=== PATIENT | male | born 1945 | race Caucasian/White ===

== ENCOUNTER → 2019-02-08 08:34 | Outpatient (CLI) | payer MEDICARE, OTHER, SELFPAY ==
[2016-07-09 14:46] VITALS: BMI 29.7
[2019-02-08 09:17] LABS: Hemoglobin 13.4 g/dl (13.0-16.5); Mean Corp Hgb Conc 33.5 g/gl (32-36); Mean Corpuscular Hgb 28.3 pg (27.0-32.0); Mean Corpuscular Volume 84.4 fL (80-94); Mean Platelet Vol. 8.5 fl (6.2-12.0); Platelet Count 214 K/mm3 (150-450); RBC Distribution Width CV 15.8 % (11.6-14.6); RBC Distribution Width SD 47.9 fl (35.1-43.9); Red Blood Count 4.74 M/mm3 (4.6-6.2); White Blood Count 4.5 K/mm3 (4.4-11.0)
[2019-02-08 09:22] LABS: Scan Indicated on CBC? Y/N NO
[2019-02-08 09:50] LABS: Progesterone Level 0.27 ng/mL (See Comment); Vitamin B12 377 pg/mL (211-911); Vitamin D,25 Hydroxy 31.2 ng/mL (29.95-100.01)
[2019-02-08 10:02] LABS: Homocysteine 9.4 umol/L (3.2-10.7)
[2019-02-08 10:09] LABS: Hemoglobin A1c 7.5 % (4.2-6.3)
[2019-02-08 11:00] LABS: ALB/GLOB Ratio 1.1 RATIO (0.9-2.4); AST(SGOT) 11 U/L (15-37); Alanine Aminotransfer ALT/SGPT 27 U/L (16-61); Albumin, Serum 3.7 g/dL (3.2-5.0); Alkaline Phosphatase 71 U/L (45-117); Anion Gap 5 (5-15); BUN 18 mg/dL (7-18); BUN/Creat Ratio 18.5 RATIO (10-20); CRP 3.15 mg/L (0.0-3.0); Calcium,Total 8.8 mg/dL (8.5-10.1); Chloride 108 mmol/L (98-107); Cholesterol 221 mg/dL (200); Creatinine, Serum 0.97 mg/dL (0.70-1.30); EST Glomerular Filtration Rate 80 mL/min (>60); Est Glom Filt Rate - Afr Amer 97 mL/min (>60); Estradiol 29.9 pg/mL; Follicle Stimulating Hormone 7.3 mIU/mL; Free T3 2.7 pg/mL (2.18-3.98); Globulin 3.4 g/dL (2.2-4.2); Glucose 221 mg/dL (74-106); High Density Lipoprotein 38 mg/dL; Iron 66 ug/dL (65-175); Luteinizing Hormone 3.2 mIU/mL; Magnesium 2.1 mg/dL (1.6-2.6); PSA,Total - Annual Screen 3.23 ng/mL (0.00-4.00); Potassium 4.2 mmol/L (3.5-5.1); Prolactin 6.7 ng/mL; Protein, Total 7.1 g/dL (6.4-8.2); Sodium Level 140 mmol/L (136-145); T4 Free Direct 1.15 ng/dL (0.76-1.46); Thyroid Stim Hormone (TSH) 2.09 uIU/mL (0.358-3.74); Triglycerides 128 mg/dL; Very Low Density Lipoprotein 26 mg/dL (5-40)
[2019-02-08 22:56] LABS: CRP, High Sensitivity Cardiac 3.21 mg/L
[2019-02-12 12:06] LABS: DHEA Sulfate 88.7 ug/dL (30.9-295.6); Insulin Like Growth Factor 207 ng/mL (41-179); Testosterone, % Free 2.65 % (1.50-4.20); Testosterone, Free 7.13 ng/dL (5.00-21.00)
[2019-02-13 13:12] LABS: Sex Hormone-binding Globulin 40.1 nmol/L (19.3-76.4); Testosterone, Total 269 ng/dL (264-916)
== END ==
PROVIDERS: Family Provider Internal Medicine; PCP Internal Medicine; Referring Provider Registered Nurse; Visit Provider Registered Nurse
DX: M62.81 Muscle weakness (generalized) (principal); E11.9 Type 2 diabetes mellitus without complications; E88.81 Metabolic syndrome and other insulin resistance; R68.82 Decreased libido; E66.9 Obesity, unspecified
CPT/HCPCS: 36415; 80053; 80061; 82306; 82533; 82607; 82627; 82670; 82746; 83001; 83002; 83036; 83090; 83540; 83735; 84144; 84146; 84153; 84270; 84305; 84402; 84403; 84436; 84439; 84443; 84481; 85027; 86140; 86141; 82626; G0103

== ENCOUNTER → 2019-09-18 10:04 | Outpatient (CLI) | payer MEDICARE, OTHER, SELFPAY ==
[2016-07-09 14:46] VITALS: BMI 29.7
[2019-09-18 11:16] LABS: Hematocrit 41.3 % (40-54); Hemoglobin 12.8 g/dL (13.0-16.5); Mean Corpuscular Hgb 24.1 pg (27.0-32.0); Mean Corpuscular Volume 77.8 fL (80-94); Mean Platelet Vol. 8.9 fl (6.2-12.0); Platelet Count 254 K/mm3 (150-450); RBC Distribution Width CV 15.8 % (11.6-14.6); RBC Distribution Width SD 44.2 fl (35.1-43.9); Red Blood Count 5.31 M/mm3 (4.6-6.2); White Blood Count 5.1 K/mm3 (4.4-11.0)
[2019-09-18 11:52] LABS: Progesterone Level 0.39 ng/mL (See Comment); Vitamin B12 371 pg/mL (211-911)
[2019-09-18 14:18] LABS: AST(SGOT) 8 U/L (15-37); Alanine Aminotransfer ALT/SGPT 22 U/L (16-61); Albumin, Serum 3.5 g/dL (3.2-5.0); Alkaline Phosphatase 55 U/L (45-117); Anion Gap 2 (5-15); BUN 16 mg/dL (7-18); BUN/Creat Ratio 13.6 RATIO (10-20); CRP < 2.90 mg/L (0.0-3.0); Calcium,Total 8.5 mg/dL (8.5-10.1); Chloride 105 mmol/L (98-107); Cholesterol 196 mg/dL (200); Creatinine, Serum 1.18 mg/dL (0.70-1.30); EST Glomerular Filtration Rate 64 mL/min (>60); Est Glom Filt Rate - Afr Amer 78 mL/min (>60); Estradiol 43.5 pg/mL; Follicle Stimulating Hormone 0.5 mIU/mL; Free T3 2.8 pg/mL (2.18-3.98); Globulin 3.5 g/dL (2.2-4.2); Glucose 260 mg/dL (74-106); High Density Lipoprotein 34 mg/dL; Luteinizing Hormone < 0.2 mIU/mL; Potassium 4.3 mmol/L (3.5-5.1); Prolactin 13.6 ng/mL; Sodium Level 134 mmol/L (136-145); T4 Free Direct 1.09 ng/dL (0.76-1.46); T4 Total, Thyroxin 9.5 ug/dL (4.5-12.1); Thyroid Stim Hormone (TSH) 1.87 uIU/mL (0.358-3.74); Triglycerides 86 mg/dL; Very Low Density Lipoprotein 17 mg/dL (5-40)
[2019-09-21 08:08] LABS: DHEA Sulfate 70.3 ug/dL (30.9-295.6); Insulin Like Growth Factor 206 ng/mL (41-179); Testosterone, % Free 3.32 % (1.50-4.20); Testosterone, Free 22.97 ng/dL (5.00-21.00)
[2019-09-21 13:50] LABS: Sex Hormone-binding Globulin 23.5 nmol/L (19.3-76.4); Testosterone, Total 692 ng/dL (264-916)
== END ==
PROVIDERS: Family Provider Internal Medicine; PCP Internal Medicine; Referring Provider Nurse Practitioner Family; Visit Provider Nurse Practitioner Family
DX: R53.82 Chronic fatigue, unspecified (principal); M62.81 Muscle weakness (generalized); R68.82 Decreased libido; E66.9 Obesity, unspecified; Z12.5 Encounter for screening for malignant neoplasm of prostate
CPT/HCPCS: 36415; 80053; 80061; 82533; 82607; 82627; 82670; 82746; 83001; 83002; 83735; 84144; 84146; 84270; 84305; 84402; 84403; 84436; 84439; 84443; 84481; 85027; 86140; 82626

== ENCOUNTER → 2019-11-15 08:51 | Outpatient (CLI) | payer MEDICARE, SELFPAY ==
[2016-07-09 14:46] VITALS: BMI 29.7
[2019-11-15 09:31] LABS: Hematocrit 43.5 % (40-54); Hemoglobin 13.7 g/dL (13.0-16.5); Mean Corp Hgb Conc 31.5 g/dL (32-36); Mean Corpuscular Hgb 24.4 pg (27.0-32.0); Mean Corpuscular Volume 77.5 fL (80-94); Mean Platelet Vol. 8.8 fl (6.2-12.0); Platelet Count 270 K/mm3 (150-450); RBC Distribution Width CV 16.3 % (11.6-14.6); RBC Distribution Width SD 45.4 fl (35.1-43.9); Red Blood Count 5.61 M/mm3 (4.6-6.2); White Blood Count 6.7 K/mm3 (4.4-11.0)
[2019-11-15 10:17] LABS: Progesterone Level 0.42 ng/mL (See Comment); Vitamin B12 497 pg/mL (211-911)
[2019-11-15 10:35] LABS: ALB/GLOB Ratio 0.9 RATIO (0.9-2.4); AST(SGOT) 9 U/L (15-37); Alanine Aminotransfer ALT/SGPT 24 U/L (16-61); Albumin, Serum 3.5 g/dL (3.2-5.0); Alkaline Phosphatase 57 U/L (45-117); Anion Gap 5 (5-15); BUN 20 mg/dL (7-18); BUN/Creat Ratio 16.4 RATIO (10-20); Calcium,Total 8.8 mg/dL (8.5-10.1); Chloride 105 mmol/L (98-107); Cholesterol 206 mg/dL (200); Creatinine, Serum 1.22 mg/dL (0.70-1.30); EST Glomerular Filtration Rate 62 mL/min (>60); Est Glom Filt Rate - Afr Amer 75 mL/min (>60); Estradiol 59.6 pg/mL; Globulin 3.8 g/dL (2.2-4.2); Glucose 239 mg/dL (74-106); High Density Lipoprotein 35 mg/dL; Potassium 4.3 mmol/L (3.5-5.1); Protein, Total 7.3 g/dL (6.4-8.2); Sodium Level 137 mmol/L (136-145); Triglycerides 105 mg/dL; Very Low Density Lipoprotein 21 mg/dL (5-40)
[2019-11-18 12:07] LABS: Testosterone, % Free 3.91 % (1.50-4.20)
[2019-11-20 15:40] LABS: DHEA Sulfate 78.8 ug/dL (30.9-295.6); Testosterone, Total 555 ng/dL (264-916)
== END ==
PROVIDERS: PCP Internal Medicine; Referring Provider Nurse Practitioner Family; Visit Provider Nurse Practitioner Family
DX: R53.82 Chronic fatigue, unspecified (principal); M62.81 Muscle weakness (generalized); R68.82 Decreased libido
CPT/HCPCS: 36415; 80053; 80061; 82607; 82627; 82670; 82746; 84144; 84402; 84403; 85027; 82626

== ENCOUNTER → 2020-03-21 09:12 | Outpatient (CLI) | payer MEDICARE, SELFPAY ==
[2016-07-09 14:46] VITALS: BMI 29.7
[2020-03-21 10:20] LABS: Hematocrit 45.4 % (40-54); Hemoglobin 14.4 g/dL (13.0-16.5); Mean Corp Hgb Conc 31.7 g/dL (32-36); Mean Corpuscular Hgb 26.1 pg (27.0-32.0); Mean Corpuscular Volume 82.4 fL (80-94); Platelet Count 228 K/mm3 (150-450); RBC Distribution Width CV 16.3 % (11.6-14.6); RBC Distribution Width SD 48.3 fl (35.1-43.9); Red Blood Count 5.51 M/mm3 (4.6-6.2); White Blood Count 5.4 K/mm3 (4.4-11.0)
[2020-03-21 12:00] LABS: Vitamin B12 312 pg/mL (211-911)
[2020-03-21 12:01] LABS: AST(SGOT) 12 U/L (15-37); Alanine Aminotransfer ALT/SGPT 28 U/L (16-61); Albumin, Serum 3.6 g/dL (3.2-5.0); Alkaline Phosphatase 61 U/L (45-117); Anion Gap 7 (5-15); BUN 22 mg/dL (7-18); BUN/Creat Ratio 20.8 RATIO (10-20); Chloride 103 mmol/L (98-107); Cholesterol 230 mg/dL (200); Creatinine, Serum 1.06 mg/dL (0.70-1.30); EST Glomerular Filtration Rate 73 mL/min (>60); Est Glom Filt Rate - Afr Amer 88 mL/min (>60); Estradiol 35.3 pg/mL; Globulin 3.7 g/dL (2.2-4.2); Glucose 236 mg/dL (74-106); High Density Lipoprotein 33 mg/dL; Protein, Total 7.3 g/dL (6.4-8.2); Sodium Level 136 mmol/L (136-145); Triglycerides 145 mg/dL; Very Low Density Lipoprotein 29 mg/dL (5-40)
[2020-03-21 12:46] LABS: Progesterone Level < 0.21 ng/mL (See Comment)
[2020-03-26 09:36] LABS: Testosterone, % Free 2.93 % (1.50-4.20); Testosterone, Free 10.93 ng/dL (5.00-21.00)
[2020-03-26 15:59] LABS: DHEA Sulfate 63.5 ug/dL (30.9-295.6); Testosterone, Total 373 ng/dL (264-916)
== END ==
PROVIDERS: PCP Internal Medicine; Referring Provider Nurse Practitioner Family; Visit Provider Nurse Practitioner Family
DX: R53.82 Chronic fatigue, unspecified (principal); R68.82 Decreased libido; M62.81 Muscle weakness (generalized); I10 Essential (primary) hypertension; R73.9 Hyperglycemia, unspecified
CPT/HCPCS: 36415; 80053; 80061; 82607; 82627; 82670; 82746; 84144; 84402; 84403; 85027; 82626

== ENCOUNTER 2020-05-01 08:55 | Day surgery (SDC) | payer MEDICARE, SELFPAY ==
[2016-07-09 14:46] VITALS: BMI 29.7
[2020-04-30 12:52] VITALS: BMI 31.4
--- NOTE | 2020-04-30 13:21 | EKG12_ITS ---
Test Reason : PRE OP Blood Pressure : / mmHG Vent. Rate : 065 BPM Atrial Rate : 065 BPM P-R Int : 216 ms QRS Dur : 120 ms QT Int : 414 ms P-R-T Axes : 034 -07 047 degrees QTc Int : 430 ms Sinus rhythm with 1st degree A-V block Inferior infarct , age undetermined , cannot be excluded Abnormal ECG Confirmed by MANOHAR MCBRIDE, CECY ([id number]), slot editor JAI DEL CID ([id number]) on 05/03/2020 2:38:36 PM Referred By: Wallace Galicia Confirmed By:CECY VILLELA MD
[2020-04-30 13:57] LABS: Absolute Lymphocyte Count 2.16 X10^3/uL (0.83-4.51); Absolute Neutrophil Count 4.5 X10^3/uL (2.0-7.7); Basophil# 0.03 X10^3/uL; Basophil% 0.4 % (0-1); Eosinophils% 2.7 % (0-5); Hematocrit 43.6 % (40-54); Hemoglobin 14.4 g/dL (13.0-16.5); Lymphocyte # 2.16 X10^3/ul (4.0); Lymphocyte % 28.7 % (19-41); Mean Corpuscular Hgb 27.5 pg (27.0-32.0); Mean Corpuscular Volume 83.4 fL (80-94); Mean Platelet Vol. 8.9 fl (6.2-12.0); Monocyte# 0.63 X10^3/uL; Monocyte% 8.4 % (0-10); NRBC Flagged by Analyzer 0 % (0-5); Neutrophil # 4.48 X10^3/uL (2.7-7.7); Neutrophil % 59.5 % (47-70); Platelet Count 247 K/mm3 (150-450); RBC Distribution Width CV 15.8 % (11.6-14.6); RBC Distribution Width SD 47.2 fl (35.1-43.9); Red Blood Count 5.23 M/mm3 (4.6-6.2); White Blood Count 7.5 K/mm3 (4.4-11.0)
[2020-04-30 14:17] LABS: Hemoglobin A1c 9.1 % (3.8-5.6)
[2020-04-30 14:25] LABS: Anion Gap 5 (5-15); BUN 24 mg/dL (7-18); BUN/Creat Ratio 21.8 RATIO (10-20); Calcium,Total 9.6 mg/dL (8.5-10.1); Chloride 107 mmol/L (98-107); EST Glomerular Filtration Rate 70 mL/min (>60); Est Glom Filt Rate - Afr Amer 84 mL/min (>60); Glucose 177 mg/dL (74-106); Potassium 4.1 mmol/L (3.5-5.1); Sodium Level 139 mmol/L (136-145)
[2020-04-30 15:18] LABS: Probe Check PASS; Specimen Processing Control PASS
[2020-05-01] VITALS (7 sets, daily range): BP systolic 121–160; BP diastolic 63–90; PULSE 59–81; RESP 16–18; TEMP 33.1–36.9; O2SAT 88–100; BMI 31.6
--- NOTE | 2020-05-01 | HERN_PTH ---
PATIENT: SUDHEER HERNANDEZ LOC: [facility] [place] U#:[id number] AGE/SX: 74/M ROOM: RE05/01/[address]: Dr. Wallace Galicia MD : 1945 BED: DIS: 05/01/2020 SPEC #: [id number] RECD: 05/01/20 14:48 STATUS: VILMA REAdam #: [id number] JOYD: 05/01/20 00:[address]: Wallace Galicia DEPT: SURGICAL PATHOLOGY RECD BY: Cliff De Anda ENTERED: 05/02/20 12:03 SP TYPE: Hernia OTHR DR: Dr. Katelyn Baker MD Tissues: HERNIA Procedures: Surgery Specimen Level III HEADER OPERATION: Incarcerated umbilical hernia repair PRE-OP DIAGNOSIS: Incarcerated umbilical hernia TISSUE SUBMITTED: Hernia sac and contents MICROSCOPIC DIAGNOSIS Hernia sac and contents, herniorrhaphy: Fibrosis and chronic inflammation. Hemorrhagic fat necrosis, nodular. AM:maldonado 05/03/20 MICROSCOPIC DESCRIPTION Slides are reviewed. GROSS DESCRIPTION Received in fixative is one container labeled with the patient's name and designated hernia sac and contents. The specimen consists of a piece of fibromembranous, fibroadipose tissue, sac-like structure measuring 3.5 x 2.5 x 1.5 cm. Also present in the container are two pieces of adipose tissue measuring in aggregate 6.5 x 5 x 1.5 cm. Also present in the container is an ovoid piece of pink, congested nodule measuring 3 x 2.5 x 2 cm. Sections of the ovoid nodule reveal congested and hemorrhagic cut surfaces. Security Shift Supervisor sections are submitted in three cassettes. Cassettes 2 and 3 contain the sections from the ovoid, congested nodule. / SJ:maldonado 05/02/20 TC:5 [facility]: [id number]
[2020-05-01 09:26] LABS: Bedside Glucose 209 mg/dL (70-110)
[2020-05-01] MEDS: Lactated Ringers 1,000 ML 100 ML IV (09:46)
--- NOTE | 2020-05-01 12:38 | PCM.HP.BLA ---
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: No Is patient in pain?: Yes Allergies No Known Allergies Allergy (Verified 04/30/20 12:40) Medications glipiZIDE [Glucotrol] 15 mg PO BID 09/25/13 [History Confirmed 04/30/20] metFORMIN HCl [Glucophage] 1,000 mg PO BIDCM 09/25/13 [History Confirmed 04/30/20] Ascorbic Acid [Vitamin C] 1,000 mg PO DAILY 04/30/20 [History Confirmed 04/30/20] Multivitamin [Daily Multiple Vitamin] 1 ea PO DAILY 04/30/20 [History Confirmed 04/30/20] [place]-3S/Dha/Epa/Fish Oil [Fish Oil 1,200 mg Softgel] 2 ea PO DAILY 04/30/20 [History Confirmed 04/30/20] Turmeric/Turmeric Root Extract [Turmeric 500 mg Capsule] 2 tab PO DAILY 04/30/20 [History Confirmed 04/30/20] cephalexin 500 mg capsule 500 mg PO .QID #20 cap 04/30/20 [Rx Confirmed 04/30/20] lisinopril 10 mg-hydrochlorothiazide 12.5 mg tablet 1 tab PO DAILY 04/30/20 [History Confirmed 04/30/20] [facility], LAT[facility] Medical History Frostnip (Acute) Surgical History History of arthroscopy of left knee (Acute) history skin graft right leg (Acute) Family History Sister Cancer Diabetes Social History (Updated 04/30/20 @ 12:[address] Wallace Galicia MD) Smoking Status: Never smoker alcohol intake: never substance use type: does not use HPI HPI HPI: LUISA HERNANDEZ, is a 74 M who presents to the office today for surgical consultation regarding a one-week long history of an incarcerated umbilical hernia. The patient states that he has had an umbilical hernia for several years. Intermittently would become uncomfortable would last several days and then resolved. On this occasion it did not resolve. He was seen at urgent care and instructed that he had a umbilical hernia and surgical consultation was recommended. He denies fever or chills or sweats or bright red blood per rectum or or melena. Appetites been normal. Normal bowel movements. States that over the past period of time his blood sugars have been running higher that that is been over more of an extended period of time as he is already had a hemoglobin A1c that was 8.3. He did have a change in his medications. He notes that he has coronary stents. He denies chest pain. Denies heart attack. Denies CVA. He has not had any nausea or vomiting. There is been no imaging. He has not had any previous abdominal surgery. He has not had any previous groin hernia surgery HPI HPI HPI: LUISA HERNANDEZ, is a 74 M who presents to the office today for ROS General General: No weight change, appetite, fatigue, colon cancer, breast cancer or weakness HEENT HEENT: No difficulty swallowing, eye injury, eye surgery, swollen glands or hoarseness Endo Endocrine: Yes diabetes mellitus; no thyroid disease, thyroid cancer, Hair loss, heat intolerance or cold intolerance Skin Skin: No rash or changing moles Breast Breast: No left breast lump, right breast lump, nipple discharge, breast pain, abnormal mammogram, abnormal US or breast enlargement Musc Musculoskeletal: Yes back problems and arthritis; no rheumatoid arthritis, gout or joint pain Cardio Cardiovascular: Yes high blood pressure; no murmur, pacemaker, heart disease, atrial fibrillation, heart attack, heart stent, palpitations, shortness of breat with exertion or chest pain Psych Psychiatric: No depression, anxiety or hearing voices Resp Respiratory: No shortness of breath, Yes sleep apnea, No cough, No COPD, No asthma, No emphysema, No wheezing Gastro Gastrointestinal: No abdominal pain, No nausea or vomiting, No diarrhea, No constipation, No blood in stool, Yes acid reflux, No hemorrhoids, No ulcers, No gallbladder problem, No black,tarry stools Sourav Hematologic: No blood thinners, No blood disorders, No bleeding, No anemia, No blood clots Neuro Neurologic: No system reviewed and no additional complaints, except as docu, No as per HPI, No abnormal walking, No abnormal hearing, No abnormal movements, No abnormal speech, No behavioral changes, No burning sensations, No confusion, No seizure-like activity, No unsteadiness, No dizziness, No localized weakness, No frequent falls, No headache(s), No lack of coordination, No loss of vision, No memory loss, Yes numbness, No other visual disturbances, No radiating pain, No restless legs, No sensory deficit, No fainting, Yes tingling, No tremor(s), No weakness, No other Exam Const General: cooperative, comfortable, no acute distress Nutritional Appearance: obese Orientation: alert, awake, oriented x3 HENMT Head: normal to inspection Eyes General: appearance normal, both eyes and all related structures Chest Breast Palpation: No nipple discharge Resp Effort & Inspection: normal respiratory effort Auscultation: clear to auscultation bilaterally Cardio Rate: regular rate Rhythm: regular rhythm Heart Sounds: no murmurs GI Other: Obese, incarcerated erythematous umbilical hernia tender, remainder the abdomen is soft and nontender, bowel sounds present, Neuro Cognition: normal cognition Extrem General: no calf tenderness Psych Affect: normal affect Assessment & Plan Problems 1. Incarcerated umbilical hernia K42.0 Plan Incarcerated umbilical hernia, mild cellulitis at the site. I recommend that we initiate cephalexin 500 g orally 4 times daily and I have written for 5-day supply. I tried to add him onto the OR schedule today but I was instructed that time he would not permit. We therefore will get him COVID tested and have him added on tomorrow. I do not believe that he can wait any longer. Admittedly he is 1 week into this episode so it is hard to cry this is a immediate emergency. He is aware of the technique, benefit, risk, alternatives. He is aware that I will not be able to utilize mesh in the repair. He is aware that the wound may need to be left open and packed. He is aware that we may utilize a drain instead. He is aware that this may be overnight surgery or outpatient procedure. We additionally discussed Covid-19. The [facility] is currently reporting a low local incidence. Cc: Dr. Katelyn Galicia M.D., F.A.C.S. Medications New: cephalexin 500 mg PO .QID 20 caps 0RF Coding Level of Care Code Off vis,new,level 3 Diagnoses Incarcerated umbilical hernia K42.0 I have re-examined the patient. There are no clinical changes since date of exam.
--- NOTE | 2020-05-01 12:39 | PCM.DC.GS ---
Discharge Diet: Light diet - advance as tolerated - if you have questions about your diet instructions, please talk to you doctor. Discharge Activity: May Not Drive - for 1 week or while taking narcotic pain medicine. May shower in (days): 1 Lifting Restrictions: 10 pounds Call your doctor if your incision/area has: Continuous Slow Oozing, Sudden Increased Bleeding, Increased Pain/ Swelling, Increased Redness, Foul Smelling Discharge Call your doctor if you observe: Fever of 101 or Higher Suture Line Care: Avoid Pulling/Pushing, Avoid Pinching/Bending Additional Dressing/Incision Instructions:: Change or remove dressing in 4 days. Leave steri-strips in place for 1 week. Allergies/Adverse Reactions: Allergies No Known Allergies Allergy (Verified 05/01/20 09:28) Medications to take at Discharge glipiZIDE [Glucotrol] 15 mg PO BID 09/25/13 metFORMIN HCl [Glucophage] 1,000 mg PO BIDCM 09/25/13 Ascorbic Acid [Vitamin C] 1,000 mg PO DAILY 04/30/20 Multivitamin [Daily Multiple Vitamin] 1 ea PO DAILY 04/30/20 [place]-3S/Dha/Epa/Fish Oil [Fish Oil 1,200 mg Softgel] 2 ea PO DAILY 04/30/20 Turmeric/Turmeric Root Extract [Turmeric 500 mg Capsule] 2 tab PO DAILY 04/30/20 cephalexin 500 mg capsule 500 mg PO .QID #20 cap 04/30/20 lisinopril 10 mg-hydrochlorothiazide 12.5 mg tablet 1 tab PO DAILY 04/30/20 Primary Care Physician: Katelyn Baker MD [Primary Care Provider] - Test Results: Test results from this visit will be discussed in further detail at your follow-up appointment, if applicable. Please Follow Up With: Wallace Galicia MD - [phone] When: Call to make an appointment to be seen in about 10 days.
[2020-05-01] MEDS: Cefazolin 2 GM in 0.9% Normal Saline 100 ML IV (13:12)
--- NOTE | 2020-05-01 13:53 | PCM.OPRPT ---
Problem List (1) Incarcerated umbilical hernia Status: Acute Report of Operation Date of Procedure: 05/01/20 Pre-Operative Diagnosis: Incarcerated umbilical hernia Post-Operative Diagnosis: Strangulated umbilical hernia Surgery/Procedure Performed:: Strangulated umbilical herniorrhaphy Description of Surgical Findings:: Timeout and informed consent was obtained. 74-year-old gentleman was taken to the operating placed on the table underwent general endotracheal intubation anesthesia. Ancef 2 g given intravenously preoperatively. The abdomen was sterilely prepped and draped. Inferior to the umbilicus a transverse incision was created sharp dissection carried down through the subcutaneous tissue. The hernia sac was encountered was densely adherent to the umbilical skin carefully and tediously I dissected it free I opened the sac there was a small ball of necrotic tissue that literally came out there was some inflamed peritoneal fatty tissue. Where needed I secured that with 0 Vicryl suture ligatures and excised that tissue. There was no evidence of any bowel involvement. I repaired the peritoneum with a running suture of 0 Vicryl. I then repaired the fascia which had a significant defect of at least 4 cm of the meter with multiple simple sutures of 0 Nurolon. The fascia and skin was anesthetized with 0.5% Marcaine. A total of 30 cc was used. The skin edges were approximated opted for Monocryl subdermal stitches. Steri-Strips Telfa cottonball OpSite dressings applied. Sponge and instrument and needle counts were reported to the surgeon to be correct. Blood loss was minimal. Specimen is incarcerated umbilical hernial contents from the strangulated preperitoneal fatty tissue. Drains none. Blood loss minimal. The patient was taken to the recovery room in satisfactory edition without apparent complication Wallace Galicia M.D., F.A.C.S. Type of Anesthesia:: General Anesthesiologist: Og Shook
[2020-05-01] MEDS: Bupivacaine Mpf 0.5% 30 ML VIAL (14:05)
[2020-05-01 14:41] LABS: Bedside Glucose 135 mg/dL (70-110)
[2020-05-01] MEDS: HYDROcodone Bitartrate/Apap 5/325 Tablet PO ×2 (15:56→16:46)
== END 2020-05-01 17:32 | disposition home or self-care (01) ==
LOC: SDC 08:56 → AC 08:56
PROVIDERS: Anesthesiology; PCP Internal Medicine; Referring Provider Surgery; Visit Provider Surgery
PROC: (CPT 49587; principal; 2020-05-01 10:50)
DX: K42.0 Umbilical hernia with obstruction, without gangrene (principal); I10 Essential (primary) hypertension; E78.00 Pure hypercholesterolemia, unspecified; E11.9 Type 2 diabetes mellitus without complications; G47.30 Sleep apnea, unspecified; E66.9 Obesity, unspecified; Z68.31 Body mass index [BMI] 31.0-31.9, adult; Z79.84 Long term (current) use of oral hypoglycemic drugs; Z79.899 Other long term (current) drug therapy; Z20.828 Contact with and (suspected) exposure to other viral communicable diseases
CPT/HCPCS: 00830; 49587; 36415; 80048; 82962; 83036; 85025; 87635; 88302; 88304; 93005; J7120; J2405; U0003

== ENCOUNTER → 2020-08-28 09:09 | Outpatient (CLI) | payer MEDICARE, SELFPAY ==
[2016-07-09 14:46] VITALS: BMI 29.7
[2020-05-01 09:28] VITALS: BMI 31.6
[2020-08-28 10:30] LABS: Absolute Lymphocyte Count 1.46 X10^3/uL (0.83-4.51); Absolute Neutrophil Count 2.2 X10^3/uL (2.0-7.7); Basophil# 0.04 X10^3/uL; Basophil% 0.9 % (0-1); Eosinophil# 0.23 X10^3/uL; Eosinophils% 5.3 % (0-5); Hematocrit 42.6 % (40-54); Hemoglobin 14.1 g/dL (13.0-16.5); Lymphocyte # 1.46 X10^3/ul (4.0); Lymphocyte % 33.6 % (19-41); Mean Corp Hgb Conc 33.1 g/dL (32-36); Mean Corpuscular Hgb 29.4 pg (27.0-32.0); Mean Corpuscular Volume 88.8 fL (80-94); Mean Platelet Vol. 9.1 fl (6.2-12.0); Monocyte# 0.41 X10^3/uL; Monocyte% 9.4 % (0-10); NRBC Flagged by Analyzer 0 % (0-5); Neutrophil # 2.19 X10^3/uL (2.7-7.7); Neutrophil % 50.6 % (47-70); Platelet Count 222 K/mm3 (150-450); RBC Distribution Width CV 14.2 % (11.6-14.6); RBC Distribution Width SD 45.7 fl (35.1-43.9); White Blood Count 4.3 K/mm3 (4.4-11.0)
[2020-08-28 11:00] LABS: Color, Urine Straw (Yellow); Glucose, Dipstick Normal (Normal); Ketone-Dipstick Negative (Negative); Leukocyte Esterase-Dipstick Negative /ul (Negative); Nitrite-Dipstick Negative (Negative); Occult Blood-Urine Negative /ul (Negative); Protein-Dipstick Negative (Negative); Urine Bilirubin Dipstick Negative (Negative); Urine Clarity Clear (Clear); Urine Urobilinogen Normal (Normal)
[2020-08-28 11:12] LABS: AST(SGOT) 9 U/L (15-37); Alanine Aminotransfer ALT/SGPT 26 U/L (16-61); Albumin, Serum 3.6 g/dL (3.2-5.0); Alkaline Phosphatase 62 U/L (45-117); Anion Gap 5 (5-15); BUN 19 mg/dL (7-18); BUN/Creat Ratio 19.4 RATIO (10-20); Calcium,Total 9.1 mg/dL (8.5-10.1); Chloride 106 mmol/L (98-107); Cholesterol 226 mg/dL (200); Creatinine, Serum 0.98 mg/dL (0.70-1.30); EST Glomerular Filtration Rate 79 mL/min (>60); Est Glom Filt Rate - Afr Amer 96 mL/min (>60); Globulin 3.7 g/dL (2.2-4.2); Glucose 214 mg/dL (74-106); High Density Lipoprotein 40 mg/dL; Potassium 4.2 mmol/L (3.5-5.1); Protein, Total 7.3 g/dL (6.4-8.2); Sodium Level 138 mmol/L (136-145); Triglycerides 129 mg/dL; Very Low Density Lipoprotein 26 mg/dL (5-40)
[2020-08-30 12:23] LABS: BNP,B-Type NATRIURETIC PEPTIDE 14.2 pg/mL (0-100)
[2020-08-30 14:39] LABS: Vitamin D,25 Hydroxy 44.3 ng/mL
[2020-08-30 20:08] LABS: Red Blood Cell Count Test/G6PD 4.71 x10E6/uL (4.14-5.80)
[2020-08-30 21:39] LABS: G6PD Quant Test 246 (127-427)
== END ==
PROVIDERS: PCP Internal Medicine; Referring Provider Nurse Practitioner Family; Visit Provider Nurse Practitioner Family
DX: R53.82 Chronic fatigue, unspecified (principal); M62.81 Muscle weakness (generalized); I10 Essential (primary) hypertension; E11.9 Type 2 diabetes mellitus without complications; E78.5 Hyperlipidemia, unspecified; R06.02 Shortness of breath
CPT/HCPCS: 36415; 80053; 80061; 81002; 82306; 82955; 83880; 85025

== ENCOUNTER 2020-12-02 14:16 | Outpatient (RCR) | payer MEDICARE, SELFPAY ==
[2016-07-09 14:46] VITALS: BMI 29.7
[2020-05-01 09:28] VITALS: BMI 31.6
== END 2020-12-30 23:59 | disposition home or self-care (01) ==
LOC: IMMUN 14:16
PROVIDERS: PCP Internal Medicine; Visit Provider Family Medicine
DX: Z23 Encounter for immunization (principal)
CPT/HCPCS: 0011A; 0012A; 91301

== ENCOUNTER → 2020-12-10 | Outpatient (CLI) | payer MEDICARE, SELFPAY ==
[2016-07-09 14:46] VITALS: BMI 29.7
[2020-05-01 09:28] VITALS: BMI 31.6
[2020-12-10 13:59] LABS: Fibrinogen 245 mg/dl (203-444); Partial Thromboplast Time 30.6 Seconds (24.1-36.2)
[2020-12-10 14:00] LABS: International Normalized Ratio 1.1; Prothrombin Time (Protime)PT. 13.6 SECONDS (11.7-14.9)
== END | disposition home or self-care (01) ==
LOC: LABSPEC 13:13
PROVIDERS: PCP Internal Medicine; Referring Provider Internal Medicine Hematology & Oncology; Visit Provider Internal Medicine Hematology & Oncology
DX: D68.9 Coagulation defect, unspecified (principal); R23.3 Spontaneous ecchymoses
CPT/HCPCS: 85384; 85610; 85730

== ENCOUNTER 2021-11-04 08:02 | Day surgery (SDC) | payer MEDICARE, SELFPAY ==
[2016-07-09 14:46] VITALS: BMI 29.7
[2021-11-04] VITALS (7 sets, daily range): BP systolic 120–141; BP diastolic 61–80; PULSE 60–74; RESP 16–18; TEMP 36–36.7; O2SAT 99–100; BMI 30.7
--- NOTE | 2021-11-04 08:35 | PCM.HP.STD ---
HPI - General HPI Narrative LUISA HERNANDEZ, is a 76 M who presents who presents for surveillance colonoscopy today. August 2016 was a previous one. He has a history of previous polyps. He presents via open access today. He has had no bright red blood per rectum or melena. No fever. July 2020 had COVID-19. He has been vaccinated since then. [facility] Medical History (Updated 11/04/21 @ 08:[address] Wallace Galicia MD) Back pain Cardiology follow-up encounter CPAP (continuous positive airway pressure) dependence Diabetes Frostnip Gastric reflux High cholesterol History of echocardiogram History of stress test Hypertension Incarcerated umbilical hernia Non-smoker Sleep apnea Wears glasses Home Medications glipizide 10 mg PO BREAKFAST 09/25/13 [History Last Taken Unknown] metformin 1,000 mg PO BIDCM 09/25/13 [History Last Taken Unknown] ascorbic acid (vitamin C) 1,000 mg PO DAILY 04/30/20 [History Last Taken Unknown] multivitamin 1 ea PO DAILY 04/30/20 [History Last Taken Unknown] zdjcw-5t-nxo-epa-fish oil 2 ea PO DAILY 04/30/20 [History Last Taken Unknown] turmeric-turmeric root extract 2 tab PO DAILY 04/30/20 [History Last Taken Unknown] atorvastatin 80 mg PO QHS 10/31/21 [History Last Taken Unknown] glipizide 20 mg PO DINNER 10/31/21 [History Last Taken Unknown] lisinopril-hydrochlorothiazide 0.5 tab PO DAILY 10/31/21 [History Last Taken Unknown] Allergy/AdvReac Type Severity Reaction Status Date / Time No Known Allergies Allergy Verified 11/04/21 08:19 Family History Sister Cancer Diabetes Surgical History History of arthroscopy of left knee History of cardiac catheterization history skin graft right leg Hx of cataract extraction Hx of umbilical hernia repair Social History (Updated 05/13/20 @ 08:[address] Wallace Galicia MD) Smoking Status: Never smoker alcohol intake: never substance use type: does not use ROS Constitutional Constitutional: Reports systems reviewed and no addt'l complaints, except as documented Cardiovascular Cardiovascular: Denies chest pain Respiratory/Chest Respiratory/Chest: Denies shortness of breath at rest Gastrointestinal Gastrointestinal: Denies abdominal pain, change in bowel habits, hematochezia or melena Vital Signs Vital Signs Vital Signs: 11/04/21 08:20 Temperature 96.8 F L Temperature Source Temporal Pulse Rate 73 Respiratory Rate 18 Respiratory Pattern Normal Blood Pressure 141/80 H Blood Pressure Mean 100 Blood Pressure Source Monitor Blood Pressure Position Semi-Fowlers Blood Pressure Location Right Arm Pulse Ox 100 Oxygen Delivery Method Room Air Weight Weight: 220 lb 7.396 oz Body Mass Index (BMI) 30.7 Physical Exam Const alert, oriented x3 and no apparent distress General Appearance: cooperative and comfortable Eyes General Eye: normal appearance of both eyes Neck General: normal visual inspection Chest inspection of chest normal Resp Effort and Inspection: able to speak in complete sentences and symmetric chest movement Auscultation: clear to auscultation bilaterally Cardio regular rate and regular rhythm GI soft to palpation, non-tender and non-distended Extremity no calf tenderness Neuro oriented x3 Psych thought process normal Results Lab / Micro Data Micro: Microbiology 11/03/21 08:37 Interface Orders SARS-CoV-2 Antigen (Rapid) - Final Assessment & Plan Assessment/Plan (1) Personal history of colonic polyps: PLAN: 76-year-old gentleman with a personal history of colon polyps. Plan to proceed with a colonoscopy with possible biopsy or polypectomy as indicated. He is aware of the technique, benefit, risk, alternatives. Previous colonoscopy was August 2016. We will proceed as indicated. Wallace Galicia M.D., F.A.C.S.
[2021-11-04] MEDS: Lactated Ringers 1,000 ML 15 ML IV (08:43)
--- NOTE | 2021-11-04 09:37 | OP.CCLET_ITS ---
11/04/2021 Katelyn Baker [address] [place] [address] Re : Colonoscopy procedure for Tomas Mckeon Dear Dr. Baker This procedure was performed on Thursday, November 04, 2021. My impressions and recommendations are as follows: Impressions : - Preparation of the colon was fair. - Non-thrombosed external hemorrhoids, non-thrombosed internal hemorrhoids and internal hemorrhoids that prolapse with straining, but spontaneously regress to the resting position (Grade II) found on digital rectal exam. - Diverticulosis in the sigmoid colon and in the descending colon. - Tortuous colon. - No specimens collected. Recommendations : - Discharge patient to home. - Resume previous diet. - Continue present medications. - Repeat colonoscopy is not recommended due to current age (66 years or older) for screening purposes. My findings are described in the full procedure note, which is enclosed. If I can be of further assistance, please feel free to contact me at Doctor phone number(s): Work: . Sincerely, Wallace Galicia MD 11/04/2021 9:36:52 AM This report has been signed electronically.
--- NOTE | 2021-11-04 09:37 | OP.COLON_ITS ---
Patient Name: Tomas Mckeon Procedure Date: 11/04/2021 8:40 AM Date of : 1945 Age: 76 Procedure: Colonoscopy Indications: High risk colon cancer surveillance: Personal history of colonic polyps Providers: Wallace Galicia MD Referring MD: Wallace Galicia MD Medicines: See the Anesthesia note for documentation of the administered medications Patient Profile: Last Colonoscopy: August 2016. Complications: No immediate complications. Procedure: Pre-Anesthesia Assessment: - Prior to the procedure, a History and Physical was performed, and patient medications and allergies were reviewed. The patient's tolerance of previous anesthesia was also reviewed. The risks and benefits of the procedure and the sedation options and risks were discussed with the patient. All questions were answered, and informed consent was obtained. Prior Anticoagulants: The patient has taken no previous anticoagulant or antiplatelet agents. ASA Grade Assessment: II - A patient with mild systemic disease. After reviewing the risks and benefits, the patient was deemed in satisfactory condition to undergo the procedure. After I obtained informed consent, the scope was passed under direct vision. Throughout the procedure, the patient's blood pressure, pulse, and oxygen saturations were monitored continuously. The pediatric colonoscope was introduced through the anus and advanced to the cecum, identified by appendiceal orifice and ileocecal valve. The colonoscopy was technically difficult and complex due to a tortuous colon. Successful completion of the procedure was aided by applying abdominal pressure. The patient tolerated the procedure well. The quality of the bowel preparation was fair. Scope In: 8:49:32 AM Scope Withdrawal Time 0 hours 7 minutes 14 seconds Scope Out: 9:30:50 AM Total Procedure Duration Time 0 hours 41 minutes 18 seconds Findings: The digital rectal exam findings include non-thrombosed external hemorrhoids, non-thrombosed internal hemorrhoids and internal hemorrhoids that prolapse with straining, but spontaneously regress to the resting position (Grade II). Pertinent negatives include normal prostate (size, shape, and consistency). Multiple diverticula were found in the sigmoid colon and descending colon. The colon (entire examined portion) was significantly tortuous. Advancing the scope required changing the patient to a supine position and using manual pressure. Impression: - Preparation of the colon was fair. - Non-thrombosed external hemorrhoids, non-thrombosed internal hemorrhoids and internal hemorrhoids that prolapse with straining, but spontaneously regress to the resting position (Grade II) found on digital rectal exam. - Diverticulosis in the sigmoid colon and in the descending colon. - Tortuous colon. - No specimens collected. Recommendation: - Discharge patient to home. - Resume previous diet. - Continue present medications. - Repeat colonoscopy is not recommended due to current age (66 years or older) for screening purposes. Procedure Code(s): --- Professional --- 87989, Colonoscopy, flexible; diagnostic, including collection of specimen(s) by brushing or washing, when performed (separate procedure) Diagnosis Code(s): --- Professional --- Z86.010, Personal history of colonic polyps K64.1, Second degree hemorrhoids K64.4, Residual hemorrhoidal skin tags K57.30, Diverticulosis of large intestine without perforation or abscess without bleeding Q43.8, Other specified congenital malformations of intestine CPT copyright 2017 [employer] [place] [employer]. All rights reserved. The codes documented in this report are preliminary and upon rigging foreman review may be revised to meet current compliance requirements. Wallace Galicia MD 11/04/2021 9:36:52 AM This report has been signed electronically. Number of Addenda: 0 Note Initiated On: 11/04/2021 8:40 AM
[2021-11-04 10:46] LABS: Bedside Glucose 156 mg/dL (70-110)
== END 2021-11-04 23:59 | disposition home or self-care (01) ==
LOC: EN 08:03 → AC 08:04
PROVIDERS: PCP Internal Medicine; Referring Provider Internal Medicine; Visit Provider Surgery
PROC: 0DJD8ZZ Inspection of Lower Intestinal Tract, Via Natural or Artificial Opening Endoscopic (ICD-10-PCS; CPT 45378; principal; 2021-11-04 08:55)
DX: Z12.11 Encounter for screening for malignant neoplasm of colon (principal); E11.9 Type 2 diabetes mellitus without complications; K64.1 Second degree hemorrhoids; K64.4 Residual hemorrhoidal skin tags; K57.30 Diverticulosis of large intestine without perforation or abscess without bleeding; I10 Essential (primary) hypertension; I44.0 Atrioventricular block, first degree; I51.7 Cardiomegaly; E78.00 Pure hypercholesterolemia, unspecified; Z79.84 Long term (current) use of oral hypoglycemic drugs; Z79.899 Other long term (current) drug therapy; Z86.010 Personal history of colon polyps; Z86.16 Personal history of COVID-19; Z20.822 Contact with and (suspected) exposure to COVID-19
CPT/HCPCS: 45378; 82962; 87426; C9803; J7120; J2405

== ENCOUNTER → 2024-09-07 | Outpatient (CLI) | payer MEDICARE, SELFPAY ==
[2024-08-09 15:14] VITALS: BMI 29.7
[2024-09-11 12:08] LABS: PSA, Free 1.19 ng/mL; PSA, Free % 11.2 % (.)
== END | disposition home or self-care (01) ==
PROVIDERS: PCP Internal Medicine; Referring Provider Urology; Visit Provider Urology
DX: R97.20 Elevated prostate specific antigen [PSA] (principal)
CPT/HCPCS: 36415; 84153; 84154

== ENCOUNTER → 2024-10-17 | Outpatient (CLI) | payer MEDICARE, SELFPAY ==
[2024-08-09 15:14] VITALS: BMI 29.7
--- NOTE | 2024-10-17 11:30 | MRI_ITS ---
STUDY: MR PROSTATE GLAND/ PELVIS WITH T WITHOUT CONTRAST REASON FOR EXAM: Male, 78 years old. elevated PSA TECHNIQUE: Standardized fat and water weighted pulse sequences were obtained in all 3 orthogonal planes, pre-and post contrast administration. IV 19cc clariscan was administered for the contrast portion of the examination. COMPARISON: CT of abdomen and pelvis dated July 29, 2017. FINDINGS: Prostate gland volume/size: 6.44 x 3.97 x 4.93 cm which is mildly enlarged Anterior fibromuscular stroma: Normal. Peripheral zone: Normal bilaterally with bright signal and no nodules or masses or enhancing lesions. Central zone: Diffusely heterogeneous and nodular with low signal hyperplastic nodules intervening cysts and fibrotic scarring bilaterally. Enhancement is also diffuse and symmetric. No positive diffusion weighted nodules or lesions are seen either on the right or left that would indicate malignancy. Transitional zone: Diffusely heterogeneous and nodular with low signal hyperplastic nodules intervening cysts and fibrotic scarring bilaterally. Enhancement is also diffuse and symmetric. No positive diffusion weighted nodules or lesions are seen either on the right or left that would indicate malignancy. Prostate capsule: Intact: Seminal vesicles: Normal fluid signal bilaterally. Pelvic sidewall lymphadenopathy: None demonstrated. Bony structures: No lytic or blastic or aggressive process. No demonstrated enhancing lesions. No bone marrow edema or infiltrative marrow replacement process is seen. No visualized pathologic fractures. Bladder: No demonstrated masses or filling defects/stones. Normal urinary bladder. Normal visualized small intestine. There are multiple colonic diverticula of the sigmoid colon consistent with chronic diverticulosis. Vessels: No significant or large aneurysm is demonstrated. Normal abdominal wall. MRI/Pelvis W/WO Contrast IMPRESSION: 1. BPH without evidence of a malignant neoplasm 2. PI-RADS 1: very low (clinically significant cancer is highly unlikely to be present) 3. Targeted image guided biopsy of nodules or area of interest can be performed for definitive pathologic assessment of the tissue and diagnosis 4. Prostate PET/CT exam can also be performed to determine if there is viable malignant neoplasm in the prostate gland. Prostate MRI reference: 15-30% of prostate cancers can go undetected on Prostate MRI. Monitoring and assessment by Primary physician, Urology, and oncology service recommended and treated clnically. (Cancers ([place]). 2022Sep 15;15(96):9043. doi: [id number] Prostate Cancers Invisible on Multiparametric MRI: Pathologic Features in Correlation with Whole-Mount Prostatectomy Roosevelt Johns 1,2,*, Moises Lundy 3, Obey Kumar 1,2, Erika Go 1,2, Fabien Rahman 4, Charlie Sanders 5, Arnaud Armenta 6, Mickey Driscoll 1,2, Laurence Ayoub 1,2) Reference information: Normal prostate tissue Benign prostatic hypertrophy cancer/tumor - low signal peripheral , transitional, and central zones malignancy appears as bright on DWI and low signal on ADC map Prostate imaging-reporting and data system (PI-RADS) PI-RADS 1: very low (clinically significant cancer is highly unlikely to be present) PI-RADS 2: low (clinically significant cancer is unlikely to be present) PI-RADS 3: intermediate (the presence of clinically significant cancer is equivocal) PI-RADS 4: high (clinically significant cancer is likely to be present) PI-RADS 5: very high (clinically significant cancer is highly likely to be present) PI-RADS X: component of exam technically inadequate or not performed Prostate malignancy distribution: Peripheral zone: 70-80% Transitional zone: 10-20% Central zone: 5% or less Electronically Signed: Max De Leon MD at 10:13 EST ,
== END | disposition home or self-care (01) ==
LOC: MRI 11:05
PROVIDERS: PCP Internal Medicine; Referring Provider Urology; Visit Provider Urology
DX: R97.20 Elevated prostate specific antigen [PSA] (principal)
CPT/HCPCS: 72197; A9575

== ENCOUNTER → 2025-04-18 | Outpatient (CLI) | payer MEDICARE, SELFPAY ==
[2024-08-09 15:14] VITALS: BMI 29.7
[2025-04-18 13:22] LABS: PSA,Total- Diagnostic 12.30 ng/mL (0.00-4.00)
== END | disposition home or self-care (01) ==
LOC: LAB 11:43
PROVIDERS: PCP Internal Medicine; Referring Provider Nurse Practitioner; Visit Provider Nurse Practitioner
DX: R97.20 Elevated prostate specific antigen [PSA] (principal)
CPT/HCPCS: 36415; 84153

== ENCOUNTER 2025-08-01 06:43 | Outpatient (CLI) | payer MEDICARE, SELFPAY ==
[2024-08-09 15:14] VITALS: BMI 29.7
--- OUTSIDE RECORDS SUMMARY | 2025-08-01 06:46 | XMS RPT_ITS | CCD ---
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 dependence Sleep apnea Hypertension Surgical History Hx of cataract extraction History of cardiac catheterization Hx of umbilical hernia repair history skin graft right leg History of arthroscopy of left knee Family History Sister Cancer Diabetes Social History Smoking Status: Never smoker alcohol intake: never substance use type: does not use ROS Const Const: Negative for fatigue, weakness, daytime sleepiness or difficulty sleeping ENT ENT: Negative for dizziness or Nosebleed/epistaxis Cardio Chest Pain: No Palpitations: No Edema: None Resp Respiratory: Negative for SOB with activity, SOB at rest, SOB orthopnea SOB lying down or Cough GI GI: Nega (more content not included)... Normal [facility] 06-22-2025 [facility] Telephone (INTMWS) ----- SUDHEER HERNANDEZ ([id number]) 1945 M Date Time Provider Department 06/22/25 ENMANUEL CARROLL INTJACKELINE During your visit today, we recorded the following information about you: Terri Olivas LPN 06/22/2025 11:40 AM Addendum Rec'd results from [facility]. View External Cardiology - limited chest CT cardiac only [ID [id number]] Maddy Lowe APRN.[employer] 06/25/2025 4:24 PM Addendum Please let him know that the CTA shows coronary artery calcification. Iveth Smiley LPN 06/25/2025 4:54 PM Signed Patient notified of results. PATIENT stated that he does not have a slug press operator at this time. Patient is wanting to know what is the next step? Please review Maddy Lowe APRN.[facility] 06/26/2025 12:17 PM Signed I placed a consult for cardiology, he may want to make an appointment for follow-up and further review of the CT results with cardiology. Schedule if willing. Terri Olivas LPN 06/26/2025 1:01 PM Signed Message left to pt to return call to arrange appts. Terri Olivas LPN 07/02/2025 2:23 PM Signed Please call pt to arrange cardiology consult. Vicky Johansen 07/02/2025 3:21 PM Signed Left message for patient to return call to PCP Team. When patient calls, please schedule cardiology consult. Alicia Christianson 07/03/2025 1:29 PM Signed Patient is scheduled to follow up with slug press operator, Dr. Gamal Campos at [facility]. He states that the CT Calcium results should already be at his office Allergies As of Date: 06/22/2025 (No Known Allergies) Date Reviewed: 04/11/2025 Reviewed by: Anna Varghese MA - Fully Assessed Reason for Visit: Results [95] Primary Visit Diagnosis:Coronary artery calcification seen on CT scan [I25.10] Order(s):CONSULT TO CARDIOLOGY [9004] Order #: [id number]: 1 FUTURE Prescriptions as of 07/03/2025 - glipiZIDE 2.5 mg tablet Take 1 tablet by mouth daily with breakfast. (VA) - COQ10, LIPOSOMAL UBIQUINOL, ORAL Take 1 capsule by mouth once daily. - SITagliptin (ZITUVIO) 100 mg tablet Take 100 mg by mouth once daily. - rosuvastatin (CRESTOR) 10 mg tablet Take 4 tablets by mouth every evening. - ezetimibe (ZETIA) 10 mg tablet Take 1 tablet by mouth once daily. - lisinopril (ZESTRIL) 10 mg tablet Take 1 tablet by mouth once daily. - aspirin, enteric coated (ASPIRIN, ENTERIC COATED) 81 mg EC tablet Take 81 mg by mouth as needed. - alogliptin (NESINA) 25 mg tab Take 1 tablet by mouth every evening. - empagliflozin (JARDIANCE) 25 mg tablet Take 1 tablet by mouth daily with breakfast. - omega-3/dha/epa/fish oil (FISH OIL HIGH POTENCY ORAL) Take 1 capsule by mouth. 2400 mg taking 2 capsules - Ascorbic Acid (VITAMIN C) 100 mg tablet Take 100 mg by mouth once daily. - GARLIC - Lactobacillus acidophilus (PROBIOTIC) 10 billion cell cap Take by mouth. - metFORMIN (GLUCOPHAGE) 1,000 mg tablet Take 1 tablet by mouth twice daily with meals. (VA) - TURMERIC ORAL Take by mouth once daily. - cholecalciferol, vitamin D3, (VITAMIN D3 ORAL) Take 1 tablet by mouth once daily. - ZINC ACETATE ORAL Take 1 tablet by mouth once daily. - vitamin B complex (B COMPLEX 1 ORAL) Take by mouth. - blood sugar diagnostic(ONE TOUCH ULTRA TEST STRIPS) Check blood sugars three times daily or as directed - lancets(ONE TOUCH ULTRASOFT LANCETS) Check blood sugars three times daily or as directed - ONE TOUCH ULTRA SYSTEM KIT Use kit as directed to check blood sugars 3 times daily or as directed - THERAPEUTIC MULTIVITAMIN TAB Take one(1) tablet daily. Meds Comments as of 12/07/2020: December 07, 2020 Denies new medications in the last 30 days. Problem List As Of Date 06/22/2025 Noted Resolved PURE HYPERCHOLESTEROLEM [E78.00] 06/01/2005 Type 2 diabetes mellitus without complication, *06/01/2005 CHOLELITHIASIS NOS [K80.20] 06/01/2005 DIVERTICULOSIS OF COLON W/O BLEED [K57.30] 06/01/2005 OBESITY NOS [E66.9] 06/01/2005 ESOPHAGEAL REFLUX [K21.9] 06/01/2005 Other cardiomyopathies (HCC) [I42.8] 06/01/2005 BENIGN NEOPLASM LG BOWEL [D12.6] 03/08/2006 ABDOMINAL PAIN RLQ [R10.31] 03/08/2006 Chest pain, atypical--probably GI [R07.89] 08/13/2011 Acute gastritis without mention of hemorrhage [*11/26/2011 Daytime sleepiness [R40.0] 02/28/2016 Apnea [R06.81] 02/28/2016 07/08/2016 Non morbid obesity due to excess calories [E66.*02/28/2016 Essential hypertension with goal blood pressure*02/28/2016 Snoring [R06.83] 02/28/2016 VENU (obstructive sleep apnea) [G47.33] 12/17/2016 Uncontrolled type 2 diabetes mellitus with hype*04/16/2021 05/24/2023 Bilateral leg numbness [R20.0] 04/16/2021 Diabetic polyneuropathy associated with type 2 *11/15/2023 Obesity, Class I, BMI 30-34.9 [E66.811] 11/15/2023 Encounter Status:Closed by TERRI OLIVAS on 07/03/25 Normal [facility] Coronary Angiography CTon Coronary Angiography CT [facility] Imaging Services [address] [place] [id number] 06/21/25 1537 MR#: [id number] Acct: [id number] Name: SUDHEER HERNANDEZ Rep #: [id number] : 1945 79 From: Gamal Campos MD PCP: Dr. Enmanuel Carroll MD Status:REG REF Y Location: CT Calcium Scoring Date of Study:: 06/21/25 Indications Indications: Family history, hypertension, hyperlipidemia Coronary Calcium Scoring: High-resolution Computed Tomographic imaging of the chest was performed on [06/21/2025], with particular attention paid to the coronary arteries. Images from the examination were analyzed for the presence and extent of coronary artery calcification , using coronary calcium quantification software. The patient tolerated the procedure well and there were no complications. The results of the coronary calcification analysis are provided below. Findings Coronary Artery Left Main (LM): 0 Left Anterior Descending (LAD): 490 Left Circumflex (LCX): 179 Right Coronary Artery (RCA): 25 Total Agatston Score: 694 Percentile Rankin-75 Calcium Scoring Interpretation: Different methods to categorize the overall amount of coronary plaque. Overall amount CAC SIS Visual of coronary plaque P1 Mild -100 <2 1-2 vessels with mild amount of plaque P2 Moderate 101-300 3-4 1-2 vessels with moderate amount, 3 vessels with mild amount of plaque P3 Severe 301-999 5-7 3 vessels with moderate amount, 1 vessel with severe amount of plaque P4 Extensive >1000 >8 2-3 vessels with severe amount of plaque Calcium Score: Severe: 3 vessels w/moderate amount, 1 vessel w/severe amt of plaque Conclusion: Moderate two-vessel plaque disease and mild one-vessel plaque disease present. 06/21/25 1538 Date Gamal Campos MD Cosigner Signature (if applicable): Date CC: SOFTWARE SYSTEMS ARCHITECT-C Maddy Lowe; Dr. Gamal Campos MD; Dr. Enmanuel Carroll MD Signed Normal [facility] Limited Chest CT Cardiac Onl yon 06-21-[address] Cardiac Only [facility] Imaging Services [address] [place] [address] Cardiac Only MR#: [id number] Acct: [id number] Name: SUDHEER HERNANDEZ Rep #: [id number] : 1945 79 From: Johny munoz MD PCP: Dr. Enmanuel Carroll MD Status: REG REF Study: Limited Chest CT Cardiac Only Date of Exam: Exam# [id number] Ordering Dr: Maddy Lowe NP SOFTWARE SYSTEMS ARCHITECT-C PROCEDURE: LIMITED CHEST CT CARDIAC ONLY 06/21/2025 REASON FOR EXAM: CAD SCREENING TECHNIQUE: Procedure Code: [id number] Modality: CT Procedure: LIMITED CHEST CT CARDIAC ONLY CONTRAST: None One or more dose reduction techniques were used (e.g., Automated exposure control, adjustment of the mA and/or kV according to patient size, use of iterative reconstruction technique). RADIATION DOSE SUMMARY: CTDlvol: 12.19 mGy DLP: 195.04 mGycm COMPARISON: None FINDINGS: Coronary artery calcification. The heart is nonenlarged. Calcification of the aortic arch. Calcified mediastinal and bilateral hilar lymph nodes. Scattered calcified granulomas. CT/Limited Chest CT Cardiac Only IMPRESSION: Coronary artery calcification. Reading Location: [place] [address] CC: DEMI Lowe; Dr. Enmanuel Carroll MD Respiratory Care Specialist: Signed [facility] 05-31-2025 [facility] Telephone (4CQ) ----- SUDHEER HERNANDEZ ([id number]) 1945 M Date Time Provider Department 05/31/25 ENMANUEL CARROLL 4CQ During your visit today, we recorded the following information about you: Juju Vega 05/31/2025 3:33 PM Signed Patient had message on wait list requesting the follow orders from PCP. Pt is requesting order for ultrasound, veins and calcium to be tested please. Please advise patient. Jaye Eugene, ANNE-MARIE 05/31/2025 7:30 PM Signed Perhaps need to call pt and confirm what veins he wants ultrasound on and is he talking about the Calcium CT score measuring calcium buildup in the coronary arteries. Has pt checked with insurance company for coverage on testing? Martina Monahan MA 06/01/2025 9:03 AM Signed Patient is requesting only CT calcium score test patient advised wants to go to [facility] since free JOLYNN Bean Maddy, STOREKEEPER HELPER.[employer]K HOUSE WORKER 06/01/2025 11:45 AM Signed OK, order filed, please process. Martina Monahan MA 06/01/2025 1:46 PM Signed Referral placed and faxed with order Left message for patient he can call [facility] to schedule Martina Monahan MA Allergies As of Date: 05/31/2025 (No Known Allergies) Date Reviewed: 04/11/2025 Reviewed by: Anna Varghese MA - Fully Assessed Reason for Visit: Patient Question [1477] Primary Visit Diagnosis:Encounter for screening for cardiovascular disorders [Z13.6] Order(s):CT CALCIUM SCORING SELF PAY [2690669] Order #: [id number] FUTURE Prescriptions as of 06/01/2025 - glipiZIDE 2.5 mg tablet Take 1 tablet by mouth daily with breakfast. (VA) - COQ10, LIPOSOMAL UBIQUINOL, ORAL Take 1 capsule by mouth once daily. - SITagliptin (ZITUVIO) 100 mg tablet Take 100 mg by mouth once daily. - rosuvastatin (CRESTOR) 10 mg tablet Take 4 tablets by mouth every evening. - ezetimibe (ZETIA) 10 mg tablet Take 1 tablet by mouth once daily. - lisinopril (ZESTRIL) 10 mg tablet Take 1 tablet by mouth once daily. - aspirin, enteric coated (ASPIRIN, ENTERIC COATED) 81 mg EC tablet Take 81 mg by mouth as needed. - alogliptin (NESINA) 25 mg tab Take 1 tablet by mouth every evening. - empagliflozin (JARDIANCE) 25 mg tablet Take 1 tablet by mouth daily with breakfast. - omega-3/dha/epa/fish oil (FISH OIL HIGH POTENCY ORAL) Take 1 capsule by mouth. 2400 mg taking 2 capsules - Ascorbic Acid (VITAMIN C) 100 mg tablet Take 100 mg by mouth once daily. - GARLIC - Lactobacillus acidophilus (PROBIOTIC) 10 billion cell cap Take by mouth. - metFORMIN (GLUCOPHAGE) 1,000 mg tablet Take 1 tablet by mouth twice daily with meals. (VA) - TURMERIC ORAL Take by mouth once daily. - cholecalciferol, vitamin D3, (VITAMIN D3 ORAL) Take 1 tablet by mouth once daily. - ZINC ACETATE ORAL Take 1 tablet by mouth once daily. - vitamin B complex (B COMPLEX 1 ORAL) Take by mouth. - blood sugar diagnostic(ONE TOUCH ULTRA TEST STRIPS) Check blood sugars three times daily or as directed - lancets(ONE TOUCH ULTRASOFT LANCETS) Check blood sugars three times daily or as directed - ONE TOUCH ULTRA SYSTEM KIT Use kit as directed to check blood sugars 3 times daily or as directed - THERAPEUTIC MULTIVITAMIN TAB Take one(1) tablet daily. Meds Comments as of 12/07/2020: December 07, 2020 Denies new medications in the last 30 days. Problem List As Of Date 05/31/2025 Noted Resolved PURE HYPERCHOLESTEROLEM [E78.00] 06/01/2005 Type 2 diabetes mellitus without complication, *06/01/2005 CHOLELITHIASIS NOS [K80.20] 06/01/2005 DIVERTICULOSIS OF COLON W/O BLEED [K57.30] 06/01/2005 OBESITY NOS [E66.9] 06/01/2005 ESOPHAGEAL REFLUX [K21.9] 06/01/2005 Other cardiomyopathies (HCC) [I42.8] 06/01/2005 BENIGN NEOPLASM LG BOWEL [D12.6] 03/08/2006 ABDOMINAL PAIN RLQ [R10.31] 03/08/2006 Chest pain, atypical--probably GI [R07.89] 08/13/2011 Acute gastritis without mention of hemorrhage [*11/26/2011 Daytime sleepiness [R40.0] 02/28/2016 Apnea [R06.81] 02/28/2016 07/08/2016 Non morbid obesity due to excess calories [E66.*02/28/2016 Essential hypertension with goal blood pressure*02/28/2016 Snoring [R06.83] 02/28/2016 VENU (obstructive sleep apnea) [G47.33] 12/17/2016 Uncontrolled type 2 diabetes mellitus with hype*04/16/2021 05/24/2023 Bilateral leg numbness [R20.0] 04/16/2021 Diabetic polyneuropathy associated with type 2 *11/15/2023 Obesity, Class I, BMI 30-34.9 [E66.811] 11/15/2023 Encounter Status:Closed by MARTINA MONAHAN on 06/01/25 Normal [facility] PSA,Total- Diagnosticon 04-03 PSA, DIAGNOSTIC 12.30 ng/mL High 0.00-4.00 [facility] Comment on above: Result Comment: This test was performed using the [employer] tPSA method. Measured values of a patient??sample can vary depending on the testing procedure used. PSA values determined on patient samples by different testing procedures cannot be used interchangeably. If there is a change in PSA assays while monitoring therapy, sequential testing should be performed to confirm baseline values. Performed By: #### L [id number] #### [facility] [address] [place], [address] CNOVon 04-11-2025 CNOV Office Visit (INTMWS ) ----- SUDHEER HERNANDEZ ([id number]) 1945 M Date Time Provider Department 04/11/25 4:40 PM ENMANUEL CARROLL INTWS During your visit today, we recorded the following information about you: Pulse Blood pressure Weight 77/minute 108/62 97.3 kg Enmanuel Carroll MD 05/04/2025 12:43 AM Signed This note was created using [employer]. Subjective Sudheer Hernandez is a 79 year old male. SUBJECTIVE: Sudheer Hernandez is a 79-year-old male with a history of DM, presenting for a Medicare Annual Wellness Visit. Sduheer reports his health as "very good." He exercises approximately 20 minutes per session, 3 days per week, and spends an additional 3 days per week working in his garden. 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 He reports no changes in family history. Sudheer reports balance issues secondary to neuropathy in his feet, which necessitates caution when standing with his eyes closed. He denies any issues with bowel movements and reports improvement in bladder function, stating he usually wakes up only once at 0500 to urinate. Sudheer is under the care of multiple specialists, including a urologist, knitted garment finisher, artificial foliage arranger, and primary care physician at the OR. He has a history of BPH and is monitored by his urologist, Dr. Mathews, every 6 months. He had an eye exam in late October and has a follow-up scheduled for next October. He also sees a artificial foliage arranger every 3-4 months for foot exams. He was previously under the care of a diabetic pharmacist, Dr. Khalil, but was released from care due to improved glycemic control. He continues to see his primary care physician, Dr. Roger, at the OR every 6 months. Sudheer is currently on a medication regimen for DM that includes metformin 1,000 mg BID, Jardiance 25 mg daily, and sitagliptin 25 mg daily. He was previously on glipizide 10 mg daily, which was reduced to 2.5 mg daily due to episodes of hypoglycemia. He inquires about the possibility of reducing his metformin dosage. He also reports a reduction in sugar intake. His most recent HbA1c was 6.9%, down from 7% in January and 7.9% in May of the previous year. He expresses a desire to lower his HbA1c further. PAST MEDICAL HISTORY Diagnosis Date Abdominal pain, right lower quadrant Benign neoplasm of colon Calculus of gallbladder without mention of cholecystitis or obstruction 06/01/2005 Diaphragmatic hernia without mention of obstruction or gangrene Diverticulosis of colon (without mention of hemorrhage) 06/01/2005 Diverticulosis of colon (without mention of hemorrhage) Esophageal reflux 06/01/2005 Obesity, unspecified 06/01/2005 Other primary cardiomyopathies 06/01/2005 Other specified visual disturbances Pure hypercholesterolemia 06/01/2005 Snoring Type II or unspecified type diabetes mellitus without mention of complication, not stated as uncontrolled 06/01/2005 Unspecified essential hypertension 06/01/2005 Current Outpatient Medications Medication Sig COQ10, LIPOSOMAL UBIQUINOL, ORAL Take 1 capsule by mouth once daily. ezetimibe (ZETIA) 10 mg tablet Take 1 tablet by mouth once daily. lisinopril (ZESTRIL) 10 mg tablet Take 1 tablet by mouth once daily. aspirin, enteric coated (ASPIRIN, ENTERIC COATED) 81 mg EC tablet Take 81 mg by mouth as needed. empagliflozin (JARDIANCE) 25 mg tablet Take 1 tablet by mouth daily with breakfast. omega-3/dha/epa/fish oil (FISH OIL HIGH POTENCY ORAL) Take 1 capsule by mouth. 2400 mg taking 2 capsules Ascorbic Acid (VITAMIN C) 100 mg tablet Take 100 mg by mouth once daily. metFORMIN (GLUCOPHAGE) 1,000 mg tablet Take 1 tablet by mouth twice daily with meals. (VA) TURMERIC ORAL Take by mouth once daily. cholecalciferol, vitamin D3, (VITAMIN D3 ORAL) Take 1 tablet by mouth once daily. ZINC ACETATE ORAL Take 1 tablet by mouth once daily. vitamin B complex (B COMPLEX 1 ORAL) Take by mouth. blood sugar diagnostic(ONE TOUCH ULTRA TEST STRIPS) Check blood sugars three times daily or as directed lancets(ONE TOUCH ULTRASOFT LANCETS) Check blood sugars three times daily or as directed ONE TOUCH ULTRA SYSTEM KIT Use kit as directed to check blood sugars 3 times daily or as directed THERAPEUTIC MULTIVITAMIN TAB Take one(1) tablet daily. glipiZIDE 2.5 mg tablet Take 1 tablet by mouth daily with breakfast. (VA) SITagliptin (ZITUVIO) 100 mg tablet Take 100 mg by mouth once daily. (Patient not taking: Reported on 04/11/2025) rosuvastatin (CRESTOR) 10 mg tablet Take 4 tablets by mouth every evening. (Patient not taking: Reported on 04/11/2025) alogliptin (NESINA) 25 mg tab Take 1 tablet by mouth every evening. (Patient not taking: Reported on 05/09/2024) GARLIC (Patient not taking: Reported on 05/30/2024) Lactobacillus acidophilus (PROBIOTIC) 10 billion cell cap Take by mouth. (Patient not taking: Report (more content not included)... Normal [facility] ALBUMIN/CREATININE RATIO, UR INEon 04-04-2025 Albumin DL <= 20 mg/L (U) [Mass/Vol] mg/dL Normal [facility] Comment on above: Order Comment: Speci men Type: URINE SPECIMENOrdering Facility: [facility] Address: [address] [place] [id number] Performed By: #### U ACR ####[facility] [id number] [place] [address] [place] Albumin/Creatinine (U) [Mass ratio] <20 Normal <30 [facility] Comment on above: Order Comment: Speci men Type: URINE SPECIMENOrdering Facility: [facility] Address: [address] [place] [address] Result Comment: Adul t Male and Female Nephrotic Criteria: <30 mg/g is considered normal to mildly increased 30-300 mg/g is considered moderately increased >300 mg/g is considered severely increased KDIGO. (2013). KDIGO 2012 Clinical Practice Guideline for the Evaluation and Management of Chronic Kidney Disease. Official Journal of the International Society of Nephrology, 3(1), 1-150. Performed By: #### U ACR ####[facility] LABIA [id number] [place] [address] [place] Creatinine (U) [Mass/Vol] 59.1 mg/dL Normal 20.0-300.0 [facility] Comment on above: Order Comment: Speci men Type: URINE SPECIMENOrdering Facility: [facility] Address: [address] [place] [address] Performed By: #### U ACR ####[facility] LABIA [id number] [place] [address] [place] HbA1c (Bld)on 04-04-2025 Average glucose Estimated from glycated hemoglobin (Bld) [Mass/Vol] 151 mg/dL Normal [facility] Comment on above: Order Comment: Speci men Type: BLOOD SPECIMENOrdering Facility: [facility] Address: [address] [place] [address] Result Comment: eAG: (Estimated average glucose) is a calculated value from HgbA1c and is commercial sales representative of the average blood glucose level in the last 2-3 month period. Performed By: #### 5 5454-3 ####[facility] [id number] [place] [address] [place] HbA1c (Bld) [Mass fraction] 6.9 % High 4.3-5.6 [facility] Comment on above: Order Comment: Speci men Type: BLOOD SPECIMENOrdering Facility: [facility] Address: [address] [place] [address] Result Comment: Amer ican Diabetes Association guidelines indicate that patients with HgbA1c in the range 5.7-6.4% are at increased risk for development of diabetes, and intervention by lifestyle modification may be beneficial. HgbA1c greater or equal to 6.5% is considered diagnostic of diabetes. Performed By: #### 5 5454-3 ####[facility] LABCL[facility] [id number] [place]ITZ [place]SE[place] [id number] [place] [address] [place] Pelvis W/WO Contraston 10-17 Pelvis W/WO Contrast [facility] Imaging Services [address] [place], [place] [id number] Pelvis W/WO Contrast MR#: [id number] Acct: [id number] Name: SUDHEER HERNANDEZ Rep #: [id number] : 1945 M 78 From: Max quinn MD PCP: Dr. Enmanuel Carroll MD Status: [facility] CLI Study: Pelvis W/WO Contrast Date of Exam: 10/17/24 Exam# [id number] Ordering Dr: Heriberto Barragan MD [id number] STUDY: MR PROSTATE GLAND/ PELVIS WITH T WITHOUT CONTRAST REASON FOR EXAM: Male, 78 years old. elevated PSA TECHNIQUE: Standardized fat and water weighted pulse sequences were obtained in all 3 orthogonal planes, pre-and post contrast administration. IV 19cc clariscan was administered for the contrast portion of the examination. COMPARISON: CT of abdomen and pelvis dated July 29, 2017. FINDINGS: Prostate gland volume/size: 6.44 x 3.97 x 4.93 cm which is mildly enlarged Anterior fibromuscular stroma: Normal. Peripheral zone: Normal bilaterally with bright signal and no nodules or masses or enhancing lesions. Central zone: Diffusely heterogeneous and nodular with low signal hyperplastic nodules intervening cysts and fibrotic scarring bilaterally. Enhancement is also diffuse and symmetric. No positive diffusion weighted nodules or lesions are seen either on the right or left that would indicate malignancy. Transitional zone: Diffusely heterogeneous and nodular with low signal hyperplastic nodules intervening cysts and fibrotic scarring bilaterally. Enhancement is also diffuse and symmetric. No positive diffusion weighted nodules or lesions are seen either on the right or left that would indicate malignancy. Prostate capsule: Intact: Seminal vesicles: Normal fluid signal bilaterally. Pelvic sidewall lymphadenopathy: None demonstrated. Bony structures: No lytic or blastic or aggressive process. No demonstrated enhancing lesions. No bone marrow edema or infiltrative marrow replacement process is seen. No visualized pathologic fractures. Bladder: No demonstrated masses or filling defects/stones. Normal urinary bladder. Normal visualized small intestine. There are multiple colonic diverticula of the sigmoid colon consistent with chronic diverticulosis. Vessels: No significant or large aneurysm is demonstrated. Normal abdominal wall. MRI/Pelvis W/WO Contrast IMPRESSION: 1. BPH without evidence of a malignant neoplasm 2. PI-RADS 1: very low (clinically significant cancer is highly unlikely to be present) 3. Targeted image guided biopsy of nodules or area of interest can be performed for definitive pathologic assessment of the tissue and diagnosis 4. Prostate PET/CT exam can also be performed to determine if there is viable malignant neoplasm in the prostate gland. Prostate MRI reference: 15-30% of prostate cancers can go undetected on Prostate MRI. Monitoring and assessment by Primary physician, Urology, and oncology service recommended and treated clnically. (Cancers (Basel). 2022Sep 15;15(56):9302. doi: [id number] Prostate Cancers Invisible on Multiparametric MRI: Pathologic Features in Correlation with Whole-Mount Prostatectomy Roosevelt Johns 1,2,*, Moises Lundy 3, Obey Kumar 1,2, Erika Go 1,2, Fabien Rahman 4, Charlie Sanders 5, Arnaud Armenta 6, Mickey Driscoll 1,2, Laurence Ayoub 1,2) Reference information: Normal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 MD Work Phone: [facility] Start: 04-11-2025 End: 04-11-2025 Patient encounter procedure Enmanuel Carroll MD Work Phone: [facility] Comment on above: Population Health Na vigation Outreach ([facility] [place] ) Medicare annual well ness visit, subsequent (Primary Dx); Diabetic polyneuropathy associated with type 2 diabetes mellitus (HCC); Other cardiomyopathies (HCC); Encounter for screening examination for other mental health and behavioral disorders; Screening for depression; Essential hypertension with goal blood pressure less than 130/80; Benign prostatic hyperplasia without urinary obstruction; Other diabetic neurological complication associated with type 2 diabetes mellitus (HCC) Start: 04-04-2025 End: 04-04-2025 ambulatory ENMANUEL CARROLL Facility:[facility] Start: 03-12-2025 End: 03-12-2025 ambulatory Hector Bryan MA [facility] Start: 03-12-2025 End: 03-12-2025 Patient encounter procedure Hector Bryan MA [facility] [place] Comment on above: Population Health Na vigation Outreach ([facility] Start: 12-18-2024 End: 12-18-2024 ambulatory Imelda Teague MA [facility] Start: 12-18-2024 End: 12-18-2024 Patient encounter procedure Imelda Teague MA [facility] [place] Comment on above: Population Health Na vigation Outreach (Human High Risk Attempt 2) Start: 11-27-2024 End: 11-27-2024 ambulatory Imelda Teague MA [facility] Start: 11-27-2024 End: 11-27-2024 Patient encounter procedure Imelda Teague MA [facility] Start: 10-17-2024 End: 10-17-2024 ambulatory Enmanuel Carroll Facility:[facility] Start: 09-07-2024 End: 09-07-2024 ambulatory Heriberto Barragan Facility:[facility] Start: 08-17-2024 End: 08-17-2024 ambulatory Ibrahima HERNANDEZ Facility:[facility] Start: 08-09-2024 End: 08-09-2024 ambulatory Enmanuel Carroll Facility:[facility] Start: 05-30-2024 End: 05-30-2024 Office outpatient visit 10 minutes Enmanuel Carroll MD Work Phone: [facility] [place] Comment on above: Elevated PSA, betwee n 10 and less than 20 ng/ml (Primary Dx) Start: 05-30-2024 End: 05-30-2024 Telephone encounter Enmanuel Carroll MD Work Phone: [facility] [place] Comment on above: Results, Lab Start: 05-29-2024 End: 05-29-2024 Telephone encounter Enmanuel Carroll MD Work Phone: [facility] [place] Start: 05-09-2024 End: 05-09-2024 Patient encounter procedure Enmanuel Carroll MD Work Phone: [facility] [place] Comment on above: Medicare annual well ness visit, subsequent (Primary Dx); Diabetic polyneuropathy associated with type 2 diabetes mellitus (HCC); Essential hypertension with goal blood pressure less than 130/80; Mixed hyperlipidemia; Anemia, unspecified type; Screening for depression; Encounter for screening examination for other mental health and behavioral disorders; Encounter for immunization Start: 02-25-2024 End: 02-25-2024 Patient encounter procedure Adela Arellano APRN.CONVENTIONS RESERVATIONIST Work Phone: [facility] Comment on above: URI, acute (Primary Dx) Start: 01-18-2024 End: 01-18-2024 Patient encounter procedure Talon Ruiz MD Work Phone: General Surgery Comment on above: Itching (Primary Dx) ; Rash Start: 11-15-2023 End: 11-15-2023 Patient encounter procedure Susannah Nickerson APRN.CONVENTIONS RESERVATIONIST Work Phone: [facility] [place] Comment on above: Mixed hyperlipidemia (Primary Dx); Diabetic polyneuropathy associated with type 2 diabetes mellitus (HCC); Essential hypertension with goal blood pressure less than 130/80; VENU (obstructive sleep apnea); Obesity, Class I, BMI 30-34.9 Start: 06-15-2023 End: 06-15-2023 Nursing evaluation of patient and report Nurse Giovanna [facility] Work Phone: General Surgery Comment on above: Visit for suture rem oval (Primary Dx) Start: 06-08-2023 End: 06-08-2023 Patient encounter procedure Talon Ruiz MD Work Phone: General Surgery Comment on above: Sebaceous cyst (Prim jaquan Dx); Seborrheic keratosis Start: 04-20-2023 End: 04-20-2023 Office outpatient visit 25 minutes Enmanuel Carroll MD Work Phone: [facility] [place] Comment on above: Pure hypercholestero lemia (Primary Dx); Type 2 diabetes mellitus without complication, without long-term current use of insulin (HCC); Essential hypertension with goal blood pressure less than 130/80; Sebaceous cysts; Seborrheic keratosis Start: 03-24-2023 ambulatory [facility] [place] Comment on above: Population Health Na vigation Outreach ([employer] [facility] ) Start: 01-01-2023 ambulatory ENMANUEL CARROLL Facilit y:[facility] Start: 01-01-2023 End: 01-01-2023 Subsequent hospital visit by physician [facility] Comment on above: Acute pain of right thigh [M79.651] Start: 01-01-2023 End: 01-01-2023 Patient encounter procedure Jennifer Armijo RICHARD Work Phone: [facility] Comment on above: Acute pain of right thigh (Primary Dx) Start: 11-02-2022 Telephone encounter Enmanuel mcrae MD Work Phone: [facility] [place] Comment on above: Nurse Triage Call; P enile Problem Start: 07-15-2022 ambulatory [facility] Derick Anand MA [employer] [facility] [place] Comment on above: Population Health Na vigation Outreach ([employer] [facility] /) Start: 04-03-2022 Telephone encounter Enmanuel mcrae MD Work Phone: [facility] [place] Comment on above: Patient Update; Medi cation Request Procedures Date Procedure Procedure Detail Performing Clinician Start: 06-21-2025 CT angiography of co ronary arteries Dr. Enmanuel Carroll MD Work Phone: Start: 04-18-2025 Assay of prostate sp ecific antigen total Dr. Enmanuel Carroll MD Work Phone: Comment on above: This test was perfor med using the [employer] tPSA method. Measured values of a patient sample can vary depending on the testing procedure used. PSA values determined on patient samples by different testing procedures cannot be used interchangeably. If there is a change in PSA assays while monitoring therapy, sequential testing should be performed to confirm baseline values. Start: 04-18-2025 Prostate specific an tigen measurement Dr. Enmanuel Carroll MD Work Phone: Comment on above: This test was perfor med using the [employer] tPSA method. Measured values of a patient sample can vary depending on the testing procedure used. PSA values determined on patient samples by different testing procedures cannot be used interchangeably. If there is a change in PSA assays while monitoring therapy, sequential testing should be performed to confirm baseline values. Start: 04-11-2025 Adult depression scr eening assessment Enmanuel Carroll MD Work Phone: Start: 05-09-2024 Adult depression scr eening assessment Enmanuel Carroll MD Work Phone: Start: 06-08-2023 End: 06-08-2023 SURGICAL PATHOLOGY Talon Ruiz MD Work Phone: Start: 01-01-2023 Dup-scan xtr veins unilateral/limited study Jennifer Armijo APRN.CONVENTIONS RESERVATIONIST Work Phone: Start: 10-06-2021 Adult depression scr eening assessment Enmanuel Carroll MD Work Phone: Start: 08-31-2016 Colonoscopy Enmanuel miarnda MD Work Phone: Plan of Treatment Date Care Activity Detail Author Start: 10-11-2027 Urine microalbumin profile [facility] Start: 08-31-2026 Colonoscopy COLONOSCOPY [facility] Start: 08-31-2026 COLORECTAL CANCER SCREENING COLORECTAL CANCER SCREENING [facility] Start: 04-19-2026 End: 04-19-2026 Patient encounter procedure 04/19/2026 3:40 PM EDT Office Visit [facility] [place] [address] [facility] [place] [address] Enmanuel Carroll MD [address] [facility] [place] [address] Wellness [facility] [place] Comment on above: Wellness Start: 04-11-2026 Annual PCP Team Chronic Disease Visit Annual PCP Team Chronic Disease Visit [facility] Start: 04-11-2026 Anxiety Screening Anxiety Screening [facility] Start: 04-11-2026 Depression Screening Depression Screening [facility] Start: 04-11-2026 Diabetic foot examination Diabetic Foot Exam [facility] Start: 04-11-2026 RSV Vaccine (1 - 1-dose 75+ series) RSV Vaccine (1 - 1-dose 75+ series) [facility] Comment on above: Postponed from 2021 (Declined at t his time) Start: 04-04-2026 Hepatitis B screening Urine Albumin:Creatinine Ratio [facility] Start: 11-02-2025 Glaucoma screening Dilated Retinal Exam [facility] Start: 11-02-2025 End: 11-02-2025 Patient encounter procedure 11/02/2025 9:40 AM EST Office Visit [facility] [place] [address] [place] [address] Enmanuel Carroll MD [address] [facility] [place] [address] 6 month follow up [facility] [place] Comment on above: 6 month follow up Start: 10-05-2025 Hemoglobin A1c measurement HbA1C [facility] Start: 07-20-2025 Registered Referred Registered [facility] Work Phone: Start: 07-12-2025 End: 07-12-2025 Evaluation of diagnostic study results [facility] Start: 07-12-2025 Radionuclide imaging of perfusion of myocardium under exercise stress [facility] Start: 06-04-2025 Influenza vaccination [facility] Start: 05-30-2025 Annual PCP Team Chronic Disease Visit Annual PCP Team Chronic Disease Visit [facility] Start: 05-15-2025 End: 05-15-2025 Patient encounter procedure [facility] [place] Comment on above: Medicare Wellness Medicare Wellness/HC C Gap Closure Start: 05-09-2025 Annual PCP Team Chronic Disease Visit Annual PCP Team Chronic Disease Visit [facility] Start: 05-09-2025 Anxiety Screening Anxiety Screening [facility] Start: 05-09-2025 BP Controlled (<130/80) BP Controlled (<130/80) [facility] Start: 05-09-2025 Depression Screening Depression Screening [facility] Start: 05-09-2025 Hepatitis C screening Hepatitis C Screening [facility] Comment on above: Postponed from 1964 (Declined at t his time) Start: 04-11-2025 End: 04-11-2025 Patient encounter procedure 04/11/2025 4:40 PM EDT Office Visit [facility] [place] [address] [facility] [place] [address] Enmanuel Carroll MD [address] [place] [address] Follow up - HCC Gap Closure [facility] Comment on above: Follow up - HCC Gap Closure Start: 01-17-2025 BP Controlled (<130/80) BP Controlled (<130/80) [facility] Start: 11-21-2024 End: 11-21-2024 Patient encounter procedure 11/21/2024 8:20 AM EST Office Visit [facility] [place] [address] [facility] [place] [address] Enmanuel Carroll MD [address] [facility] [place] [address] 6 month follow up [facility] [place] Comment on above: 6 month follow up Start: 11-15-2024 Annual PCP Team Chronic Disease Visit Annual PCP Team Chronic Disease Visit [facility] Start: 11-15-2024 BP Controlled (<130/80) BP Controlled (<130/80) [facility] Start: 11-15-2024 Hepatitis B surface antibody level LDL Cholesterol [facility] Start: 10-04-2024 Advance Directive Discussion Advance Directive Discussion [facility] Start: 06-04-2024 [facility] Start: 05-30-2024 End: 05-30-2024 Patient encounter procedure 05/30/2024 2:20 PM EDT Office Visit [facility] [place] [address] [place] [address] Enmanuel Carroll MD [address] [place] [address] elevated PSA [facility] [place] Comment on above: elevated PSA Start: 05-15-2024 Hemoglobin A1c measurement HbA1C [facility] Start: 05-09-2024 End: 05-09-2024 Patient encounter procedure 05/09/2024 10:00 AM EDT Office Visit [facility] [place] [address] [place] [address] Susannah Nickerson APRN.CONVENTIONS RESERVATIONIST [address] [place], [place] [address] 6 mo follow up [facility] [place] Comment on above: 6 mo follow up Start: 04-27-2024 BP CONTROLLED (<130/80) BP CONTROLLED (<130/80) [facility] Start: 04-20-2024 ANNUAL PCP TEAM CHRONIC DISEASE VISIT ANNUAL PCP TEAM CHRONIC DISEASE VISIT [facility] Start: 04-20-2024 HEPATITIS C SCREENING HEPATITIS C SCREENING [facility] Comment on above: Postponed from 1964 (Declined at t his time) Start: 04-20-2024 Hepatitis C screening Hepatitis C Screening [facility] Comment on above: Postponed from 1964 (Declined at t his time) Start: 04-12-2024 Hepatitis B surface antibody level LDL CHOLESTEROL [facility] Start: 02-25-2024 End: 03-10-2024 COVID & INFLUENZA A/B & RSV NAAT, ROUTINE [facility] Work Phone: Comment on above: Expected: 02/25/2024, Expires: Start: 01-06-2024 Hepatitis B screening URINE ALBUMIN:CREATININE RATIO [facility] Start: 01-02-2024 BP CONTROLLED (<130/80) BP CONTROLLED (<130/80) [facility] Start: 10-21-2023 3 comp foot exam completed DIABETIC FOOT EXAM [facility] Comment on above: Postponed from 05/09/2021 (Declined at t his time) Start: 10-21-2023 End: 12-21-2023 CBC panel - Blood by Automated count CBC Lab Routine Essential hypertension with goal blood pressure less than 130/80 Expected: 10/21/2023 (Approximate), Expires: 12/21/2023 [facility] Work Phone: Comment on above: Expected: 10/21/2023 (Approximate), Expi res: 12/21/2023 Start: 10-21-2023 End: 12-21-2023 Comprehensive metabolic 2000 panel - Serum or Plasma COMP METABOLIC PANEL Lab Routine Type 2 diabetes mellitus without complication, without long-term current use of insulin (HCC) Essential hypertension with goal blood pressure less than 130/80 Expected: 10/21/2023 (Approximate), Expires: 12/21/2023 [facility] Work Phone: Comment on above: Expected: 10/21/2023 (Approximate), Expi res: 12/21/2023 Start: 10-21-2023 End: 12-21-2023 Hemoglobin A1c in Blood HGB A1C Lab Routine Type 2 diabetes mellitus without complication, without long-term current use of insulin (HCC) Expected: 10/21/2023 (Approximate), Expires: 12/21/2023 [facility] Work Phone: Comment on above: Expected: 10/21/2023 (Approximate), Expi res: 12/21/2023 Start: 10-21-2023 End: 12-21-2023 Lipid 1996 panel - Serum or Plasma LIPID PANEL BASIC Lab Routine Pure hypercholesterolemia Expected: 10/21/2023 (Approximate), Expires: 12/21/2023 [facility] Work Phone: Comment on above: Expected: 10/21/2023 (Approximate), Expi res: 12/21/2023 Start: 10-13-2023 Hemoglobin A1c/Hemoglobin.total in Blood HBA1C [facility] Start: 10-04-2023 Behavioral Health Screening Behavioral Health Screening [facility] Start: 10-03-2023 DEPRESSION ASSESSMENT DEPRESSION ASSESSMENT [facility] Comment on above: Postponed from 10/04/2022 (Declined at t his time) Start: 09-09-2023 ANNUAL PCP TEAM CHRONIC DISEASE VISIT ANNUAL PCP TEAM CHRONIC DISEASE VISIT [facility] Start: 09-09-2023 BP CONTROLLED (<130/80) BP CONTROLLED (<130/80) [facility] Start: 09-09-2023 COVID-19 VACCINE (3 - Booster for Moderna series) COVID-19 VACCINE (3 - Booster for Moderna series) [facility] Comment on above: Postponed from 02/24/2021 (Declined at t his time) Start: 09-09-2023 COVID-19 VACCINE (3 - Moderna series) COVID-19 VACCINE (3 - Moderna series) [facility] Comment on above: Postponed from 02/24/2021 (Declined at t his time) Start: 09-09-2023 PNEUMOCOCCAL: 65+ (2 - PPSV23 if available, else PCV20) PNEUMOCOCCAL: 65+ (2 - PPSV23 if available, else PCV20) [facility] Comment on above: Postponed from 06/06/2018 (Declined at t his time) Start: 09-04-2023 Hepatitis B screening URINE ALBUMIN:CREATININE RATIO [facility] Start: 09-04-2023 Hepatitis B surface antibody level LDL CHOLESTEROL [facility] Start: 07-21-2023 End: 09-20-2023 Lipid 1996 panel - Serum or Plasma LIPID PANEL BASIC Lab Routine Pure hypercholesterolemia Expected: 07/21/2023 (Approximate), Expires: 09/20/2023 [facility] Work Phone: Comment on above: Expected: 07/21/2023 (Approximate), Expi res: 09/20/2023 Start: 06-04-2023 Covid-19 Vaccine () Covid-19 Vaccine () [facility] Start: 06-04-2023 Influenza vaccination [facility] Start: 03-05-2023 Hemoglobin A1c/Hemoglobin.total in Blood HBA1C [facility] Start: 10-06-2022 Adult depression screening assessment DEPRESSION SCREENING [facility] Start: 10-06-2022 ANNUAL PCP TEAM CHRONIC DISEASE VISIT ANNUAL PCP TEAM CHRONIC DISEASE VISIT [facility] Start: 10-06-2022 BP CONTROLLED (<130/80) BP CONTROLLED (<130/80) [facility] Start: 10-04-2022 ADVANCE DIRECTIVE DISCUSSION ADVANCE DIRECTIVE DISCUSSION [facility] Start: 01-01-2023 DEPRESSION ASSESSMENT DEPRESSION ASSESSMENT [facility] Start: 09-22-2022 Glaucoma screening Dilated Retinal Exam [facility] Start: 09-22-2022 Hepatitis C antibody, confirmatory test DILATED RETINAL EXAM [facility] Start: 06-04-2022 Influenza vaccination INFLUENZA (#1) [facility] Start: 04-16-2022 HEPATITIS C SCREENING HEPATITIS C SCREENING [facility] Comment on above: Postponed from 1964 (Declined at t his time) Start: 01-04-2022 Hemoglobin A1c/Hemoglobin.total in Blood HBA1C [facility] Start: 12-02-2021 Hepatitis B screening URINE ALBUMIN:CREATININE RATIO [facility] Start: 2021 RSV Vaccine (1 - 1-dose 75+ series) RSV Vaccine (1 - 1-dose 75+ series) [facility] Start: 10-04-2021 ADVANCE DIRECTIVE DISCUSSION ADVANCE DIRECTIVE DISCUSSION [facility] Start: 10-04-2021 DEPRESSION ASSESSMENT DEPRESSION ASSESSMENT [facility] Start: 08-28-2021 Hepatitis B surface antibody level LDL CHOLESTEROL [facility] Start: 06-01-2021 COVID-19 VACCINE (3 - Booster for Moderna series) COVID-19 VACCINE (3 - Booster for Moderna series) [facility] Start: 05-09-2021 3 comp foot exam completed DIABETIC FOOT EXAM [facility] Start: 05-09-2021 Diabetic foot examination Diabetic Foot Exam [facility] Start: 02-24-2021 COVID-19 VACCINE (3 - Booster for Moderna series) COVID-19 VACCINE (3 - Booster for Moderna series) [facility] Start: 06-24-2019 BP Controlled (<130/80) BP Controlled (<130/80) [facility] Start: 04-11-2019 PNEUMOCOCCAL: 65+ (2 - PPSV23 if available, else PCV20) PNEUMOCOCCAL: 65+ (2 - PPSV23 if available, else PCV20) [facility] Start: 04-11-2019 PNEUMOCOCCAL: 65+ (2 - PPSV23 or PCV20) PNEUMOCOCCAL: 65+ (2 - PPSV23 or PCV20) [facility] Start: 2006 RSV Vaccine (1 - 1-dose 60+ series) RSV Vaccine (1 - 1-dose 60+ series) [facility] Start: 1991 COLOGUARD (FIT-DNA) COLOGUARD (FIT-DNA) [facility] Start: [address] COLONOGRAPHY [facility] Start: 1991 FECAL OCCULT BLOOD FECAL OCCULT BLOOD [facility] Start: 1991 SIGMOIDOSCOPY SIGMOIDOSCOPY [facility] Start: 1964 HEPATITIS C SCREENING HEPATITIS C SCREENING [facility] Start: 1964 Hepatitis C screening Hepatitis C Screening [facility] End: 07-01-2026 CT Heart and Coronary arteries for calcium scoring WO contrast CT CALCIUM SCORING SELF PAY Radiology Routine Encounter for screening for cardiovascular disorders 1 Occurrences starting 06/01/2025 until 07/01/2026 [facility] Work Phone: Comment on above: 1 Occurrences starting 06/01/2025 until 07/01/2026 [facility] Immunizations Immunization Date Immunization Notes Care Provider [facility] 08-01-2024 influenza virus vacc ine, unspecified formulation Enmanuel Carroll MD Work Phone: [facility] 07-13-2023 influenza (HD-IIV4) vaccine, age 65+ yr, high dose, quadrivalent, PF (FLUZONE HIGH-DOSE) Susannah Nickerson STOREKEEPER HELPER.CONVENTIONS RESERVATIONIST Work Phone: [facility] Work Phone: 07-13-2023 influenza virus vacc ine, unspecified formulation Enmanuel Carroll MD Work Phone: [facility] 08-19-2022 influenza, injectabl e, quadrivalent, preservative free Dr. Enmanuel Carroll MD Work Phone: [facility] 08-19-2022 influenza, seasonal, injectable Enmanuel Carroll MD Work Phone: [facility] 08-19-2022 influenza virus vacc ine, unspecified formulation Nurse Wstr Work Phone: [facility] 08-04-2022 influenza (aIIV4) vaccine, age 65+ yr, quadrivalent, PF (FLUAD QUAD) Susannah Nickerson APRN.CONVENTIONS RESERVATIONIST Work Phone: [facility] Work Phone: 02-13-2022 pneumococcal polysaccharide vaccine, 23 valent Enmanuel Carroll MD Work Phone: [facility] 08-21-2021 influenza (aIIV4) vaccine, age 65+ yr, quadrivalent, PF (FLUAD QUADRIVALENT) Enmanuel Carroll MD Work Phone: [facility] 12-30-2020 COVID-19 vaccine, fu ll dose (MODERNA) Enmanuel Carroll MD Work Phone: [facility] Work Phone: 12-02-2020 COVID-19 vaccine, fu ll dose (MODERNA) Enmanuel Carroll MD Work Phone: [facility] Work Phone: 08-13-2020 influenza, high-dose , quadrivalent vaccine (FLUZONE HIGH DOSE QUADRIVALENT) Enmanuel Carroll MD Work Phone: [facility] Work Phone: 11-13-2019 influenza, injectabl e, quadrivalent, preservative free Enmanuel Carroll MD Work Phone: [facility] Work Phone: 11-13-2019 zoster vaccine recombinant Enmanuel Carroll MD Work Phone: [facility] Work Phone: 08-16-2019 influenza, injectabl e, quadrivalent, preservative free Dr. Enmanuel Carroll MD Work Phone: [facility] 08-16-2019 influenza, seasonal, injectable, preservative free Enmanuel Carroll MD Work Phone: [facility] Work Phone: 05-19-2019 zoster vaccine recombinant Enmanuel Carroll MD Work Phone: [facility] 08-03-2018 influenza, injectabl e, quadrivalent, preservative free Dr. Enmanuel Carroll MD Work Phone: [facility] 08-03-2018 influenza, seasonal, injectable, preservative free Enmanuel Carroll MD Work Phone: [facility] Work Phone: 07-04-2018 influenza nasal, unspecified formulation Enmanuel Carroll MD Work Phone: [facility] Work Phone: 04-11-2018 pneumococcal conjuga te vaccine, 13 valent Enmanuel Carroll MD Work Phone: [facility] Work Phone: 11-12-2017 influenza, injectabl e, quadrivalent, preservative free Enmanuel Carroll MD Work Phone: [facility] 10-11-2017 tetanus toxoid, redu ron diphtheria toxoid, and acellular pertussis vaccine, adsorbed Enmanuel Carroll MD Work Phone: [facility] Work Phone: 09-20-2014 influenza, injectabl e, quadrivalent, preservative free Dr. Enmanuel Carroll MD Work Phone: [facility] 09-20-2014 influenza, seasonal, injectable, preservative free Enmanuel Carroll MD Work Phone: [facility] Work Phone: 08-18-2014 influenza, seasonal, injectable Enmanuel Carroll MD Work Phone: [facility] 07-29-2011 influenza nasal, unspecified formulation Enmanuel Carroll MD Work Phone: [facility] Work Phone: 07-04-2011 influenza virus vacc ine, unspecified formulation Enmanuel Carroll MD Work Phone: [facility] Work Phone: 07-10-2009 influenza nasal, unspecified formulation Enmanuel Carroll MD Work Phone: [facility] 04-10-2009 pneumococcal vaccine , unspecified formulation Enmanuel Carroll MD Work Phone: [facility] Work Phone: 08-16-2006 influenza virus vacc ine, unspecified formulation Enmanuel Carroll MD Work Phone: [facility] Payers Date Payer Category Payer Self-pay 2019 Medicare HUMANA MEDICARE HUMANA MEDICARE PPO [id number] 2019-Present [phone] [place] [address] PPO [id number] 2019 Medicare HUMANA MEDICARE HUMANA MEDICARE PPO [id number] 2019-Present [phone] [place] [address] PPO [id number] 2019 Medicare (Managed Care) HUMANA M EDICARE [id number] 2019 Medicare [id number] 2013 Unknown HOSPITAL/MEDICAL GENERIC MEDICAL GENERIC [id number] 2013-Present [phone] [place] [id number] Indemnity [id number] 2013 Unknown [id number] 2013 Unknown [id number] Unknown [id number] Unknown [id number] Unknown [id number] Unknown [id number] Unknown [id number] Unknown [id number] Unknown [id number] Unknown [id number] Unknown [id number] Unknown [id number] Social History Date Type Detail Facility Start: 03-01-2018 End: 08-09-2024 Tobacco smoking status NHIS Never smoked tobacco [facility] Start: 10-06-2021 End: 04-11-2025 Alcohol intake Current drinker of alcohol (finding) [facility] Start: 05-07-2020 History SDOH Alcohol Frequency 1 [facility] Start: 05-07-2020 History SDOH Alcohol Std Drinks 98 [facility] Start: 08-31-2016 History SDOH Alcohol Comment rarely [facility] Start: 05-07-2020 History SDOH Social Connections Phone 5 [facility] Start: 05-07-2020 History SDOH Social Connections Yarsani 3 [facility] Start: 05-07-2020 History SDOH Social Connections Membership 2 [facility] Start: 05-07-2020 Education 12 [facility] Start: 1945 Sex Assigned At Male [facility] Start: 03-01-2018 End: 01-01-2023 Tobacco use and exposure Smokeless tobacco non-user [facility] Start: 05-07-2020 End: 04-20-2023 History of Social function [facility] Start: 05-07-2020 End: 04-20-2023 Social connection and isolation panel [facility] Do you belong to any clubs or organizations such as [employer], [employer], [employer] or [employer] groups, or school groups? No [facility] Are you now , , , , never or living with a partner? [facility] How often to you hav e a drink containing alcohol? Never [facility] Start: 09-04-2012 How many standard drinks containing alcohol do you have on a typical day? Patient refused [facility] Do you feel stress - tense, restless, nervous, or anxious, or unable to sleep at night because your mind is troubled all the time - these days [OSQ] Only a little [facility] (I/We) worried wheth er (my/our) food would run out before (I/we) got money to buy more. Never true [facility] Start: 05-07-2020 Gender identity Identifies as male gender (finding) [facility] Start: 05-07-2020 Sexual orientation Heterosexual (finding) [facility] Do you belong to any clubs or organizations such as [employer], [employer], [employer] or [employer], or school groups? Yes [facility] How often to you hav e a drink containing alcohol? 2-4 times a month [facility] How many standard dr inks containing alcohol do you have on a typical day? 1 or 2 [facility] How often to you hav e a drink containing alcohol? Monthly or less [facility] Start: 04-30-2020 Tobacco Use Tobacco Use [facility] Medical Equipment Procedure Code Equipment Code Equipment Origin al Text Equipment Identifier Dates Check blood suga rs three times daily or as directed [id number], [id number] Start: 11-04-2007 Comment on above: Check blood sugars t hree times daily or as directed Functional Status Date Assessment Result Facility 11-29-2014 Are you deaf, or do you have serious difficulty hearing No 11/29/2014 10:02 AM Elda Decker LPN No [facility] 11-29-2014 Are you blind, or do you have serious difficulty seeing, even when wearing glasses No 11/29/2014 10:02 AM Elda Decker LPN No [facility] 11-29-2014 Do you have serious difficulty walking or climbing stairs No 11/29/2014 10:02 AM Elda Decker LPN No [facility] 11-29-2014 Do you have difficul ty dressing or bathing No 11/29/2014 10:02 AM Elda Decker LPN No [facility] 11-29-2014 Because of a physica l, mental, or emotional condition, do you have difficulty doing errands alone such as visiting a physician's office or shopping No 11/29/2014 10:02 AM Elda Decker LPN No [facility] Mental Status Date Assessment Result Facility 11-29-2014 Because of a physica l, mental, or emotional condition, do you have serious difficulty concentrating, remembering, or making decisions No 11/29/2014 10:02 AM Elda Decker LPN No [facility] Clinical Notes 02-28-2016 to 07-12-2025 Note Date & Type Note Facility 07-12-2025 Progress note [facility] 07-12-2025 Progress note Note Date/Time July 12, 2025 3:22pm [facility] [address] [place] [address] OFFICE VISIT Date of Service: 07/12/25 MR#: [id number] Acct: [id number] Name: SUDHEER HERNANDEZ Rep #: [id number] : 1945 Provider: Dr. Celena Campos MD Age/Sex: 79/M [place] [facility] [place] Signed HPI HPI History of Present Illness Details: The patient is a 79-year-old male presenting for evaluation of coronary artery calcification. 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 He denies any chest pain or shortness breath or paroxysmal nocturnal dyspnea or pedal edema and no neck arm or jaw discomfort suggest angina. The patient recently underwent a coronary artery calcium scan, which revealed a total score of 694, with 490 in the LAD, 179 in the LCX, and 25 in the RCA. He reports no chest pain, dyspnea, or dizziness. He recalls a prior stress test approximately 10 years ago, during which he experienced a significant drop in blood pressure post-exercise, leading to a "code blue" situation. He also mentions a heart catheterization performed in 2008, which showed no significant findings. His physical exam demonstrates clear lung leonard regular rate and rhythm no pedal edema and his electrocardiogram demonstrates sinus rhythm with a rate of 75 bpm first-degree AV block and possible previous inferior infarct. He has a family history of CAD; his brother, who is 10 years younger, has experienced multiple myocardial infarctions and has had 22 stents placed. He is currently taking ezetimibe for hypercholesterolemia. He previously took rosuvastatin but discontinued it due to a rash. He is also on medication for diabetes mellitus. Intake Vital Signs 08/17/24 15:24 07/12/25 14:57 Height 5 ft 11 in 5 ft 11 in Weight: 223 lb BMI 31.1 BP 131/73 H Blood Pressure Location Lt brachial Position Sitting Respiration 16 Pulse 79 Pulse Source Monitor Intake Visit Reasons: ABN CCTA (SELF) Quick Print Operator Required: No Accompanied by: Significant Other Is patient in pain?: No Allergies No Known Allergies Allergy (Verified 07/12/25 15:01) Medications ?Medication ?Instructions ?Recorded ?Confirmed ?Type metformin 500 mg tablet 1,000 mg PO BIDCM 09/25/13 1 History multivitamin 1 ea PO DAILY 04/30/2007/12 History anufk9-mxy-zwr-other [id number] 2 ea PO DAILY 07/12/25 History oil 360 mg-1,200 mg capsule turmeric 450 mg-turmeric root 2 tab PO DAILY 04/30/20 07/12/25 History extract 50 mg capsule aspirin 81 mg tablet,delayed 81 mg PO QDAY 07/05/25 History release (Adult Aspirin Regimen) cholecalciferol (vitamin D3) 25 25 mcg PO QDAY 5 07/12/25 History mcg (1,000 unit) capsule coenzyme Q10 100 mg capsule 100 mg PO QDAY 07/05/25 History empagliflozin 25 mg tablet 25 mg PO QAM 07/05/2507/12 History (Jardiance) ezetimibe 10 mg tablet 10 mg PO QDAY 07/05/2507/12 History glipizide 2.5 mg tablet 2.5 mg PO QDAY 07/05/2506/28 History lisinopril 10 mg tablet 10 mg PO QDAY 07/05/2507/12 History vitamin B complex 1 tab PO QDAY 07/05/2507/12 History zinc gluconate 50 mg tablet 50 mg PO QDAY 07/05/2506/28 History ascorbic acid (vitamin C) 1,000 mg 500 mg PO DAILY 06/2807/12/25 History tablet rosuvastatin 10 mg tablet (Crestor) 10 mg PO QDAY 06/2807/12/25 History sitagliptin 100 mg tablet 100 mg PO QDAY 07/12/2506/28 History Have you fallen in the past year?: No PFSH Medical History Other cardiomyopathies Neuropathy BPH (benign prostatic hyperplasia) Abnormal findings on diagnostic imaging of heart and coronary circulation Cellulitis of left lower extremity Diabetes High cholesterol Gastric reflux CPAP (continuous positive airway pressure) dependence Sleep apnea Hypertension Surgical History Hx of cataract extraction History of cardiac catheterization Hx of umbilical hernia repair history skin graft right leg History of arthroscopy of left knee Family History Sister Cancer Diabetes Social History Smoking Status: Never smoker alcohol intake: never substance use type: does not use ROS Const Const: Negative for fatigue, weakness, daytime sleepiness or difficulty sleeping ENT ENT: Negative for dizziness or Nosebleed/epistaxis Cardio Chest Pain: No Palpitations: No Edema: None Resp Respiratory: Negative for SOB with activity, SOB at rest, SOB orthopnea\\SOB lying down or Cough GI GI: Negative nausea, vomiting or heartburn Neuro Neuro: Negative for dizziness, lightheadedness, near syncope or weakness Endo Endo: Negative for fatigue Cardiology Exam Const Appearance: cooperative, healthy appearing, no acute distress, well developed and well groomed Nutritional Appearance: average body habitus and well nourished Orientation: alert, awake and oriented x3 Head Head: normal to inspection, normocephalic and atraumatic Ears: hearing grossly normal bilaterally and external ears normal Nose: external nose normal, nares normal, nasal mucous membranes and turbinates normal, septum normal and no nasal discharge Face and Sinus: face symmetric Mouth: oral mucosae normal, tongue normal, oropharynx normal and moist mucous membranes Teeth and gingiva: dentition normal Throat: posterior oropharynx normal, tonsils normal and uvula midline Eyes General: appearance normal, both eyes and all related structures Eyelids: eyelids normal Conjunctivae: conjunctivae normal Pupils: PERRL, normal by confrontation and accommodation normal EOM: EOM intact bilaterally Neck Neck: normal visual inspection, trachea midline and no JVD JVD: +5 Carotids: normal carotid upstroke and bounding pulses Chest Chest inspection: normal inspection of the chest, symmetric chest movement and normal respiratory effort Auscultation: Bilateral: Clear to Auscultation Cardio Palpation: normal PMI Rate: regular rate Rhythm: regular rhythm Heart sounds: S1 normal, S2 normal and normal, physiologic split S2; Negative rub, gallop or murmur GI GI: normal to inspection, soft, no hepatosplenomegaly and bowel sounds present Neuro General: patient alert, patient awake, patient oriented x3, gait normal, moves all extremities and no focal sensory deficit Skin Skin: no rashes or lesions noted Extremities Pulses: Normal: Right Femoral Pulse, Left Femoral Pulse, Right Dorsalis Pedis Pulse, Left Dorsalis Pedis Pulse, Right Posterior Tibial Pulse, Left Posterior Tibial Pulse, Right Radial Pulse and Left Radial Pulse Lower Extremity Edema: None: Bilateral Musculoskel Musculoskeletal: No joint tenderness Psych Psychological: normal affect Supplemental Info Supplemental Information Echocardiogram 11/19/14 Interpretation Summary Normal LV size. Mild concentric left ventricular hypertrophy. Left ventricular systolic function is lower limits of normal. The estimated ejection fraction is 50 %. Transmitral and pulmonary venous doppler flow suggestive of impaired relaxation of left ventricle Stress Test 11/19/14 Conclusion Pharmacologic myocardial perfusion stress test with no evidence of ischemia Preserved ejection fraction Coronary Angiography CT 06/21/25 Findings Coronary Artery Left Main (LM): 0 Left Anterior Descending (LAD): 490 Left Circumflex (LCX): 179 Right Coronary Artery (RCA): 25 Total Agatston Score: 694 Conclusion: Moderate two-vessel plaque disease and mild one-vessel plaque disease present. Labs: LDL Cholesterol, (0-130) 160 mg/dL H HDL Cholesterol, (40-) 40 mg/dL Cholesterol, (200) 226 mg/dL H Triglycerides, (-199) 129 mg/dL Diagnostics: Electrocardiogram Echocardiogram Stress Test Nuclear Medicine Abdomen/Pelvis CT Coronary Angiography CT Past Visits: Cardiology Visit Today Assessment and Plan Assessment and Plan (1) Abnormal findings on diagnostic imaging of heart and coronary circulation: Status: Acute Plan: # Atherosclerotic heart disease of [place] coronary artery without angina pectoris (I25.10) Coronary artery calcium score elevated at 694, with 490 in the LAD, 179 in the LCx, and 25 in the RCA; no current chest pain, dyspnea, or dizziness. Prior stress test and cardiac catheterization were unremarkable, but these were performed over a decade ago. Family history notable for significant CAD in a younger brother. - Order treadmill stress test and echocardiogram. - Order carotid ultrasound. - Explained rationale for testing and addressed prior vasovagal episode during stress testing; reassured regarding improved monitoring and management. - Will review results and determine further management based on findings. (2) Hypertension: Status: Chronic Comment: CONTROLLED ON MEDS Plan: Blood pressure appears to be quite well-controlled on the current medical therapy. (3) High cholesterol: Status: Acute Plan: Continue current medical therapy. He has not been very compliant with the rosuvastatin. He is due for blood work at the [facility] and depending on those findings further recommendations will be made. (4) Diabetes: Status: Acute Plan: # Type 2 diabetes mellitus without complications (E11.9) Diabetes managed with medication; no complications reported. - Continue current diabetes management. Orders: Orders 12 Lead EKG performed by [facility] Today E78.00 - Pure hypercholesterolemia, unspecified, I10 - Essential (primary) hypertension, I42.8 - Other cardiomyopathies, R93.1 - Abnormal findings on diagnostic imaging of heart and coronary circulation Echo Complete Today I25.10 - Atherosclerotic heart disease of [place] coronary artery without angina pectoris Nuclear Stress Test - Treadmil Today R93.1 - Abnormal findings on diagnostic imaging of heart and coronary circulation Plan Details Follow Up: 1 Year (sd) Coding Level of Care Code Off vis,new,level 4 Diagnoses Abnormal findings on diagnostic imaging of heart and coronary circulation R93.1 Hypertension I10 High cholesterol E78.00 Diabetes E11.9 Coding Level of Care Code Off vis,new,level 4 Diagnoses Abnormal findings on diagnostic imaging of heart and coronary circulation R93.1 Hypertension I10 High cholesterol E78.00 Diabetes E11.9 Clinical Quality Measures Falls Risk Screening/Assistive Devices Have you fallen in the past year?: No 07/12/25 1529 <Electronically signed by Gamal Ambriz> Date _ Gamal Campos MD Cosigner Signature: Date (if applicable) CC: Dr. Enmanuel Carroll MD ~ [facility] [employer] Work Phone: [phone] Telephone encounter Note* Telephone Encounter - Martina Monahan MA - 06/01/2025 1:43 PM EDT Referral placed and faxed with order Left message for patient he can call [facility] to schedule Martina Monahan MA [facility]08-29-2025 Miscellaneous Notes* Telephone Encounter - Martina Monahan MA - 06/01/2025 1:43 PM EDT Referral placed and faxed with order Left message for patient he can call [facility] to schedule Martina Monahan MA * Telephone Encounter - Maddy Lowe APRN.CNS - 06/01/2025 11:45 AM EDT OK, order filed, please process. * Telephone Encounter - Martina Monahan MA - 06/01/2025 9:00 AM EDT Patient is requesting only CT calcium score test patient advised wants to go to [facility] since free Martina Monahan MA * Telephone Encounter - Jaye Eugene RN - 05/31/2025 7:28 PM EDT Perhaps need to call pt and confirm what veins he wants ultrasound on and is he talking about the Calcium CT score measuring calcium buildup in the coronary arteries. Has pt checked with insurance company for coverage on testing? * Telephone Encounter - Juju Vega - 05/31/2025 3:33 PM EDT Patient had message on wait list requesting the follow orders from PCP. Pt is requesting order for ultrasound, veins and calcium to be tested please. Please advise patient. [facility] Telephone encounter Note * Telephone Encounter - Maddy Lowe APRN.CNS - 06/01/2025 11:45 AM EDT OK, order filed, please process. [facility]08-29-2025 Telephone encounter Note* Telephone Encounter - Martina Monahan MA - 06/01/2025 9:00 AM EDT Patient is requesting only CT calcium score test patient advised wants to go to [facility] since free Martina Monahan MA [facility]08-28-2025 Telephone encounter Note* Telephone Encounter - Jaye Eugene RN - 05/31/2025 7:28 PM EDT Perhaps need to call pt and confirm what veins he wants ultrasound on and is he talking about the Calcium CT score measuring calcium buildup in the coronary arteries. Has pt checked with insurance company for coverage on testing? [facility]08-28-2025 Telephone encounter Note* Telephone Encounter - Juju Vega - 05/31/2025 3:33 PM EDT Patient had message on wait list requesting the follow orders from PCP. Pt is requesting order for ultrasound, veins and calcium to be tested please. Please advise patient. [facility]07-09-2025 Instructions* Patient Instructions* Enmanuel Carroll MD - 04/11/2025 5:49 PM EDT - Continue metformin 1,000 mg twice daily as prescribed. - Continue empagliflozin (Jardiance) 25 mg once daily in the morning with breakfast. - Continue sitagliptin (Januvia or Zituvio) 100 mg once daily at bedtime; refer to the medication handout for how it works and potential side effects. - Reduce glipizide to 2.5 mg once daily with breakfast; if you experience any low blood sugars, we will discontinue glipizide first. - Perform a foot exam every 3 to 4 months and report any changes (sores, numbness, redness). - We have documented your [facility] as done on November [facility]; your next [facility] is [facility] for[facility] next year--no need to repeat it here. - Continue getting your lab work (A1c, kidney function, cholesterol, urine microalbumin) at the OR;we will update your records here to avoid duplicate tests. - Keep your hemoglobin A1c in the mid-6% range; report any significant lows or highs. - Schedule a primary care follow-up appointment in 6 months. - Plan your next annual wellness visit under your [employer]vantage plan in October (-year benefit). Screening schedule The following prevention plan is recommended: RSV Vaccine(1 - 1-dose 75+ series) Never done Advance Directive Discussion due on 10/04/2024 LDL Cholesterol due on 11/15/2024 Depression Screening due on 05/09/2025 Anxiety Screening due on 05/09/2025 WHAT YOU CAN DO TO PREVENT FALLS Many falls can be prevented. By making some changes, you can lower your chances of falling. Four things YOU can do to prevent falls for you* and your caregiver 1. Begin a regular exercise program Exercise is one of the most important ways to lower your chances of falling. It makes you stronger and helps you feel better. Exercises that improve balance and coordination (like Sean Chi) are the most helpful. Lack of exercise leads to weakness and increases your chances of falling. Ask your doctor or health care provider about the best type of exercise program for you. 2. Have your health care provider review your medicines Have your doctor or pharmacist review all the medicines you take, even [id number] medicines. As you get older, the way medicines work in your body can change. Some medicines, or combinations of medicines, can make you sleepy or dizzy andcan cause you to fall. 3. Have your vision checked Have your eyes checked by an eye doctor at least once a year. You may be wearing the wrong glasses or have a condition like glaucoma or cataracts that limits your vision. Poor vision can increase your chances of falling. 4. Make your home safer About half of all falls happen at home. To make your home safer: Remove things you can trip over (like papers, books, clothes, and shoes) from stairs and places where you walk. Remove small throw rugs or use double-sided tape to keep the rugs from slipping. Keep items you use often in cabinets you can reach easily without using a step stool. Have grab bars put in next to your toilet and in the tub or shower. Use non-slip mats in the bathtub and on shower floors. Improve the lighting in your home. As you get older, you need brighter lights to see well. Hang light-weight curtains or shades to reduce glare. Have handrails and lights put in on all staircases. Wear shoes both inside and outside the house. Avoid going barefoot or wearing slippers. For more information, contact: Centers for Disease Control and Prevention www.cdc.gov/injury * This information may not apply if you have certain medical conditions. documented in this [facility] NoteHNO ID: [id number] Author: ENMANUEL CARROLL MD Service: ? Author Type: Physician Type: Progress Notes Filed: 05/04/2025 00:43 Note Text: This note was created using [employer]. Subjective Sudheer Hernandez is a 79 year old male. SUBJECTIVE: Sudheer Hernandez is a 79-year-old male with a history of DM, presenting for a Medicare Annual Wellness Visit. Sudheer reports his health as "very good." He exercises approximately 20 minutes per session, 3 days per week, and spends an additional 3 days per week working in his garden. 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 He reports no changes in family history. Sudheer reports balance issues secondary to neuropathy in his feet, which necessitates caution when standing with his eyes closed. He denies any issues with bowel movements and reports improvement in bladder function, stating he usually wakes up only once at 0500 to urinate. Sudheer is under the care of multiple specialists, including a urologist, knitted garment finisher, artificial foliage arranger, and primary care physician at the OR. He has a history of BPH and is monitored by his urologist, Dr. Mathews, every 6 months. He had an eye exam in late October and has a follow-up scheduled for next October. He also sees a artificial foliage arranger every 3-4 months for foot exams. He was previously under the care of a diabetic pharmacist, Dr. Khalil, but was released from care due to improved glycemic control. He continues to see his primary care physician, Dr. Roger, at the OR every 6 months. Sudheer is currently on a medication regimen for DM that includes metformin 1,000 mg BID, Jardiance 25 mg daily, and sitagliptin 25 mg daily. He was previously on glipizide 10 mg daily, which was reduced to 2.5 mg daily due to episodes of hypoglycemia. He inquires about the possibility of reducing his metformin dosage. He also reports a reduction in sugar intake. His most recent HbA1c was 6.9%, down from 7% in January and 7.9% in May of the previous year. He expresses a desire to lower his HbA1c further. PAST MEDICAL HISTORY Diagnosis Date Abdominal pain, right lower quadrant Benign neoplasm of colon Calculus of gallbladder without mention of cholecystitis or obstruction 06/01/2005 Diaphragmatic hernia without mention of obstruction or gangrene Diverticulosis of colon (without mention of hemorrhage) 06/01/2005 Diverticulosis of colon (without mention of hemorrhage) Esophageal reflux 06/01/2005 Obesity, unspecified 06/01/2005 Other primary cardiomyopathies 06/01/2005 Other specified visual disturbances Pure hypercholesterolemia 06/01/2005 Snoring Type II or unspecified type diabetes mellitus without mention of complication, not stated as uncontrolled 06/01/2005 Unspecified essential hypertension 06/01/2005 Current Outpatient Medications Medication Sig COQ10, LIPOSOMAL UBIQUINOL, ORAL Take 1 capsule by mouth once daily. ezetimibe (ZETIA) 10 mg tablet Take 1 tablet by mouth once daily. lisinopril (ZESTRIL) 10 mg tablet Take 1 tablet by mouth once daily. aspirin, enteric coated (ASPIRIN, ENTERIC COATED) 81 mg EC tablet Take 81 mg by mouth as needed. empagliflozin (JARDIANCE) 25 mg tablet Take 1 tablet by mouth daily with breakfast. omega-3/dha/epa/fish oil (FISH OIL HIGH POTENCY ORAL) Take 1 capsule by mouth. 2400 mg taking 2 capsules Ascorbic Acid (VITAMIN C) 100 mg tablet Take 100 mg by mouth once daily. metFORMIN (GLUCOPHAGE) 1,000 mg tablet Take 1 tablet by mouth twice daily with meals. (VA) TURMERIC ORAL Take by mouth once daily. cholecalciferol, vitamin D3, (VITAMIN D3 ORAL) Take 1 tablet by mouth once daily. ZINC ACETATE ORAL Take 1 tablet by mouth once daily. vitamin B complex (B COMPLEX 1 ORAL) Take by mouth. blood sugar diagnostic(ONE TOUCH ULTRA TEST STRIPS) Check blood sugars three times daily or as directed lancets(ONE TOUCH ULTRASOFT LANCETS) Check blood sugars three times daily or as directed ONE TOUCH ULTRA SYSTEM KIT Use kit as directed to check blood sugars 3 times daily or as directed THERAPEUTIC MULTIVITAMIN TAB Take one(1) tablet daily. glipiZIDE 2.5 mg tablet Take 1 tablet by mouth daily with breakfast. (VA) SITagliptin (ZITUVIO) 100 mg tablet Take 100 mg by mouth once daily. (Patient not taking: Reported on 04/11/2025) rosuvastatin (CRESTOR) 10 mg tablet Take 4 tablets by mouth every evening. (Patient not taking: Reported on 04/11/2025) alogliptin (NESINA) 25 mg tab Take 1 tablet by mouth every evening. (Patient not taking: Reported on 05/09/2024) GARLIC (Patient not taking: Reported on 05/30/2024) Lactobacillus acidophilus (PROBIOTIC) 10 billion cell cap Take by mouth. (Patient not taking: Reported on 04/11/2025) No current facility-administered medications for this visit. Review of Systems Objective BP 108/62 (BP Site: Left Arm, BP Position: Sitting, BP Cuff Size: Regular Adult) Pulse 77 Wt 97.3 kg (214 lb 8.1 oz) SpO2 95% BM (more content not included)...[facility]07-09-2025 History of Present illness Narrative* Enmanuel Carroll MD - 04/11/2025 5:38 PM EDT Images from the original note were not included. This note was created using [employer]. Subjective Sudheer Hernandez is a 79 year old male. SUBJECTIVE: Sudheer Hernandez is a 79-year-old male with a history of DM, presenting for a Medicare Annual Wellness Visit. Sudheer reports his health as "very good." He exercises approximately 20 minutes per session, 3 days per week, and spends an additional 3 days per week working in his garden. 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 He reports no changes in family history. Sudheer reports balance issues secondary to neuropathy in his feet, which necessitates caution when standing with his eyes closed. He denies any issues with bowel movements and reports improvement in bladder function, stating he usually wakes up only once at 0500 to urinate. Sudheer is under the care of multiple specialists, including a urologist, knitted garment finisher, artificial foliage arranger, and primary care physician at the OR. He has a history of BPH and is monitored by his urologist, Dr. Mathews, every 6 months. He had an eye exam in late October and has a follow-up scheduled for next October. He also sees a artificial foliage arranger every 3-4 months for foot exams. He was previously under the careof a diabetic pharmacist, Dr. Khalil, but was released from care due to improved glycemic control.He continues to see his primary care physician, Dr. Roger, at the OR every 6 months. Sudheer is currently on a medication regimen for DM that includes metformin 1,000 mg BID, Jardiance 25 mg daily, and sitagliptin 25 mg daily. He was previously on glipizide 10 mg daily, which was reduced to 2.5 mg daily due to episodes of hypoglycemia. He inquires about the possibility of reducing his metformin dosage. He also reports a reduction in sugar intake. His most recent HbA1c was 6.9%, down from 7% in January and 7.9% in May of the previous year. He expresses a desire to lower his [id number]. PAST MEDICAL HISTORY Diagnosis Date Abdominal pain, right lower quadrant Benign neoplasm of colon Calculus of gallbladder without mention of cholecystitis or obstruction 06/01/2005 Diaphragmatic hernia without mention of obstruction or gangrene Diverticulosis of colon (without mention of hemorrhage) 06/01/2005 Diverticulosis of colon (without mention of hemorrhage) Esophageal reflux 06/01/2005 Obesity, unspecified 06/01/2005 Other primary cardiomyopathies 06/01/2005 Other specified visual disturbances Pure hypercholesterolemia 06/01/2005 Snoring Type II or unspecified type diabetes mellitus without mention of complication, not stated as uncontrolled 06/01/2005 Unspecified essential hypertension 06/01/2005 Current Outpatient Medications Medication Sig COQ10, LIPOSOMAL UBIQUINOL, ORAL Take 1 capsule by mouth once daily. ezetimibe (ZETIA) 10 mg tablet Take 1 tablet by mouth once daily. lisinopril (ZESTRIL) 10 mg tablet Take 1 tablet by mouth once daily. aspirin, enteric coated (ASPIRIN, ENTERIC COATED) 81 mg EC tablet Take 81 mg by mouth as needed. empagliflozin (JARDIANCE) 25 mg tablet Take 1 tablet by mouth daily with breakfast. omega-3/dha/epa/fish oil (FISH OIL HIGH POTENCY ORAL) Take 1 capsule by mouth. 2400 mg taking 2 capsules Ascorbic Acid (VITAMIN C) 100 mg tablet Take 100 mg by mouth once daily. metFORMIN (GLUCOPHAGE) 1,000 mg tablet Take 1 tablet by mouth twice daily with meals. (VA) TURMERIC ORAL Take by mouth once daily. cholecalciferol, vitamin D3, (VITAMIN D3 ORAL) Take 1 tablet by mouth once daily. ZINC ACETATE ORAL Take 1 tablet by mouth once daily. vitamin B complex (B COMPLEX 1 ORAL) Take by mouth. blood sugar diagnostic(ONE TOUCH ULTRA TEST STRIPS) Check blood sugars three times daily or as directed lancets(ONE TOUCH ULTRASOFT LANCETS) Check blood sugars three times daily or as directed ONE TOUCH ULTRA SYSTEM KIT Use kit as directed to check blood sugars 3 times daily or as directed THERAPEUTIC MULTIVITAMIN TAB Take one(1) tablet daily. glipiZIDE 2.5 mg tablet Take 1 tablet by mouth daily with breakfast. (VA) SITagliptin (ZITUVIO) 100 mg tablet Take 100 mg by mouth once daily. (Patient not taking: Reported on 04/11/2025) rosuvastatin (CRESTOR) 10 mg tablet Take 4 tablets by mouth every evening. (Patient not taking: Reported on 04/11/2025) alogliptin (NESINA) 25 mg tab Take 1 tablet by mouth every evening. (Patient not taking: Reported on 05/09/2024) GARLIC (Patient not taking: Reported on 05/30/2024) Lactobacillus acidophilus (PROBIOTIC) 10 billion cell cap Take by mouth. (Patient not taking: Reported on 04/11/2025) No current facility-administered medications for this visit. Review of Systems Objective BP 108/62 (BP Site: Left Arm, BP Position: Sitting, BP Cuff Size: Regular Adult) Pulse 77 Wt 97.3 kg (214 lb 8.1 oz) SpO2 95% BMI 29.54 kg/m Physical Exam Vitals reviewed. Constitutional: Appearance: Normal appearance. HENT: Head: Normocephalic. Right Ear: Tympanic membrane, ear canal and external ear normal. Left Ear: Tympanic membrane, ear canal and external ear normal. Mouth/Throat: Mouth: Mucous membranes are moist. Pharynx: Oropharynx is clear. Eyes: Extraocular Movements: Extraocular movements intact. Conjunctiva/sclera: Conjunctivae normal. Neck: Vascular: No carotid bruit. Cardiovascular: Rate and Rhythm: Normal rate and regular rhythm. Pulses: Normal pulses. Heart sounds: Normal heart sounds. Pulmonary: Effort: Pulmonary effort is normal. Breath sounds: Normal breath sounds. Abdominal: General: Abdomen is flat. There is no distension. Palpations: Abdomen is soft. There is no mass. Musculoskeletal: Cervical back: Normal range of motion. Right lower leg: Edema (trace pretibial) present. Left lower leg: Edema (trace pretibial) present. Feet: Right foot: Protective Sensation: 10 sites tested. 10 sites sensed. Skin integrity: Callus (mild) and dry skin (mild) present. No ulcer, blister, skin breakdown, erythema or fissure. Toenail Condition: Right toenails are normal. Left foot: Protective Sensation: 10 sites tested. 10 sites sensed. Skin integrity: Callus (mild) and dry skin (mild) present. No ulcer, blister, skin breakdown, erythema or fissure. Toenail Condition: Left toenails are normal. Skin: General: Skin is warm and dry. Neurological: General: No focal deficit present. Mental Status: He is alert and oriented to person, place, and time. Psychiatric: Attention and Perception: Attention and perception normal. Mood and Affect: Mood and affect normal. Speech: Speech normal. Behavior: Behavior normal. Thought Content: Thought content normal. Cognition and Memory: Cognition and memory normal. Judgment: Judgment normal. Latest Ref [facility] 11/15/2023 04/04/2025 Protein, Total 6.3 - 8.0 g/dL 6.6 Albumin 3.9 - 4.9 g/dL 4.3 Calcium 8.5 - 10.2 mg/dL 9.4 Bilirubin, Total 0.2 - 1.3 mg/dL 0.2 Alkaline Phosphatase 38 - 113 U/L 59 AST 14 - 40 U/L 14 ALT 10 - 54 U/L 13 Glucose 74 - 99 mg/dL 190 (H) BUN 9 - 24 mg/dL 27 (H) Creatinine 0.73 - 1.22 mg/dL 1.27 (H) Sodium 136 - 144 mmol/L 138 Potassium 3.7 - 5.1 mmol/L 4.4 Chloride 97 - 105 mmol/L 104 CO2 22 - 30 mmol/L 22 Anion Gap 9 - 18 mmol/L 12 eGFR >=60 mL/min/1.73m 58 (L) WBC 3.70 - 11.00 k/uL 6.00 RBC 4.20 - 6.00 m/uL 5.06 Hemoglobin 13.0 - 17.0 g/dL 12.5 (L) Hematocrit 39.0 - 51.0 % 40.2 MCV 80.0 - 100.0 fL 79.4 (L) MCH 26.0 - 34.0 pg 24.7 (L) MCHC 30.5 - 36.0 g/dL 31.1 RDW-CV 11.5 - 15.0 % 16.0 (H) Platelet Count 150 - 400 k/uL 244 MPV 9.0 - 12.7 fL 9.2 Absolute nRBC <0.01 k/uL <0.01 Cholesterol, Total <200 mg/dL 121 Triglyceride <150 mg/dL 160 (H) HDL Cholesterol >39 mg/dL 38 (L) Non HDL Cholesterol <130 mg/dL 83 Fasting Time hrs 10 VLDL Cholesterol <30 mg/dL 32 (H) TC:HDL Ratio <5.10 3.18 LDL Cholesterol, Calculated <100 mg/dL 51 LDL:HDL Ratio <2.54 1.34 Creatinine, Ur Random (UCRR) 20.0 - 300.0 mg/dL 59.1 Albumin, Urine Random mg/L <12.0 Albumin/Creat Ratio <30 mg/g <20 Hemoglobin A1C 4.3 - 5.6 % 7.3 (H) 6.9 (H) Estimated Average Glucose mg/dL 163 151 Legend: (H) High (L) Low Assessment and Plan See below visit was discussed with the patient/authorized commercial sales representative; all questions welcomed and answered. Patient/authorized commercial sales representative agreed to proceedSudheer Hernandez is a 79 year old male here for aMedicare wellness visit. Medicare Health Risk Assessment General Health Very good Exercise: Minutes/Day 20 min Exercise: Days/Week 3 days Alcohol: Daily Use Monthly or less Alcohol: Drinks/Day 1 or 2 Alcohol: 6 or more drinks Never Feel off balance Yes (Due to neuropathy in feet; has to watch his balance) Concerns: Teeth/Dentures No Concerns: Sexual function -- (Follows with Dr. Barragan (urology) Troubled by feelings None of the above Frequency: Eating healthy diet Nearly every day ADLs requiring help None of the above Safety precautions in home/vehicle Yes Smoke, vape, chews tobacco No Difficulty hearing No Difficulty seeing -- (last eye exam nov 2024) Current Providers Specialists: I have reviewed specialist-related care of the patient in the medical record. Outside specialists seen: Dr. Barragan (urology at [facility]); [facility] for [facility] and artificial foliage arranger and primarycare provider. Was seeing PharmD. Medical/Family history review Reviewed and updated problem list, medical/surgical/family/social history, medications, and allergies. Opioid use review Opioid Medications (last 90 days) No data to display Anxiety/Depression screening PHQ-2 Score: 0 (Lower risk for depression) JOANA-2 Score: 0 (Lower risk for anxiety) Recommendation: no further intervention at this time Cognitive screening Mini Cog Score: 5 Cognitive screening reviewed and No further action needed (score 3-5). Functional Observation Was the patient's Timed Up & Go test unsteady or >= 12 seconds? No Advance Care Planning Surrogate decision maker documented and/or advance directives scanned in chart Measurements BP 108/62 (BP Site: Left Arm, BP Position: Sitting, BP Cuff Size: Regular Adult) Pulse 77 Wt 97.3 kg (214 lb 8.1 oz) SpO2 95% BMI 29.54 kg/m Vision Screening: Follows with optometry/ophthalmology Assessment/Plan Medicare annual wellness visit, subsequent (Z00.) - Counseled on healthy diet and regular exercise - Fall avoidance information provided - Personalized prevention plan provided # Medicare annual wellness visit, subsequent (Z00.) - Completed Medicare annual wellness visit. - Discussed insurance coverage with [employer] Plan, confirming eligibility for the visit today. - Reviewed and updated medical history, including family history and current medications. - Scheduled next annual wellness visit for next year. # Diabetic polyneuropathy associated with type 2 diabetes mellitus (HCC) (E11.42) # Other diabetic neurological complication associated with type 2 diabetes mellitus (HCC) (E11.49) - Neuropathy in feet causing balance issues. - Advised patient to use visual and auditory cues for balance and to keep a hand on a stable surface when eyes are closed. - Foot exam performed today; no significant abnormalities noted. - Continue current diabetes management. 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 # Encounter for screening examination for other mental health and behavioral disorders (Z13.39) # Screening for depression (Z13.31) - Completed screening for depression and anxiety; no concerns identified. # Essential hypertension with goal blood pressure less than 130/80 (I10) - Blood pressure well-controlled. - Continue current antihypertensive regimen. # Benign prostatic hyperplasia without urinary obstruction (N40.0) - Patient under the care of Dr. Mathews, urologist, with regular follow-ups every 6 months. - Nocturia improved; patient reports waking up once per night. - Continue monitoring by urology. Enmanuel Carroll MD Recording using ambient Helpa software for draft documentation of the visit was discussed with the patient/authorized commercial sales representative; all questions welcomed and answered. Patient/authorized commercial sales representative agreed to proceed documented in this encounterMer[facility]25 NoteHNO ID: [id number] Author: ?, ?, ? Service: ? Author Type: ? Type: Progress Notes Filed: 04/11/2025 10:23 Note Text: POPULATION HEALTH NAVIGATION OUTREACH Action/FYI Patient outreach for HCCs HM due; KED, BENJAMIN Lvm and sent mychart to close gaps/ pt sees PCP today. Reason for Outreach Care Gap/HCC or Scheduling Wellness Visits Care Gaps due: Diabetic Eye Exam KED Patient Contacted: Unable or unnecessary to reach patient: Left message PlayyOnhart message sent HCC related Navigation Signature: Marilyn Miller April 11, 2025 10:17 [facility]07-09-2025 History of Present illness Narrative* Marilyn Calloway - 04/11/2025 10:17 AM EDT POPULATION HEALTH NAVIGATION OUTREACH Action/FYI Patient outreach for HCCs HM due; KED, BENJAMIN Lvm and sent mychart to close gaps/ pt sees PCP today. Reason for Outreach Care Gap/HCC or Scheduling Wellness Visits Care Gaps due: Diabetic Eye Exam KED Patient Contacted: Unable or unnecessary to reach patient: Left message PlayyOnhart message sent HCC related Navigation Signature: Marilyn Miller April 11, 2025 10:17 AM documented in this encounterMer[facility] NotePatient Outreach (NETNAV) SUDHEER HERNANDEZ ([id number]) 1945 M Date Time Provider Department 04/11/25 ENMANUEL CARROLL During your visit today, we recorded the following information about you: Marilyn Calloway 04/11/2025 10:23 AM Signed POPULATION HEALTH NAVIGATION OUTREACH Action/FYI Patient outreach for HCCs HM due; KEPb, BENJAMIN Lvm and sent Rent Heret to close gaps/ pt sees PCP today. Reason for Outreach Care Gap/HCC or Scheduling Wellness Visits Care Gaps due: Diabetic Eye Exam KEPb Patient Contacted: Unable or unnecessary to reach patient: Left message PlayyOnhart message sent HCC related Navigation Signature: Marilyn Miller April 11, 2025 10:17 AM Allergies As of Date: 04/11/2025 (No Known Allergies) Date Reviewed: 05/30/2024 Reviewed by: Lynne Scott LPN - Fully Assessed Reason for Visit: Population Health Navigation Outreach [3910] Cmt: Félix Christianson Prescriptions as of 04/11/2025 - COQ10, LIPOSOMAL UBIQUINOL, ORAL Take 1 capsule by mouth once daily. - SITagliptin (ZITUVIO) 100 mg tablet Take 100 mg by mouth once daily. - rosuvastatin (CRESTOR) 10 mg tablet Take 4 tablets by mouth every evening. - ezetimibe (ZETIA) 10 mg tablet Take 1 tablet by mouth once daily. - lisinopril (ZESTRIL) 10 mg tablet Take 1 tablet by mouth once daily. - glipiZIDE (GLUCOTROL) 10 mg tablet Take 1 tablet by mouth daily before breakfast - aspirin, enteric coated (ASPIRIN, ENTERIC COATED) 81 mg EC tablet Take 81 mg by mouth as needed. - alogliptin (NESINA) 25 mg tab Take 1 tablet by mouth every evening. - empagliflozin (JARDIANCE) 25 mg tablet Take 1 tablet by mouth daily with breakfast. - omega-3/dha/epa/fish oil (FISH OIL HIGH POTENCY ORAL) Take 1 capsule by mouth. 2400 mg taking 2 capsules - Ascorbic Acid (VITAMIN C) 100 mg tablet Take 100 mg by mouth once daily. - GARLIC - Lactobacillus acidophilus (PROBIOTIC) 10 billion cell cap Take by mouth. - metFORMIN (GLUCOPHAGE) 1,000 mg tablet Take 1 tablet by mouth twice daily with meals. (VA) - TURMERIC ORAL Take by mouth once daily. - cholecalciferol, vitamin D3, (VITAMIN D3 ORAL) Take 1 tablet by mouth once daily. - ZINC ACETATE ORAL Take 1 tablet by mouth once daily. - vitamin B complex (B COMPLEX 1 ORAL) Take by mouth. - blood sugar diagnostic(ONE TOUCH ULTRA TEST STRIPS) Check blood sugars three times daily or as directed - lancets(ONE TOUCH ULTRASOFT LANCETS) Check blood sugars three times daily or as directed - ONE TOUCH ULTRA SYSTEM KIT Use kit as directed to check blood sugars 3 times daily or as directed - THERAPEUTIC MULTIVITAMIN TAB Take one(1) tablet daily. Meds Comments as of 12/07/2020: December 07, 2020 Denies new medications in the last 30 days. Problem List As Of Date 04/11/2025 Noted Resolved PURE HYPERCHOLESTEROLEM [E78.00] 06/01/2005 Type 2 diabetes mellitus without complication, *06/01/2005 CHOLELITHIASIS NOS [K80.20] 06/01/2005 DIVERTICULOSIS OF COLON W/O BLEED [K57.30] 06/01/2005 OBESITY NOS [E66.9] 06/01/2005 ESOPHAGEAL REFLUX [K21.9] 06/01/2005 Other cardiomyopathies (HCC) [I42.8] 06/01/2005 BENIGN NEOPLASM LG BOWEL [D12.6] 03/08/2006 ABDOMINAL PAIN RLQ [R10.31] 03/08/2006 Chest pain, atypical--probably GI [R07.89] 08/13/2011 Acute gastritis without mention of hemorrhage [*11/26/2011 Daytime sleepiness [R40.0] 02/28/2016 Apnea [R06.81] 02/28/2016 07/08/2016 Non morbid obesity due to excess calories [E66.*02/28/2016 Essential hypertension with goal blood pressure*02/28/2016 Snoring [R06.83] 02/28/2016 VENU (obstructive sleep apnea) [G47.33] 12/17/2016 Uncontrolled type 2 diabetes mellitus with hype*04/16/2021 05/24/2023 Bilateral leg numbness [R20.0] 04/16/2021 Diabetic polyneuropathy associated with type 2 *11/15/2023 Obesity, Class I, BMI 30-34.9 [E66.811] 11/15/2023 Encounter Status:Closed by MARILYN CALLOWAY on 04/11/25[facility]06-09-2025 NoteHNO ID: [id number] Author: HECTOR BRYAN MA Service: ? Author Type: Manager Commercial Sales Type: Progress Notes Filed: 03/12/2025 15:09 Note Text: POPULATION HEALTH NAVIGATION OUTREACH Action/FYI Gaps due: A1C KED DIABETIC RETINAL EXAM HCCs Med adherence: Rosuvastatin, Lisinopril, ezetimibe, jardiance, glipizide, metformin LVM/MCM/Updated notes. Reason for Outreach Care Gap/HCC or Scheduling Wellness Visits Care Gaps due: Diabetic Eye Exam HBA1C KED Patient Contacted: Unable or unnecessary to reach patient: Left message [employer] message sent HCC related Updated appointment notes Navigation Signature: Hector Bryan MA March 12, 2025 3[facility] History of Present illness Narrative* Hector Bryan MA - 03/12/2025 3:04 PM EDT POPULATION HEALTH NAVIGATION OUTREACH Action/FYI Gaps due: A1C KED DIABETIC RETINAL EXAM HCCs Med adherence: Rosuvastatin, Lisinopril, ezetimibe, jardiance, glipizide, metformin LVM/MCM/Updated notes. Reason for Outreach Care Gap/HCC or Scheduling Wellness Visits Care Gaps due: Diabetic Eye Exam HBA1C KED Patient Contacted: Unable or unnecessary to reach patient: Left message [employer] message sent HCC related Updated appointment notes Navigation Signature: Hector Bryan MA March 12, 2025 3:04 PM documented [facility] NotePatient Outreach (NETNAV) SUDHEER HERNANDEZ ([id number]) 1945 M Date Time Provider Department 03/12/25 HECTOR BRYAN During your visit today, we recorded the following information about you: Hector Bryan MA 03/12/2025 3:09 PM Signed POPULATION HEALTH NAVIGATION OUTREACH Action/FYI Gaps due: A1C KED DIABETIC RETINAL EXAM HCCs Med adherence: Rosuvastatin, Lisinopril, ezetimibe, jardiance, glipizide, metformin LVM/MCM/Updated notes. Reason for Outreach Care Gap/HCC or Scheduling Wellness Visits Care Gaps due: Diabetic Eye Exam HBA1C KED Patient Contacted: Unable or unnecessary to reach patient: Left message [employer] message sent HCC related Updated appointment notes Navigation Signature: Hector Bryan MA March 12, 2025 3:04 PM Allergies As of Date: 03/12/2025 (No Known Allergies) Date Reviewed: 05/30/2024 Reviewed by: Lynne Scott LPN - Fully Assessed Reason for Visit: Population Health Navigation Outreach [3910] Cmt: Félix christianson Prescriptions as of 03/12/2025 - COQ10, LIPOSOMAL UBIQUINOL, ORAL Take 1 capsule by mouth once daily. - SITagliptin (ZITUVIO) 100 mg tablet Take 100 mg by mouth once daily. - rosuvastatin (CRESTOR) 10 mg tablet Take 4 tablets by mouth every evening. - ezetimibe (ZETIA) 10 mg tablet Take 1 tablet by mouth once daily. - lisinopril (ZESTRIL) 10 mg tablet Take 1 tablet by mouth once daily. - glipiZIDE (GLUCOTROL) 10 mg tablet Take 1 tablet by mouth daily before breakfast - aspirin, enteric coated (ASPIRIN, ENTERIC COATED) 81 mg EC tablet Take 81 mg by mouth as needed. - alogliptin (NESINA) 25 mg tab Take 1 tablet by mouth every evening. - empagliflozin (JARDIANCE) 25 mg tablet Take 1 tablet by mouth daily with breakfast. - omega-3/dha/epa/fish oil (FISH OIL HIGH POTENCY ORAL) Take 1 capsule by mouth. 2400 mg taking 2 capsules - Ascorbic Acid (VITAMIN C) 100 mg tablet Take 100 mg by mouth once daily. - GARLIC - Lactobacillus acidophilus (PROBIOTIC) 10 billion cell cap Take by mouth. - metFORMIN (GLUCOPHAGE) 1,000 mg tablet Take 1 tablet by mouth twice daily with meals. ([facility]) - TURMERIC ORAL Take by mouth once daily. - cholecalciferol, vitamin D3, (VITAMIN D3 ORAL) Take 1 tablet by mouth once daily. - ZINC ACETATE ORAL Take 1 tablet by mouth once daily. - vitamin B complex (B COMPLEX 1 ORAL) Take by mouth. - blood sugar diagnostic(ONE TOUCH ULTRA TEST STRIPS) Check blood sugars three times daily or as directed - lancets(ONE TOUCH ULTRASOFT LANCETS) Check blood sugars three times daily or as directed - ONE TOUCH ULTRA SYSTEM KIT Use kit as directed to check blood sugars 3 times daily or as directed - THERAPEUTIC MULTIVITAMIN TAB Take one(1) tablet daily. Meds Comments as of 12/07/2020: December 07, 2020 Denies new medications in the last 30 days. Problem List As Of Date 03/12/2025 Noted Resolved PURE HYPERCHOLESTEROLEM [E78.00] 06/01/2005 Type 2 diabetes mellitus without complication, *06/01/2005 CHOLELITHIASIS NOS [K80.20] 06/01/2005 DIVERTICULOSIS OF COLON W/O BLEED [K57.30] 06/01/2005 OBESITY NOS [E66.9] 06/01/2005 ESOPHAGEAL REFLUX [K21.9] 06/01/2005 Other cardiomyopathies (HCC) [I42.8] 06/01/2005 BENIGN NEOPLASM LG BOWEL [D12.6] 03/08/2006 ABDOMINAL PAIN RLQ [R10.31] 03/08/2006 Chest pain, atypical--probably GI [R07.89] 08/13/2011 Acute gastritis without mention of hemorrhage [*11/26/2011 Daytime sleepiness [R40.0] 02/28/2016 Apnea [R06.81] 02/28/2016 07/08/2016 Non morbid obesity due to excess calories [E66.*02/28/2016 Essential hypertension with goal blood pressure*02/28/2016 Snoring [R06.83] 02/28/2016 VENU (obstructive sleep apnea) [G47.33] 12/17/2016 Uncontrolled type 2 diabetes mellitus with hype*04/16/2021 05/24/2023 Bilateral leg numbness [R20.0] 04/16/2021 Diabetic polyneuropathy associated with type 2 *11/15/2023 Obesity, Class I, BMI 30-34.9 [E66.811] 11/15/2023 Encounter Status:Closed by HECTOR BRYAN on 03/12/25[facility] 02-27-2025 NoteHNO ID: [id number] Author: LULA NOVA LPN Service: ? Author Type: LICENSED NURSE Type: Progress Notes Filed: 02/27/2025 16:35 Note Text: LEFT MESSAGE FOR PATIENT TO CALL OFFICE.[facility]05-23-2025 NoteHNO ID: [id number] Author: ENMANUEL CARROLL MD Service: ? Author Type: Physician Type: Progress Notes Filed: 02/23/2025 19:34 Note Text: [facility]does he need orders from me? I signed these in case needs since did not see UACR results on recent labs scanned in. Okay HgA1C if not [facility] in [facility] 3 months. Can add more labs if patient wants them[facility] Note HNO ID: [id number] Author: IMELDA TEAGUE MA Service: ? Author Type: Manager Commercial Sales Type: Progress Notes Filed: 02/20/2025 14:51 Note Text: POPULATION HEALTH NAVIGATION OUTREACH Action/ Spoke with patient Scheduled follow up Labs sent to PCP Retinal exam outside [facility] sent via [employer]t Reason for Outreach Value Hub Care Gaps due: Follow-up Appointment Diabetic Eye Exam KED Patient Contacted: Spoke to patient/parent/or legal guardian Patient identified by name and : Yes Value Hub actions taken: Patient scheduled/pended orders: Follow-up Appointment KED 04/11/2025 in [facility] with ENMAUNEL CARROLL - Follow up 05/15/2025 in [facility] with ENMANUEL CARROLL [facility] Navigation Signature: Imelda Teague MA February 20, 2025 2:49 [facility]05-20-2025 NoteHNO ID: [id number] Author: ALBERTO DELCID RN Service: ? Author Type: Registered Nurse Type: Progress Notes Filed: 02/20/2025 13:38 Note Text: Value Based Care Coordination Chart Review Provider Action / FYI: Upon review of patient chart, the patient is excluded from Chronic Disease Management Patient is not a candidate for CDM at this time and placed in the following status: Unable to reach Action taken: Patient routed to Navigation Team Address Care Gaps . Alberto Delcid RN February 20, 2025 1:37 [facility]05-20-2025 NotePatient Outreach (AMBCMG) SUDHEER HERNANDEZ ([id number]) 1945 M Date Time Provider Department 02/20/25 [facility] During your visit today, we recorded the following information about you: Alberto Delcid RN 02/20/2025 1:38 PM Signed Value Based Care Coordination Chart Review Provider Action / FYI: Upon review of patient chart, the patient is excluded from Chronic Disease Management Patient is not a candidate for CDM at this time and placed in the following status: Unable to reach Action taken: Patient routed to Navigation Team Address Care Gaps . Alberto Delcid RN February 20, 2025 1:37 PM Imelda Teague MA 02/20/2025 2:51 PM Signed POPULATION HEALTH NAVIGATION OUTREACH Action/FYI Spoke with patient Scheduled follow up Labs sent to PCP Retinal exam outside [facility] sent via [employer]t Reason for Outreach Value Hub Care Gaps due: Follow-up Appointment Diabetic Eye Exam KED Patient Contacted: Spoke to patient/parent/or legal guardian Patient identified by name and : Yes Value Hub actions taken: Patient scheduled/pended orders: Follow-up Appointment KED 04/11/2025 in [facility] with ENMANUEL CARROLL - Follow up 05/15/2025 in [facility] with ENMANUEL CARROLL - Medicare Wellness, [facility] Navigation Signature: Imelda Teague MA February 20, 2025 2:49 PM Imelda Teague MA 02/20/2025 2:51 PM Signed Addended by: IMELDA TEAGUE on: 02/20/2025 02:51 PM Modules accepted: Orders Enmanuel Carroll MD 02/23/2025 7:34 PM Signed [facility]--does he need orders from me? I signed these in case needs since did not see UACR results on recent labs scanned in. Okay HgA1C if not [facility] in past 3 months. Can add more labs if patient wants them Enmanuel Carroll MD 02/23/2025 7:34 PM Signed Addended by: ENMANUEL CARROLL on: 02/23/2025 07:34 PM Modules accepted: Orders Lula Nova LPN 02/27/2025 4:35 PM Signed LEFT MESSAGE FOR PATIENT TO CALL OFFICE. Allergies As of Date: 02/20/2025 (No Known Allergies) Date Reviewed: 05/30/2024 Reviewed by: Lynne Scott LPN - Fully Assessed Reason for Visit: Care Coordination [3491] Visit Diagnosis:Diabetic polyneuropathy associated with type 2 diabetes mellitus (HCC) [E11.42] Order(s):ALBUMIN/CREATININE RATIO, URINE [SQUACR] Order #: [id number] FUTURE HEMOGLOBIN A1C [AGDNY5X] Order #: [id number] FUTURE Prescriptions as of 02/27/2025 - COQ10, LIPOSOMAL UBIQUINOL, ORAL Take 1 capsule by mouth once daily. - SITagliptin (ZITUVIO) 100 mg tablet Take 100 mg by mouth once daily. - rosuvastatin (CRESTOR) 10 mg tablet Take 4 tablets by mouth every evening. - ezetimibe (ZETIA) 10 mg tablet Take 1 tablet by mouth once daily. - lisinopril (ZESTRIL) 10 mg tablet Take 1 tablet by mouth once daily. - glipiZIDE (GLUCOTROL) 10 mg tablet Take 1 tablet by mouth daily before breakfast - aspirin, enteric coated (ASPIRIN, ENTERIC COATED) 81 mg EC tablet Take 81 mg by mouth as needed. - alogliptin (NESINA) 25 mg tab Take 1 tablet by mouth every evening. - empagliflozin (JARDIANCE) 25 mg tablet Take 1 tablet by mouth daily with breakfast. - omega-3/dha/epa/fish oil (FISH OIL HIGH POTENCY ORAL) Take 1 capsule by mouth. 2400 mg taking 2 capsules - Ascorbic Acid (VITAMIN C) 100 mg tablet Take 100 mg by mouth once daily. - GARLIC - Lactobacillus acidophilus (PROBIOTIC) 10 billion cell cap Take by mouth. - metFORMIN (GLUCOPHAGE) 1,000 mg tablet Take 1 tablet by mouth twice daily with meals. ([facility]) - TURMERIC ORAL Take by mouth once daily. - cholecalciferol, vitamin D3, (VITAMIN D3 ORAL) Take 1 tablet by mouth once daily. - ZINC ACETATE ORAL Take 1 tablet by mouth once daily. - vitamin B complex (B COMPLEX 1 ORAL) Take by mouth. - blood sugar diagnostic(ONE TOUCH ULTRA TEST STRIPS) Check blood sugars three times daily or as directed - lancets(ONE TOUCH ULTRASOFT LANCETS) Check blood sugars three times daily or as directed - ONE TOUCH ULTRA SYSTEM KIT Use kit as directed to check blood sugars 3 times daily or as directed - THERAPEUTIC MULTIVITAMIN TAB Take one(1) tablet daily. Meds Comments as of 12/07/2020: December 07, 2020 Denies new medications in the last 30 days. 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 Author Type: Manager Commercial Sales Type: Progress Notes Filed: 12/18/2024 12:06 Note Text: POPULATION HEALTH NAVIGATION OUTREACH Action/FYI VM and Mychart sent Due for follow up Hm due- retinal exam, urine albumin, A1c, influenza Reason for Outreach Care Gap/HCC or Scheduling Wellness Visits Care Gaps due: Follow-up Appointment Diabetic Eye Exam HBA1C KED Flu Vaccine Patient Contacted: Unable or unnecessary to reach patient: Left message [employer] message sent Navigation Signature: Imelda Teague MA December 18, 2024 8:34 [facility]03-17-2025 History of Present illness Narrative* Imelda Teague MA - 12/18/2024 8:33 AM EDT POPULATION HEALTH NAVIGATION OUTREACH Action/FYI VM and Mychart sent Due for follow up Hm due- retinal exam, urine albumin, A1c, influenza Reason for Outreach Care Gap/HCC or Scheduling Wellness Visits Care Gaps due: Follow-up Appointment Diabetic Eye Exam HBA1C KED Flu Vaccine Patient Contacted: Unable or unnecessary to reach patient: Left message [employer] message sent Navigation Signature: Imelda Teague MA December 18, 2024 8:34 AM documented in this encounter[facility] NotePatient Outreach (NETNAV) SUDHEER HERNANDEZ ([id number]) 1945 Bill Date Time Provider Department 12/18/24 IMLEDA TEAGUE During your visit today, we recorded the following information about you: Imelda Teague MA 12/18/2024 12:06 PM Signed POPULATION HEALTH NAVIGATION OUTREACH Action/FYI VM and Mychart sent Due for follow up Hm due- retinal exam, urine albumin, A1c, influenza Reason for Outreach Care Gap/HCC or Scheduling Wellness Visits Care Gaps due: Follow-up Appointment Diabetic Eye Exam HBA1C KED Flu Vaccine Patient Contacted: Unable or unnecessary to reach patient: Left message [employer] message sent Navigation Signature: Imelda Teague MA December 18, 2024 8:34 AM Allergies As of Date: 12/18/2024 (No Known Allergies) Date Reviewed: 05/30/2024 Reviewed by: Lynne Scott LPN - Fully Assessed Reason for Visit: Population Health Navigation Outreach [3910] Cmt: [employer] High Risk Attempt 2 Prescriptions as of 12/18/2024 - COQ10, LIPOSOMAL UBIQUINOL, ORAL Take 1 capsule by mouth once daily. - SITagliptin (ZITUVIO) 100 mg tablet Take 100 mg by mouth once daily. - rosuvastatin (CRESTOR) 10 mg tablet Take 4 tablets by mouth every evening. - ezetimibe (ZETIA) 10 mg tablet Take 1 tablet by mouth once daily. - lisinopril (ZESTRIL) 10 mg tablet Take 1 tablet by mouth once daily. - glipiZIDE (GLUCOTROL) 10 mg tablet Take 1 tablet by mouth daily before breakfast - aspirin, enteric coated (ASPIRIN, ENTERIC COATED) 81 mg EC tablet Take 81 mg by mouth as needed. - alogliptin (NESINA) 25 mg tab Take 1 tablet by mouth every evening. - empagliflozin (JARDIANCE) 25 mg tablet Take 1 tablet by mouth daily with breakfast. - omega-3/dha/epa/fish oil (FISH OIL HIGH POTENCY ORAL) Take 1 capsule by mouth. 2400 mg taking 2 capsules - Ascorbic Acid (VITAMIN C) 100 mg tablet Take 100 mg by mouth once daily. - GARLIC - Lactobacillus acidophilus (PROBIOTIC) 10 billion cell cap Take by mouth. - metFORMIN (GLUCOPHAGE) 1,000 mg tablet Take 1 tablet by mouth twice daily with meals. ([facility]) - TURMERIC ORAL Take by mouth once daily. - cholecalciferol, vitamin D3, (VITAMIN D3 ORAL) Take 1 tablet by mouth once daily. - ZINC ACETATE ORAL Take 1 tablet by mouth once daily. - vitamin B complex (B COMPLEX 1 ORAL) Take by mouth. - blood sugar diagnostic(ONE TOUCH ULTRA TEST STRIPS) Check blood sugars three times daily or as directed - lancets(ONE TOUCH ULTRASOFT LANCETS) Check blood sugars three times daily or as directed - ONE TOUCH ULTRA SYSTEM KIT Use kit as directed to check blood sugars 3 times daily or as directed - THERAPEUTIC MULTIVITAMIN TAB Take one(1) tablet daily. Meds Comments as of 12/07/2020: December 07, 2020 Denies new medications in the last 30 days. 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] 06/01/2005 BENIGN NEOPLASM LG BOWEL [D12.6] 03/08/2006 ABDOMINAL PAIN RLQ [R10.31] 03/08/2006 Chest pain, atypical--probably GI [R07.89] 08/13/2011 Acute gastritis without mention of hemorrhage [*11/26/2011 Daytime sleepiness [R40.0] 02/28/2016 Apnea [R06.81] 02/28/2016 07/08/2016 Non morbid obesity due to excess calories [E66.*02/28/2016 Essential hypertension with goal blood pressure*02/28/2016 Snoring [R06.83] 02/28/2016 VENU (obstructive sleep apnea) [G47.33] 12/17/2016 Uncontrolled type 2 diabetes mellitus with hype*04/16/2021 05/24/2023 Bilateral leg numbness [R20.0] 04/16/2021 Diabetic polyneuropathy associated with type 2 *11/15/2023 Obesity, Class I, BMI 30-34.9 [E66.811] 11/15/2023 Encounter Status:Closed by IMELDA TEAGUE on 12/18/24[facility] 11-27-2024 NoteHNO ID: [id number] Author: IMELDA TEAGUE MA Service: ? Author Type: Manager Commercial Sales Type: Progress Notes Filed: 11/27/2024 14:56 Note Text: POPULATION HEALTH NAVIGATION OUTREACH Action/FYI VM and Mychart sent Due for follow up Hm due- retinal exam, urine albumin, A1c, influenza Reason for Outreach Care Gap/HCC or Scheduling Wellness Visits Care Gaps due: Follow-up Appointment Diabetic Eye Exam HBA1C KED Flu Vaccine Patient Contacted: Unable or unnecessary to reach patient: Left message MyChart message sent Updated appointment notes Navigation Signature: Imelda Teague MA November 27, 2024 2:42 [facility]02-24-2025 History of Present illness Narrative* Imelda Teague MA - 11/27/2024 2:41 PM EST POPULATION HEALTH NAVIGATION OUTREACH Action/FYI VM and Mychart sent Due for follow up Hm due- retinal exam, urine albumin, A1c, influenza Reason for Outreach Care Gap/HCC or Scheduling Wellness Visits Care Gaps due: Follow-up Appointment Diabetic Eye Exam HBA1C KED Flu Vaccine Patient Contacted: Unable or unnecessary to reach patient: Left message [employer] message sent Updated appointment notes Navigation Signature: Imelda Teague MA November 27, 2024 2:42 PM documented in this encounterMer[facility] NotePatient Outreach (NETNAV) SUDHEER HERNANDEZ ([id number]) 1945 Bill Date Time Provider Department 11/27/24 IMELDA TEAGUE During your visit today, we recorded the following information about you: Imelda Teague MA 11/27/2024 2:56 PM Signed POPULATION HEALTH NAVIGATION OUTREACH Action/FYI VM and Mychart sent Due for follow up Hm due- retinal exam, urine albumin, A1c, influenza Reason for Outreach Care Gap/HCC or Scheduling Wellness Visits Care Gaps due: Follow-up Appointment Diabetic Eye Exam HBA1C KED Flu Vaccine Patient Contacted: Unable or unnecessary to reach patient: Left message [employer] message sent Updated appointment notes Navigation Signature: Imelda Teague MA November 27, 2024 2:42 PM Allergies As of Date: 11/27/2024 (No Known Allergies) Date Reviewed: 05/30/2024 Reviewed by: Lynne Scott LPN - Fully Assessed Reason for Visit: Population Health Navigation Outreach [3910] Cmt: [employer] High Risk Attempt 1 Prescriptions as of 11/28/2024 - COQ10, LIPOSOMAL UBIQUINOL, ORAL Take 1 capsule by mouth once daily. - SITagliptin (ZITUVIO) 100 mg tablet Take 100 mg by mouth once daily. - rosuvastatin (CRESTOR) 10 mg tablet Take 4 tablets by mouth every evening. - ezetimibe (ZETIA) 10 mg tablet Take 1 tablet by mouth once daily. - lisinopril (ZESTRIL) 10 mg tablet Take 1 tablet by mouth once daily. - glipiZIDE (GLUCOTROL) 10 mg tablet Take 1 tablet by mouth daily before breakfast - aspirin, enteric coated (ASPIRIN, ENTERIC COATED) 81 mg EC tablet Take 81 mg by mouth as needed. - alogliptin (NESINA) 25 mg tab Take 1 tablet by mouth every evening. - empagliflozin (JARDIANCE) 25 mg tablet Take 1 tablet by mouth daily with breakfast. - omega-3/dha/epa/fish oil (FISH OIL HIGH POTENCY ORAL) Take 1 capsule by mouth. 2400 mg taking 2 capsules - Ascorbic Acid (VITAMIN C) 100 mg tablet Take 100 mg by mouth once daily. - GARLIC - Lactobacillus acidophilus (PROBIOTIC) 10 billion cell cap Take by mouth. - metFORMIN (GLUCOPHAGE) 1,000 mg tablet Take 1 tablet by mouth twice daily with meals. ([facility]) - TURMERIC ORAL Take by mouth once daily. - cholecalciferol, vitamin D3, (VITAMIN D3 ORAL) Take 1 tablet by mouth once daily. - ZINC ACETATE ORAL Take 1 tablet by mouth once daily. - vitamin B complex (B COMPLEX 1 ORAL) Take by mouth. - blood sugar diagnostic(ONE TOUCH ULTRA TEST STRIPS) Check blood sugars three times daily or as directed - lancets(ONE TOUCH ULTRASOFT LANCETS) Check blood sugars three times daily or as directed - ONE TOUCH ULTRA SYSTEM KIT Use kit as directed to check blood sugars 3 times daily or as directed - THERAPEUTIC MULTIVITAMIN TAB Take one(1) tablet daily. Meds Comments as of 12/07/2020: December 07, 2020 Denies new medications in the last 30 days. 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] 06/01/2005 BENIGN NEOPLASM LG BOWEL [D12.6] 03/08/2006 ABDOMINAL PAIN RLQ [R10.31] 03/08/2006 Chest pain, atypical--probably GI [R07.89] 08/13/2011 Acute gastritis without mention of hemorrhage [*11/26/2011 Daytime sleepiness [R40.0] 02/28/2016 Apnea [R06.81] 02/28/2016 07/08/2016 Non morbid obesity due to excess calories [E66.*02/28/2016 Essential hypertension with goal blood pressure*02/28/2016 Snoring [R06.83] 02/28/2016 VENU (obstructive sleep apnea) [G47.33] 12/17/2016 Uncontrolled type 2 diabetes mellitus with hype*04/16/2021 05/24/2023 Bilateral leg numbness [R20.0] 04/16/2021 Diabetic polyneuropathy associated with type 2 *11/15/2023 Obesity, Class I, BMI 30-34.9 [E66.811] 11/15/2023 Encounter Status:Closed by IMELDA TEAGUE on 11/27/24[facility] 05-30-2024 Telephone encounter Note* Telephone Encounter - Lynne Scott LPN - 05/30/2024 7:54 PM EDT Made several calls throughout the day to attempt to get the lab results. Finally did get a fax number to fax request for the results. Patient aware. Lynne Scott LPN [facility]08-27-[facility]24 Miscellaneous Notes* Telephone Encounter - Lynne Scott LPN - 05/30/2024 7:54 PM EDT Made several calls throughout the day to attempt to get the lab results. Finally did get a fax number to fax request for the results. Patient aware. Lynne Scott LPN * Telephone Encounter - Isis Painting LPN - 05/30/2024 8:37 AM EDT Pt calls today to report that he has an appt with pcp for abnormal lab that was done at OR. Pt requesting office get results from OR for appt today. # [phone] Fax# [phone] This nurse tried to call office but was transferred a couple of times and did not reach office needed. [facility] given. Isis Painting LPN documented in this encounterMer[facility]08-27-2024 Instructions* Patient Instructions* Enmanuel Carroll MD - 05/30/2024 3:32 PM EDT -Your PSA level was 11.31 on May 25, indicating a significant increase from previous levels. This could be due to prostate cancer or an enlarged prostate. A biopsy is recommended to rule out cancer and determine the aggressiveness of any potential cancer. - You may consider having an ultrasound before a biopsy to identify any nodules or signs of cancer in the prostate. - You can choose to see a urologist at [facility] or consult with Dr. Augustin Foster, Dr. Chung West, or Dr. Rell Alvarez at [place]. - Please let us know if you experience any new symptoms, such as pain with voiding, unexplained weight loss, fevers, chills, or blood in the urine. [facility] History of Present illness Narrative* Enmanuel Carroll MD - 05/30/2024 3:17 PM EDT This note was created using [employer]. Subjective Sudheer Hernandez is a 78 year old male. Patient presents with: Established Patient: Elevated PSA SUBJECTIVE: Sudheer Hernandez is a 78 year old year old gentleman here today for follow up appointment for review of medical conditions: elevated PSA. [facility]. PSA was 11.31--checked by urologist Patient is a 78-year-old male presenting today to discuss recent PSA lab results. Patient had a PSAtest done last , with a result of 11.31. He was informed by his urologist that a biopsy might be necessary, but he is hesitant to proceed with the biopsy. Patient is unsure if the biopsy would be performed using a needle or another method. He is considering having any further procedures done locally in [place] rather than traveling to [place]. Patient denies dysuria, hematuria, unexplained weight loss, fevers, or chills. He reports that while his urinary stream is sometimes slow, he is able to empty his bladder completely, and this has notchanged in the past year. PAST MEDICAL HISTORY No date: Abdominal pain, right lower quadrant No date: Benign neoplasm of colon 06/01/2005: Calculus of gallbladder without mention of cholecystitis or obstruction No date: Diaphragmatic hernia without mention of obstruction or gangrene 06/01/2005: Diverticulosis of colon (without mention of hemorrhage) No date: Diverticulosis of colon (without mention of hemorrhage) 06/01/2005: Esophageal reflux 06/01/2005: Obesity, unspecified 06/01/2005: Other primary cardiomyopathies No date: Other specified visual disturbances 06/01/2005: Pure hypercholesterolemia No date: Snoring 06/01/2005: Type II or unspecified type diabetes mellitus without mention of complication, not stated as uncontrolled 06/01/2005: Unspecified essential hypertension Current Outpatient Medications Medication Sig COQ10, LIPOSOMAL UBIQUINOL, ORAL Take 1 capsule by mouth once daily. SITagliptin (ZITUVIO) 100 mg tablet Take 100 mg by mouth once daily. rosuvastatin (CRESTOR) 10 mg tablet Take 4 tablets by mouth every evening. ezetimibe (ZETIA) 10 mg tablet Take 1 tablet by mouth once daily. lisinopril (ZESTRIL) 10 mg tablet Take 1 tablet by mouth once daily. glipiZIDE (GLUCOTROL) 10 mg tablet Take 1 tablet by mouth daily before breakfast aspirin, enteric coated (ASPIRIN, ENTERIC COATED) 81 mg EC tablet Take 81 mg by mouth as needed. empagliflozin (JARDIANCE) 25 mg tablet Take 1 tablet by mouth daily with breakfast. omega-3/dha/epa/fish oil (FISH OIL HIGH POTENCY ORAL) Take 1 capsule by mouth. 2400 mg taking 2 capsules Ascorbic Acid (VITAMIN C) 100 mg tablet Take 100 mg by mouth once daily. Lactobacillus acidophilus (PROBIOTIC) 10 billion cell cap Take by mouth. metFORMIN (GLUCOPHAGE) 1,000 mg tablet Take 1 tablet by mouth twice daily with meals. ([facility]) TURMERIC ORAL Take by mouth once daily. cholecalciferol, vitamin D3, (VITAMIN D3 ORAL) Take 1 tablet by mouth once daily. ZINC ACETATE ORAL Take 1 tablet by mouth once daily. vitamin B complex (B COMPLEX 1 ORAL) Take by mouth. blood sugar diagnostic(ONE TOUCH ULTRA TEST STRIPS) Check blood sugars three times daily or as directed lancets(ONE TOUCH ULTRASOFT LANCETS) Check blood sugars three times daily or as directed ONE TOUCH ULTRA SYSTEM KIT Use kit as directed to check blood sugars 3 times daily or as directed THERAPEUTIC MULTIVITAMIN TAB Take one(1) tablet daily. alogliptin (NESINA) 25 mg tab Take 1 tablet by mouth every evening. (Patient not taking: Reported on 05/09/2024) GARLIC (Patient not taking: Reported on 05/30/2024) No current facility-administered medications for this visit. Review of Systems Objective BP 136/78 Pulse 76 Temp 36.4 C (97.6 F) Resp 16 Wt 100 kg (220 lb 7.4 oz) SpO2 96% BMI 30.36 kg/m Physical Exam Constitutional: Appearance: Normal appearance. HENT: Head: Normocephalic. Eyes: Conjunctiva/sclera: Conjunctivae normal. Pulmonary: Effort: Pulmonary effort is normal. Neurological: Mental Status: He is alert. Psychiatric: Mood and Affect: Mood normal. Behavior: Behavior normal. Thought Content: Thought content normal. Judgment: Judgment normal. Assessment and Plan # Elevated PSA, between 10 and less than 20 ng/ml - Recent PSA level on May 25 was 11.31 ng/ml, showing an upward trend from previous levels. - Discussed potential causes for elevated PSA, including prostate cancer and benign prostatic hyperplasia (BPH). - Educated patient on the importance of ruling out cancer due to the significant increase in PSA levels. - Explained the biopsy procedure, including its role in determining the presence and aggressivenessof cancer. - Discussed alternative diagnostic options such as ultrasound and MRI. - Patient expressed reluctance to undergo a biopsy. - Provided names and contact information for urologists Dr. Augustin Foster, Dr. Chung West, and Dr. Rell Alvarez in [place]. - Placed a consult order for urology. - Advised patient to follow up with a urologist to discuss further diagnostic and treatment options. Enmanuel Carroll MD documented in this [facility] Telephone encounter Note * Telephone Encounter - Isis Painting LPN - 05/30/2024 8:37 AM EDT Pt calls today to report that he has an appt with pcp for abnormal lab that was done at OR. Pt requesting office get results from OR for appt today. # [phone] Fax# [phone] This nurse tried to call office but was transferred a couple of times and did not reach office needed. [facility] at fax number given. Isis Painting LPN [facility]08-26-[facility] Telephone encounter Note* Telephone Encounter - Deborah Marquez RN - 05/29/2024 4:56 PM EDT Patient calling with request for appointment to discuss elevated PSA and options with PCP. Patient had test done @ [facility] about one week ago. He will call and ask them to fax lab result to PCP office. He says last year his PSA was in the range of 6 and this year it is 11. He was told he should have a biopsy. He has not seen a Urologist in the past. He does not want a referral at this time. Prefers to discuss with PCP. Appointment scheduled per request. Deborah Marquez RN [facility]08-26-[facility] Miscellaneous Notes* Telephone Encounter - Deborah Marquez RN - 05/29/2024 4:56 PM EDT Patient calling with request for appointment to discuss elevated PSA and options with PCP. Patient had test done @ [facility] about one week ago. He will call and ask them to fax lab result to PCP office. He says last year his PSA was in the range of 6 and this year it is 11. He was told he should have a biopsy. He has not seen a Urologist in the past. He does not want a referral at this time. Prefers to discuss with PCP. Appointment scheduled per request. Deborah Marquez RN documented in this encounterMer[facility]08-06-2024 Instructions* Patient Instructions* Enmanuel Carroll MD - 05/09/2024 10:35 AM EDT Alpha lipoic acid 300 to 600mg per day could help with neuropathy--this is over the counter (OTC). -Continue monitoring your blood sugar levels and aim to keep them between 100- 150 mg/dL to avoid hypoglycemia. - Continue taking your current diabetes medications as [facility] by the [facility], including Jardiance, sitagliptin, and metformin. - If you experience any more low blood sugars, consider holding the glipizide and see if your levels stabilize. If needed, you can discuss adjusting the dose with your healthcare provider. - Maintain a balanced diet, including carbohydrates and proteins, and consider increasing your water intake to at least 8 cups per day. - Continue monitoring your blood pressure and keep it well-controlled. - Consider increasing your intake of iron-rich foods or taking an iron supplement to address your low iron levels. - Consider taking alpha lipoic acid (300-600 mg per day) to help with neuropathy symptoms. This is available [id number]. - Continue wearing your custom-fit support socks to help with swelling in your legs. - Continue with your regular check-ups and follow-up appointments as [facility] by the [facility]. Screening schedule The following prevention plan is recommended: RSV Vaccine(1 - 1-dose 60+ series) Never done BP Controlled (<130/80) due on 06/24/2019 Diabetic Foot Exam due on 05/09/2021 Dilated Retinal Exam due on 09/22/2022 Urine Albumin:Creatinine Ratio due on 01/06/2024 HbA1C due on 05/15/2024 Influenza Vaccine(1) due on 06/04/2024 WHAT YOU CAN DO TO PREVENT FALLS Many falls can be prevented. By making some changes, you can lower your chances of falling. Four things YOU can do to prevent falls for you* and your caregiver 1. Begin a regular exercise program Exercise is one of the most important ways to lower your chances of falling. It makes you stronger and helps you feel better. Exercises that improve balance and coordination (like Sean Chi) are the most helpful. Lack of exercise leads to weakness and increases your chances of falling. Ask your doctor or health care provider about the best type of exercise program for you. 2. Have your health care provider review your medicines Have your doctor or pharmacist review all the medicines you take, even vomi-[id number] medicines. As you get older, the way medicines work in your body can change. Some medicines, or combinations of medicines, can make you sleepy or dizzy andcan cause you to fall. 3. Have your vision checked Have your eyes checked by an eye doctor at least once a year. You may be wearing the wrong glasses or have a condition like glaucoma or cataracts that limits your vision. Poor vision can increase your chances of falling. 4. Make your home safer About half of all falls happen at home. To make your home safer: Remove things you can trip over (like papers, books, clothes, and shoes) from stairs and places where you walk. Remove small throw rugs or use double-sided tape to keep the rugs from slipping. Keep items you use often in cabinets you can reach easily without using a step stool. Have grab bars put in next to your toilet and in the tub or shower. Use non-slip mats in the bathtub and on shower floors. Improve the lighting in your home. As you get older, you need brighter lights to see well. Hang light-weight curtains or shades to reduce glare. Have handrails and lights put in on all staircases. Wear shoes both inside and outside the house. Avoid going barefoot or wearing slippers. For more information, contact: Centers for Disease Control and Prevention www.cdc.gov/injury * This information may not apply if you have certain medical conditions. documented in this encounterMer[facility]08-06-20[facility] History of Present illness Narrative* Enmanuel Carroll MD - 05/09/2024 9:57 AM EDT Images from the original note were not included. This note was created using [employer]. Subjective Sudheer Hernandez is a 78 year old male. Patient presents with: Medicare Wellness Exam SUBJECTIVE: Sudheer Hernandez is a 78 year old year old gentleman here today for Medicare Annual Wellness Visit and follow up appointment for review of medical conditions. Patient is a 78-year-old male with a history of diabetes mellitus type 2, presenting for a wellnessvisit and regular checkup. Patient has been avoiding sugar for almost a month, except for two instances where he consumed orange juice and a donut due to low blood sugar episodes. He is currently taking glipizide in the morning, Jardiance in the morning, and sitagliptin daily. He recently stopped taking glipizide at night about a week ago due to low blood sugar readings, which have since improved. His blood sugar readings are now running "pretty good," with a recent reading of 124 in the morning and 102 at night. His average blood sugar readings over the last 7 days is 118, over the last 14 days is 125, and over the last 30 days is 114. He has experienced low blood sugar readings as low as 65, which prompted him to consume orange juice. He denies feeling shaky during these episodes but reports feeling "a little bit light-headed." He inquires about the possibility of reducing or discontinuing glipizide. Patient has a history of anemia and reports a recent low iron level of 11.9, which prevented him from donating blood. He does not take extra iron supplements but consumes iron-rich foods such as nuts. He inquires about the necessity of taking iron supplements. Patient is currently taking rosuvastatin 10 mg and ezetimibe 10 mg for cholesterol management. He reports a history of higher doses of rosuvastatin but was reduced to 10 mg due to intolerance. He inquires about the necessity of taking vitamin D and magnesium supplements. Patient has a history of hypertension and is currently taking lisinopril 10 mg. He reports good blood pressure readings and inquires about the necessity of reducing the lisinopril dose. Patient has a history of neuropathy and reports numbness in his legs. He inquires about the possibility of taking alpha-lipoic acid for neuropathy. He denies muscle cramping. PAST MEDICAL HISTORY No date: Abdominal pain, right lower quadrant No date: Benign neoplasm of colon 06/01/2005: Calculus of gallbladder without mention of cholecystitis or obstruction No date: Diaphragmatic hernia without mention of obstruction or gangrene 06/01/2005: Diverticulosis of colon (without mention of hemorrhage) No date: Diverticulosis of colon (without mention of hemorrhage) 06/01/2005: Esophageal reflux 06/01/2005: Obesity, unspecified 06/01/2005: Other primary cardiomyopathies No date: Other specified visual disturbances 06/01/2005: Pure hypercholesterolemia No date: Snoring 06/01/2005: Type II or unspecified type diabetes mellitus without mention of complication, not stated as uncontrolled 06/01/2005: Unspecified essential hypertension Current Outpatient Medications Medication Sig SITagliptin (ZITUVIO) 100 mg tablet Take 100 mg by mouth once daily. aspirin, enteric coated (ASPIRIN, ENTERIC COATED) 81 mg EC tablet Take 81 mg by mouth as needed. empagliflozin (JARDIANCE) 25 mg tablet Take 1 tablet by mouth daily with breakfast. omega-3/dha/epa/fish oil (FISH OIL HIGH POTENCY ORAL) Take 1 capsule by mouth. 2400 mg taking 2 capsules Ascorbic Acid (VITAMIN C) 100 mg tablet Take 100 mg by mouth once daily. Lactobacillus acidophilus (PROBIOTIC) 10 billion cell cap Take by mouth. metFORMIN (GLUCOPHAGE) 1,000 mg tablet Take 1 tablet by mouth twice daily with meals. ([facility]) TURMERIC ORAL Take by mouth once daily. ZINC ACETATE ORAL Take 1 tablet by mouth once daily. vitamin B complex (B COMPLEX 1 ORAL) Take by mouth. blood sugar diagnostic(ONE TOUCH ULTRA TEST STRIPS) Check blood sugars three times daily or as directed lancets(ONE TOUCH ULTRASOFT LANCETS) Check blood sugars three times daily or as directed ONE TOUCH ULTRA SYSTEM KIT Use kit as directed to check blood sugars 3 times daily or as directed THERAPEUTIC MULTIVITAMIN TAB Take one(1) tablet daily. rosuvastatin (CRESTOR) 10 mg tablet Take 4 tablets by mouth every evening. ezetimibe (ZETIA) 10 mg tablet Take 1 tablet by mouth once daily. lisinopril (ZESTRIL) 10 mg tablet Take 1 tablet by mouth once daily. glipiZIDE (GLUCOTROL) 10 mg tablet Take 1 tablet by mouth daily before breakfast alogliptin (NESINA) 25 mg tab Take 1 tablet by mouth every evening. (Patient not taking: Reported on 05/09/2024) GARLIC (Patient not taking: Reported on 05/09/2024) thiamine (VITAMIN B1) 100 mg tablet Take 100 mg by mouth once daily. (Patient not taking: Reported on 05/09/2024) cholecalciferol, vitamin D3, (VITAMIN D3 ORAL) Take 1 tablet by mouth once daily. (Patient not taking: Reported on 05/09/2024) No current facility-administered medications for this visit. Review of Systems Objective BP 128/72 Pulse 71 Temp (!) 35.6 C (96.1 F) Resp 16 Ht 181.5 cm (5' 11.46") Wt 97.6 kg (215 lb 2.7 oz) SpO2 97% BMI 29.63 kg/m Last 5 Encounter Wt Readings: Date: Wt: 05/09/2024 97.6 kg (215 lb 2.7 oz) 02/25/2024 105.3 kg (232 lb 2.3 oz) 01/18/2024 100.2 kg (221 lb) 11/15/2023 100.7 kg (222 lb) 04/27/2023 100 kg (220 lb 6.4 oz) No waist measurement recorded Estimated body mass index is 29.63 kg/m as calculated from the following: Height as of this encounter: 181.5 cm (5' 11.46"). Weight as of this encounter: 97.6 kg (215 lb 2.7 oz). Last 5 Encounter BP Readings: Date: BP: 05/09/2024 128/72 02/25/2024 138/68 01/18/2024 116/73 11/15/2023 114/72 10/20/2023 120/70 Physical Exam Vitals reviewed. Constitutional: Appearance: Normal appearance. HENT: Head: Normocephalic. Right Ear: Tympanic membrane, ear canal and external ear normal. Left Ear: Tympanic membrane, ear canal and external ear normal. Mouth/Throat: Mouth: Mucous membranes are moist. Pharynx: Oropharynx is clear. Eyes: Conjunctiva/sclera: Conjunctivae normal. Pupils: Pupils are equal, round, and reactive to light. Cardiovascular: Rate and Rhythm: Normal rate and regular rhythm. Heart sounds: Normal heart sounds. Pulmonary: Effort: Pulmonary effort is normal. Breath sounds: Normal breath sounds. Musculoskeletal: Right lower leg: No edema. Left lower leg: No edema. Comments: Custom stockings with zippers. Swelling controlled Skin: General: Skin is warm and dry. Neurological: General: No focal deficit present. Mental Status: He is alert and oriented to person, place, and time. Psychiatric: Mood and Affect: Mood normal. Behavior: Behavior normal. Thought Content: Thought content normal. Judgment: Judgment normal. Latest Ref Rn 09/04/2022 04/12/2023 11/15/2023 Protein, Total 6.3 - 8.0 g/dL 7.5 7.2 6.6 Albumin 3.9 - 4.9 g/dL 4.3 4.2 4.3 Calcium 8.5 - 10.2 mg/dL 9.6 9.6 9.4 Bilirubin, Total 0.2 - 1.3 mg/dL 0.5 0.4 0.2 Alkaline Phosphatase 38 - 113 U/L 95 65 59 AST 14 - 40 U/L 18 10 (L) 14 ALT 10 - 54 U/L 17 9 (L) 13 Glucose 74 - 99 mg/dL 183 (H) 190 (H) 190 (H) BUN 9 - 24 mg/dL 23 22 27 (H) Creatinine 0.73 - 1.22 mg/dL 1.22 1.18 1.27 (H) Sodium 136 - 144 mmol/L 140 137 138 Potassium 3.7 - 5.1 mmol/L 4.9 4.6 4.4 Chloride 97 - 105 mmol/L 106 (H) 105 104 CO2 22 - 30 mmol/L 23 20 (L) 22 Anion Gap 9 - 18 mmol/L 11 12 12 eGFR >=60 mL/min/1.73m 62 64 58 (L) WBC 3.70 - 11.00 k/uL 6.18 5.79 6.00 RBC 4.20 - 6.00 m/uL 5.66 5.30 5.06 Hemoglobin 13.0 - 17.0 g/dL 13.5 13.6 12.5 (L) Hematocrit 39.0 - 51.0 % 43.8 43.3 40.2 MCV 80.0 - 100.0 fL 77.4 (L) 81.7 79.4 (L) MCH 26.0 - 34.0 pg 23.9 (L) 25.7 (L) 24.7 (L) MCHC 30.5 - 36.0 g/dL 30.8 31.4 31.1 RDW-CV 11.5 - 15.0 % 17.6 (H) 15.5 (H) 16.0 (H) Platelet Count 150 - 400 k/uL 301 238 244 MPV 9.0 - 12.7 fL 9.1 9.5 9.2 Absolute nRBC <0.01 k/uL <0.01 <0.01 <0.01 Cholesterol, Total <200 mg/dL 144 236 (H) 121 Triglyceride <150 mg/dL 75 144 160 (H) HDL Cholesterol >39 mg/dL 36 (L) 39 (L) 38 (L) Non HDL Cholesterol <130 mg/dL 108 197 (H) 83 Fasting Time hrs 12 15 10 VLDL Cholesterol <30 mg/dL 15 29 32 (H) TC:HDL Ratio <5.10 4.00 6.05 (H) 3.18 LDL Cholesterol <100 mg/dL 93 168 (H) 51 LDL:HDL Ratio <2.54 2.58 (H) 4.31 (H) 1.34 Creatinine, Ur Random (UCRR) 20.0 - 300.0 mg/dL 77.5 Albumin, Urine Random mg/L <12.0 Albumin/Creat Ratio <30 mg/g <15 Hemoglobin A1C 4.3 - 5.6 % 7.7 (H) 7.6 (H) 7.3 (H) Estimated Average Glucose mg/dL 174 171 163 Legend: (H) High (L) Low Assessment and Plan Sudheer Hernandez is a 78 year old male here for a Medicare wellness visit. Medicare Health Risk Assessment General Health Good Exercise: Minutes/Day 0 min Exercise: Days/Week 3 days Alcohol: Daily Use Monthly or less Alcohol: Drinks/Day 1 or 2 Alcohol: 6 or more drinks Never Feel off balance Yes Concerns: Teeth/Dentures No Concerns: Sexual function Yes Troubled by feelings None of the above Frequency: Eating healthy diet Nearly every day ADLs requiring help None of the above Safety precautions in home/vehicle Yes Smoke, vape, chews tobacco No Difficulty hearing No Difficulty seeing No Current Providers Specialists: I have reviewed specialist-related care of the patient in the medical record. Outside specialists seen: Sees providers at [facility] Medical/Family history review Reviewed and updated problem list, medical/surgical/family/social history, medications, and allergies. Opioid use review Opioid Medications (last 90 days) No data to display Anxiety/Depression screening PHQ-2 Score: 0 (Lower risk for depression) Recommendation: no further intervention at this time Cognitive screening Mini Cog Score: 5 Cognitive screening reviewed and No further action needed (score 3-5). Functional Observation Was the patient's Timed Up & Go test unsteady or ? 12 seconds? No Advance Care Planning Surrogate decision maker and/or advance care plan documented Measurements BP 128/72 Pulse 71 Temp (!) 35.6 C (96.1 F) Resp 16 Ht 181.5 cm (5' 11.46") Wt 97.6 kg (215 lb 2.7 oz) SpO2 97% BMI 29.63 kg/m Vision Screening: Follows with optometry/ophthalmology Assessment/Plan Medicare annual wellness visit, subsequent (Z00.00) - Counseled on healthy diet and regular exercise - Fall avoidance information provided - Personalized prevention plan provided Medicare annual wellness visit, subsequent: - Conducted a comprehensive wellness visit including a review of current medications, medical history, and recent lab results. - Physical examination performed: heart rate regular, lungs clear, no edema noted, normal abdominalsounds, and no significant findings in ear, nose, and throat examination. - Discussed the importance of maintaining a balanced diet, regular exercise, and routine follow-ups. - Scheduled follow-up appointment in six months for regular check-up. Diabetic polyneuropathy associated with type 2 diabetes mellitus (HCC): - Blood glucose levels have improved with current regimen: Glipizide 5 mg daily, Jardiance 10 mg daily, and Sitagliptin 100 mg daily. - Recent blood glucose readings: 124 mg/dL (morning), 102 mg/dL (evening), with an average of 118 mg/dL over the last 7 days. - Patient has experienced hypoglycemic episodes with blood glucose levels as low as 65 mg/dL. - Advised to monitor blood glucose levels closely and to reduce Glipizide dosage if hypoglycemia persists. - Educated on the importance of protein intake with carbohydrates to prevent blood sugar spikes. - Recommended alpha-lipoic acid 300-600 mg daily to help manage neuropathy symptoms. - Patient to continue current medications and dietary modifications, with a focus on reducing carbohydrate intake. - Follow-up in six months to reassess blood glucose control and neuropathy symptoms. Essential hypertension with goal blood pressure less than 130/80: - Blood pressure readings: 128/72 mmHg (today), 122/64 mmHg (recent). - Current medication: Lisinopril 10 mg daily. - Discontinued hydrochlorothiazide due to well-controlled blood pressure. - Advised to continue monitoring blood pressure at home and report any significant changes. - Follow-up in six months to reassess blood pressure control. Mixed hyperlipidemia: - Recent lab results: LDL 57 mg/dL, HDL 44 mg/dL, triglycerides 85 mg/dL, total cholesterol 115 mg/dL. - Current medications: Rosuvastatin 10 mg daily, Ezetimibe 10 mg daily. - Patient tolerating current regimen well with no significant side effects. - Advised to continue current medications and follow-up with lipid panel in July. Anemia, unspecified type: - Recent hemoglobin level: 11.9 g/dL (April 06). - Patient advised to increase dietary iron intake through iron-rich foods such as cream of wheat, liver, and beans. - Provided educational material on iron-rich foods via email. - Follow-up in July to reassess hemoglobin levels and overall iron status. Screening for depression: - Depression screening performed; patient denies symptoms of depression. - No further action required at this time. Encounter for screening examination for other mental health and behavioral disorders: - Anxiety screening performed; patient denies symptoms of anxiety. - No further action required at this time. Encounter for immunization: - Reviewed immunization history: patient has received flu and RSV vaccines last fall, and Shingrix vaccine. - No additional immunizations required at this time. Enmanuel Carroll MD documented in this encounter[facility] History of Present illness Narrative* Adela Arellano APRN.CONVENTIONS RESERVATIONIST - 02/25/2024 3:33 PM EDT CC: Patient presents with: Cough: Runny nose and congestion x1 day. HPI: Sudheer Hernandez is a 78 year old male who presents to the office with complaint of head congestion, cough, nonproductive, and rhinorrhea for the past day. Symptoms are staying the same. Associated symptoms includes nasal congestion. Denies sore throat, fever, ear pain, wheezing, dyspnea, nausea, vomiting , and diarrhea. Treatments tried include nothing so far. with no relief of symptoms. Sick contacts: unknown. History of asthma, frequent episodes of bronchitis, chronic bronchitis, bronchiectasis or COPD: No Smoker: No Seasonal/environmental allergies: No The ROS is otherwise negative. The patient's pmh, medications, allergies, and past visits are reviewed. PHYSICAL EXAM: BP 138/68 Pulse 62 Temp 36.9 C (98.5 F) Resp 18 Wt 105.3 kg (232 lb 2.3 oz) SpO2 97% BMI 32.38 kg/m General appearance: alert, cooperative, pleasant, in no acute distress Head: Normocephalic Eyes: EOM's intact, conjunctiva pink and moist, no icterus, sclera white, non-injected Ears: Right ear: External ear/canal- Normal, TM - clear with good landmarks. Left ear: External ear/canal- Normal, TM - clear with good landmarks Oropharynx:moist without lesions, No erythema, exudates or tonsillar hypertrophy. Heart: Negative. RRR without obvious murmur, gallop, or rubs. No ectopy. Lungs: clear to auscultation, without rales or wheeze, good air exchange PAST MEDICAL HISTORY Diagnosis Date Abdominal pain, right lower quadrant Benign neoplasm of colon Calculus of gallbladder without mention of cholecystitis or obstruction 06/01/2005 Diaphragmatic hernia without mention of obstruction or gangrene Diverticulosis of colon (without mention of hemorrhage) 06/01/2005 Diverticulosis of colon (without mention of hemorrhage) Esophageal reflux 06/01/2005 Obesity, unspecified 06/01/2005 Other primary cardiomyopathies 06/01/2005 Other specified visual disturbances Pure hypercholesterolemia 06/01/2005 Snoring Type II or unspecified type diabetes mellitus without mention of complication, not stated as uncontrolled 06/01/2005 Unspecified essential hypertension 06/01/2005 PAST SURGICAL HISTORY Procedure Laterality Date COLONOSCOPY - DIAGNOSTIC 02/24/2001 COLONOSCOPY FLX DX W/COLLJ SPEC WHEN PFRMD 05/28/2011 Colonoscopy COLONOSCOPY FLX DX W/COLLJ SPEC WHEN PFRMD 08/31/2016 Colonoscopy COLONOSCOPY SCREENING 2021 COLONOSCOPY W/BIOPSY SINGLE/MULTIPLE 03/08/2006 ECHO 11/04/2001 ESOPHAGOGASTRODUODENOSCOPY TRANSORAL DIAGNOSTIC 11/26/2011 EGD RT/LT HEART CATHETERS 12/03/1999 CC & CA, R & L heart ; "mild CAD" SKIN GRAFT PROCEDURE 10/04/1966 Right leg, shot in [employer] STRESS TEST W/PHY SUPERVISION 10/04/1999 ALLERGIES Patient has no known allergies. MEDICATIONS aspirin, enteric coated (ASPIRIN, ENTERIC COATED) 81 mg EC tablet Take 81 mg by mouth as needed. ezetimibe (ZETIA) 10 mg tablet 10 mg. glipiZIDE (GLUCOTROL) 10 mg tablet Take 1 tablet by mouth daily before breakfast AND 0.5-1 tablets daily before dinner. alogliptin (NESINA) 25 mg tab Take 1 tablet by mouth every evening. rosuvastatin (CRESTOR) 40 mg tablet Take 40 mg by mouth every evening. empagliflozin (JARDIANCE) 25 mg tablet Take 1 tablet by mouth daily with breakfast. omega-3/dha/epa/fish oil (FISH OIL HIGH POTENCY ORAL) Take 1 capsule by mouth. 2400 mg taking 2 capsules Ascorbic Acid (VITAMIN C) 100 mg tablet Take 100 mg by mouth once daily. GARLIC Lactobacillus acidophilus (PROBIOTIC) 10 billion cell cap Take by mouth. metFORMIN (GLUCOPHAGE) 1,000 mg tablet Take 1 tablet by mouth twice daily with meals. ([facility]) thiamine (VITAMIN B1) 100 mg tablet Take 100 mg by mouth once daily. TURMERIC ORAL Take by mouth once daily. cholecalciferol, vitamin D3, (VITAMIN D3 ORAL) Take 1 tablet by mouth once daily. ZINC ACETATE ORAL Take 1 tablet by mouth once daily. vitamin B complex (B COMPLEX 1 ORAL) Take by mouth. lisinopril-hydrochlorothiazide (PRINZIDE,ZESTORETIC) 20-12.5 mg per tablet Take 0.5 tablets by mouth once daily. [facility] once daily blood sugar diagnostic(ONE TOUCH ULTRA TEST STRIPS) Check blood sugars three times daily or as directed lancets(ONE TOUCH ULTRASOFT LANCETS) Check blood sugars three times daily or as directed ONE TOUCH ULTRA SYSTEM KIT Use kit as directed to check blood sugars 3 times daily or as directed THERAPEUTIC MULTIVITAMIN TAB Take one(1) tablet daily. FAMILY HISTORY Problem Relation Age of Onset Heart Father Cardiomyopathy Diabetes Sister Lipids Mother Hypercholesteremia/GI problems Heart disease Brother Social History Tobacco Use Smoking status: Never Smokeless tobacco: Never Vaping Use Vaping Use: Never used Substance Use Topics Alcohol use: Yes Comment: rarely Drug use: No ASSESSMENT/PLAN: 1. URI, acute - ICD9: 465.9, ICD10: J06.9 - COVID & INFLUENZA A/B & RSV NAAT, ROUTINE OTC meds for symptoms. Potential red flag symptoms discussed with the patient. Reviewed appropriateaction plan to take if red flag symptoms occur. Patient agreeable to treatment plan. Adela Arellano APRN.CADEN documented in this encounterMer[facility]-16-[facility] History of Present illness Narrative* Talon Ruiz MD - 01/18/2024 12:49 PM EDT Subjective: Patient is status post shave biopsies of 2 skin lesions on his left flank. He still hasbeen having some itching on the one that is on the lateral aspect but not the one on the back he has tried some steroid creams but still been irritating towards him. Objective:Blood pressure 116/73, pulse 74, height 180.3 cm (5' 11"), weight 100.2 kg (221 lb). Both the scars on the left flank have healed up quite nicely but now there is appearance of more irritation around the lateral aspect which was not there the last time I saw him on 10/20/2023. Almost as if there is reaction to him using the hydrocortisone cream with Benadryl. Assessment:Itching (primary encounter diagnosis) Rash Plan: I think is best we get a consultation with Dr. Madrigal for evaluation of this area. Pathology report came back as an inflamed seborrheic keratosis but no other pathology. documented in this encounterMer[facility]02-12-2024 History of Present illness Narrative* Susannah Nickerson APRN.CONVENTIONS RESERVATIONIST - 11/15/2023 1:54 PM EST SUBJECTIVE Sudheer Hernandez is a 78 year old male here today for a check up on his medical problems. Chief Complaint Patient presents with: 6 month follow up HPI Sudheer Hernandez is a 78 year old male. Here today for a routine follow up. [facility]ing with [facility]. Sleep is okay. Blood sugars average around 150's. No low blood sugars. Taking his medications. Had labs before visit today. Depression Screening PHQ-2 Score 11/15/2023 0 Depression screening tool completed and reviewed. Based on score and interview, patient is not at risk for depression. Screening tool discussed with patient, and I recommended no further interventionat this time. His medications were reviewed today and his list is now up to date. Medications Current Outpatient Medications Medication Sig ezetimibe (ZETIA) 10 mg tablet 10 mg. glipiZIDE (GLUCOTROL) 10 mg tablet Take 1 tablet by mouth daily before breakfast AND 0.5-1 tablets daily before dinner. alogliptin (NESINA) 25 mg tab Take 1 tablet by mouth every evening. rosuvastatin (CRESTOR) 40 mg tablet Take 40 mg by mouth every evening. empagliflozin (JARDIANCE) 25 mg tablet Take 1 tablet by mouth daily with breakfast. omega-3/dha/epa/fish oil (FISH OIL HIGH POTENCY ORAL) Take 1 capsule by mouth. 2400 mg taking 2 capsules Ascorbic Acid (VITAMIN C) 100 mg tablet Take 100 mg by mouth once daily. GARLIC Lactobacillus acidophilus (PROBIOTIC) 10 billion cell cap Take by mouth. metFORMIN (GLUCOPHAGE) 1,000 mg tablet Take 1 tablet by mouth twice daily with meals. ([facility]) thiamine (VITAMIN B1) 100 mg tablet Take 100 mg by mouth once daily. TURMERIC ORAL Take by mouth once daily. cholecalciferol, vitamin D3, (VITAMIN D3 ORAL) Take 1 tablet by mouth once daily. ZINC ACETATE ORAL Take 1 tablet by mouth once daily. vitamin B complex (B COMPLEX 1 ORAL) Take by mouth. lisinopril-hydrochlorothiazide (PRINZIDE,ZESTORETIC) 20-12.5 mg per tablet Take 0.5 tablets by mouth once daily. Taking [facility] once daily blood sugar diagnostic(ONE TOUCH ULTRA TEST STRIPS) Check blood sugars three times daily or as directed lancets(ONE TOUCH ULTRASOFT LANCETS) Check blood sugars three times daily or as directed ONE TOUCH ULTRA SYSTEM KIT Use kit as directed to check blood sugars 3 times daily or as directed THERAPEUTIC MULTIVITAMIN TAB Take one(1) tablet daily. No current facility-administered medications for this visit. ALLERGIES No Known Allergies ACTIVE PROBLEM LIST Diabetic Polyneuropathy Associated With Type 2 Diabetes Mellitus (Hcc) - 11/15/2023 Obesity, Class I, Bmi 30-34.9 - 11/15/2023 Bilateral Leg Numbness - 04/16/2021 Comment: Intermittent; see if resolves with better glycemic control. Can try alpha lipoic acid Venu (Obstructive Sleep Apnea) - 12/17/2016 Daytime Sleepiness - 02/28/2016 Non Morbid Obesity Due to Excess Calories - 02/28/2016 Essential Hypertension With Goal Blood Pressure Less Than 130/80 - 02/28/2016 Snoring - 02/28/2016 Acute Gastritis Without Mention of Hemorrhage - 11/26/2011 Chest pain, atypical--probably GI - 08/13/2011 Comment: sounds like esophageal spasms Benign Neoplasm of Colon - 03/08/2006 Abdominal Pain, Right Lower Quadrant - 03/08/2006 Pure Hypercholesterolemia - 06/01/2005 Type 2 Diabetes Mellitus Without Complication, Without Long-Term Current Use of Insulin (Hcc) - 06/01/2005 Calculus of Gallbladder Without Mention of Cholecystitis Or Obstruction - 06/01/2005 Diverticulosis of Colon (Without Mention of Hemorrhage) - 06/01/2005 Obesity, Unspecified - 06/01/2005 Esophageal Reflux - 06/01/2005 Other Cardiomyopathies (Hcc) - 06/01/2005 Social History Tobacco Use Smoking status: Never Smokeless tobacco: Never Vaping Use Vaping Use: Never used Substance Use Topics Alcohol use: Yes Comment: rarely Drug use: No Review of Systems Constitutional: Negative. Respiratory: Negative. Cardiovascular: Negative. OBJECTIVE BP 114/72 Pulse 74 Resp 16 Ht 5' 11" (1.80m) Wt 222 lb (100.7kg) BMI 30.98 kg/(m^2). Physical Exam Vitals and nursing note reviewed. Constitutional: General: He is awake. He is not in acute distress. Appearance: Normal appearance. He is well-developed and well-groomed. He is not ill-appearing, toxic-appearing or diaphoretic. HENT: Head: Normocephalic. Right Ear: External ear normal. Left Ear: External ear normal. Nose: Nose normal. Eyes: General: Vision grossly intact. Conjunctiva/sclera: Conjunctivae normal. Pupils: Pupils are equal, round, and reactive to light. Neck: Vascular: No JVD. Trachea: Trachea normal. Cardiovascular: Rate and Rhythm: Normal rate and regular rhythm. Pulses: Normal pulses. Heart sounds: Normal heart sounds. No murmur heard. Pulmonary: Effort: Pulmonary effort is normal. No accessory muscle usage, prolonged expiration or respiratory distress. Breath sounds: Normal breath sounds. Musculoskeletal: Cervical back: Neck supple. Skin: General: Skin is warm and dry. Capillary Refill: Capillary refill takes less than 2 seconds. Neurological: General: No focal deficit present. Mental Status: He is alert and oriented to person, place, and time. Mental status is at baseline. Psychiatric: Attention and Perception: Attention and perception normal. Mood and Affect: Mood and affect normal. Speech: Speech normal. Behavior: Behavior normal. Behavior is cooperative. Thought Content: Thought content normal. Cognition and Memory: Cognition and memory normal. Judgment: Judgment normal. ASSESSMENT/PLAN: 1. Mixed hyperlipidemia - ICD9: 272.2, ICD10: E78.2 (primary diagnosis) Discussed high ASCVD risk, recalculate with new labs once resulted. - Control undetermined, due for labs - Continue current medications - Counseled on healthy diet and regular exercise The 10-year ASCVD risk score (Yeimi BAEZA, et al., 2019) is: 49.2% Values used to calculate the score: Age: 78 years Sex: Male Is Non- : No Diabetic: Yes Tobacco smoker: No Systolic Blood Pressure: 114 mmHg Is BP treated: Yes HDL Cholesterol: 39 mg/dL Total Cholesterol: 236 mg/dL 2. Diabetic polyneuropathy associated with type 2 diabetes mellitus (HCC) - ICD9: 250.60, 357.2, ICD10: E11.42 - Control undetermined, due for labs - Continue current medications - Counseled on healthy diet and regular exercise - Discussed need for and benefit of weight loss. BMI 30.96 kg/(m^2) 3. Essential hypertension with goal blood pressure less than 130/80 - ICD9: 401.9, ICD10: I10 - Controlled - Continue current medications - Recommend home blood pressure monitoring, to bring results to next visit - Encouraged sodium restriction, DASH or Mediterranean diet - Recommend regular aerobic exercise 4. VENU (obstructive sleep apnea) - ICD9: 327.23, ICD10: G47.33 Stable. 5. Obesity, Class I, BMI 30-34.9 - ICD9: 278.00, ICD10: E66.9 Portions of this note have been entered by ancillary staff. I have reviewed and when necessary edited, so that they are an adequate record of my encounter with this patient Please note that parts of this document were created using voice recognition software and therefore may contain grammatical errors. Patient verbalizes understanding of instructions from today's visit and in agreement with treatmentplan. Questions answered. Agrees to call the office if questions, concerns of issues with acute symptoms not improving or if they worsen. See diagnoses and orders for additional plan(s). Allergies and medications were reviewed, list was updated, and refills given if needed. Past medical, surgical, social, and family history reviewed and updated as appropriate. Encouraged proper diet & exercise as well as compliance with taking medications. Age- appropriate health preventative measures were discussed. Return in about 6 months (around 05/15/2024) for Follow up on chronic conditions and medications.. Susannah Nickerson APRN-CADEN documented in this encounterMer[facility]09-12-[facility]23 Nurse Note* Millie Banks RN - 06/15/2023 8:26 AM EDT The scalp x 3 (site) was assessed and sutures were removed as ordered. No dressing required. Patient instructed on wound care and verbalized understanding. Pathology reviewed by Dr. Ruiz showed A. Skin, mid posterior scalp, excision: - Pilar cyst. B. Skin, right posterior scalp, excision: - Pilar cyst. C. Skin, left side, shave biopsy: - Irritated seborrheic keratosis. Dr Ruiz reviewed and advised all benign findings which this Nurse communicated to the Patient. The patient verbalized understanding and had no other needs or questions.Millie Banks RN documented in this encounterMer[facility]09-06-2023 History of Present illness Narrative* Talon Ruiz MD - 06/09/2023 10:59 AM EDT Preoperative diagnosis: Subcutaneous lesions to scalp (3), 2 atypical skin lesions to left flank Postoperative diagnosis: The same Procedure: Excision of three 1-1/2 cm subcutaneous lesions to scalp, shave biopsy of two 2-1/2 cm lesions to left flank Surgeon: Sara Procedure: Right scalp 2 lesions were identified. Betadine was applied. Sterile dressings were applied. Local was injected in 2 separate areas. Two 3 cm incisions were made. I dissected down removed to subcutaneous lesions. These were sent to pathology for permanent sectioning. 2 simple sutures of 4-0 nylon were placed into the incisions. On the left scalp was sterilely prepped and draped in usual fashion. Local was injected. 3 cm incision was made. Subcutaneous lesion was removed in its entirety. I brought the wound together with single 4-0 nylon. Sterile dressings were applied to both of these areas. Left flank area showed 2 atypical skin lesions. These were prepped with Betadine. 1% lidocaine plain was injected. Shave biopsies were obtained of these lesions. Electrocautery was used for good hemostasis. Sterile dressings were applied. Patient tolerated the procedure well. documented in this encounterMer[facility]09-05-2023 Instructions* Patient Instructions* Maria Elena Ernandez LPN - 06/08/2023 8:30 AM EDT Instructions After SKIN EXCISION-SUTURES If there is minor bleeding from this skin edge, you should hold pressure on the incision until the bleeding stops. If there is continued bleeding, you should contact our office immediately. If the wound shows signs of redness, inflammation, or purulent drainage, you should contact our office immediately. You should keep the wound dry for the first two days. After that time, you may wash the wound with gentle soap and water. The wound should not be immersed in a pool, bathtub, or even hot tub. We prefer to check the incision and remove the stitches in our office when ready. Please make an appointment to return to our office in 7-10 days. Please do not remove the stitches yourself without approval from our office. If you have any questions or concerns please feel free to call our office at [phone] and ask to be transferred to General Surgery. [facility] [place] - [facility]. Instructions After Skin Excison and Cautery You can remove the dressing in 24 hours. If the dressing becomes soaked or had significant drainage, the dressing should be changed. If there is minor bleeding from this skin edge, you should hold pressure on the incision until the bleeding stops. If there is continued bleeding, you should contact our office immediately. If the wound shows signs of redness, inflammation, or purulent drainage, you should contact our office immediately. After that time, you may wash the wound with gentle soap and water. The wound should not be immersed in a pool, bathtub, or even hot tub. documented in this encounterMercy [facility]09-05-2023 Nurse Note* Maria Elena Ernandez LPN - 06/08/2023 8:06 AM EDT UNIVERSAL PROTOCOL / SAFETY CHECKLIST Procedure to be Performed: Excision of scalp cyst times 3 shave biopsy skin left flank Sign In: A Moment of CARE was completed. Personnel directly involved with the procedure wore the appropriate PPE (Personal Protective Equipment). No special equipment needed. Patient/Surrogate Stated/Verified: PATIENT VERIFIED(optional for EMERGENT procedures): Patient name, Date of , Relevant allergies, and The intended procedure Time Out Communication: Intended patient and procedure match the source documents. Consent documented and matches the intended procedure. Relevant labs, photos, and/or imaging studies have been reviewed. Correct side/site marked and visible. Medications required for procedure verified. No fire risk assessment and interventions applicable. No implant(s) inserted. Sign Out: SIGN OUT (optional for EMERGENT procedures): All specimen containers correctly labeled. No instruments, equipment or retained foreign bodies applicable. Post-procedure follow-up management communicated and Plan of Care Visit completed when applicable. Maria Elena Ernandez LPN documented in this encounterMercy [facility]07-18-2023 Instructions* Patient Instructions* Enmanuel Carroll MD - 04/20/2023 3:47 PM EDT May try taking Crestor 40mg pills starting at half pill three days per week (MWF) then after 2 to 4weeks, can then increase to half pill every day but MWF, then after that can decide if able to go to daily. Check labs after a couple months after increase to 4 per week. HDL improves with omega 3 oils like in fish. Also regular aerobic exercise. Keep getting enough iron in your diet so can keep giving blood. documented in this encounterMercy Health [facility]07-18-2023 History of Present illness Narrative* Enmanuel Carroll MD - 04/20/2023 3:32 PM EDT Images from the original note were not included. This note was created using [employer]. Subjective Sudheer Hernandez is a 77 year old male. Patient presents with: F/U 6 months: Labs prior SUBJECTIVE: Sudheer Hernandez is a 77 year old year old gentleman here today for 6 month follow up appointment forreview of medical conditions. Noted that HgA1Cs was in 8 range. Resumed Jardiance. First time tried to cause UTI. Glipizide was stopped in evening but sugars got too high so resumed. Stopped Crestor. Worried about statin adverse effects potential. 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 PSA went up to 6 and saw urologist. PAST MEDICAL HISTORY Diagnosis Date Abdominal pain, right lower quadrant Benign neoplasm of colon Calculus of gallbladder without mention of cholecystitis or obstruction 06/01/2005 Diaphragmatic hernia without mention of obstruction or gangrene Diverticulosis of colon (without mention of hemorrhage) 06/01/2005 Diverticulosis of colon (without mention of hemorrhage) Esophageal reflux 06/01/2005 Obesity, unspecified 06/01/2005 Other primary cardiomyopathies 06/01/2005 Other specified visual disturbances Pure hypercholesterolemia 06/01/2005 Snoring Type II or unspecified type diabetes mellitus without mention of complication, not stated as uncontrolled 06/01/2005 Unspecified essential hypertension 06/01/2005 Current Outpatient Medications Medication Sig alogliptin (NESINA) 25 mg tab Take 1 tablet by mouth every evening. glipiZIDE (GLUCOTROL) 10 mg tablet Take 1 tablet by mouth daily before breakfast AND 0.5 tablets daily before dinner. empagliflozin (JARDIANCE) 25 mg tablet Take 1 tablet by mouth daily with breakfast. omega-3/dha/epa/fish oil (FISH OIL HIGH POTENCY ORAL) Take 1 capsule by mouth. 2400 mg taking 2 capsules Ascorbic Acid (VITAMIN C) 100 mg tablet Take 100 mg by mouth once daily. GARLIC Lactobacillus acidophilus (PROBIOTIC) 10 billion cell cap Take by mouth. metFORMIN (GLUCOPHAGE) 1,000 mg tablet Take 1 tablet by mouth twice daily with meals. ([facility]) TURMERIC ORAL Take by mouth once daily. cholecalciferol, vitamin D3, (VITAMIN D3 ORAL) Take 1 tablet by mouth once daily. ZINC ACETATE ORAL Take 1 tablet by mouth once daily. vitamin B complex (B COMPLEX 1 ORAL) Take by mouth. lisinopril-hydrochlorothiazide (PRINZIDE,ZESTORETIC) 20-12.5 mg per tablet Take 0.5 tablets by mouth once daily. Taking from [facility] Dr once daily blood sugar diagnostic(ONE TOUCH ULTRA TEST STRIPS) Check blood sugars three times daily or as directed lancets(ONE TOUCH ULTRASOFT LANCETS) Check blood sugars three times daily or as directed ONE TOUCH ULTRA SYSTEM KIT Use kit as directed to check blood sugars 3 times daily or as directed THERAPEUTIC MULTIVITAMIN TAB Take one(1) tablet daily. rosuvastatin (CRESTOR) 40 mg tablet Take 40 mg by mouth every evening. (Patient not taking: Reported on 04/20/2023) cyanocobalamin (VITAMIN B-12) 100 mcg tab Take 100 mcg by mouth once daily. (Patient not taking: Reported on 04/20/2023) thiamine (VITAMIN B1) 100 mg tablet Take 100 mg by mouth once daily. (Patient not taking: Reported on 01/01/2023) No current facility-administered medications for this visit. Review of Systems Objective BP 126/60 Pulse 90 Temp 36.3 C (97.4 F) Resp 18 Wt 100.7 kg (222 lb) SpO2 94% BMI 31.08kg/m Physical Exam Vitals reviewed. Constitutional: Appearance: Normal appearance. HENT: Head: Eyes: Conjunctiva/sclera: Conjunctivae normal. Cardiovascular: Rate and Rhythm: Normal rate and regular rhythm. Heart sounds: Normal heart sounds. Pulmonary: Effort: Pulmonary effort is normal. Breath sounds: Normal breath sounds. Chest: Skin: General: Skin is warm and dry. Neurological: General: No focal deficit present. Mental Status: He is alert and oriented to person, place, and time. Psychiatric: Mood and Affect: Mood normal. Behavior: Behavior normal. Thought Content: Thought content normal. Judgment: Judgment normal. Component Latest Ref Rng & Units 04/16/2021 10/06/2021 09/04/2022 04/12/2023 Protein, Total 6.3 - 8.0 g/dL 7.5 7.2 Albumin 3.9 - 4.9 g/dL 4.3 4.2 Calcium 8.5 - 10.2 mg/dL 9.6 9.6 Bilirubin, Total 0.2 - 1.3 mg/dL 0.5 0.4 Alkaline Phosphatase 38 - 113 U/L 95 65 AST 14 - 40 U/L 18 10 (L) ALT 10 - 54 U/L 17 9 (L) Glucose 74 - 99 mg/dL 183 (H) 190 (H) BUN 9 - 24 mg/dL 23 22 Creatinine 0.73 - 1.22 mg/dL 1.22 1.18 Sodium 136 - 144 mmol/L 140 137 Potassium 3.7 - 5.1 mmol/L 4.9 4.6 Chloride 97 - 105 mmol/L 106 (H) 105 CO2 22 - 30 mmol/L 23 20 (L) Anion Gap 9 - 18 mmol/L 11 12 eGFR >=60 mL/min/1.73m 62 64 WBC 3.70 - 11.00 k/uL 6.18 5.79 RBC 4.20 - 6.00 m/uL 5.66 5.30 Hemoglobin 13.0 - 17.0 g/dL 13.5 13.6 Hematocrit 39.0 - 51.0 % 43.8 43.3 MCV 80.0 - 100.0 fL 77.4 (L) 81.7 MCH 26.0 - 34.0 pg 23.9 (L) 25.7 (L) MCHC 30.5 - 36.0 g/dL 30.8 31.4 RDW-CV 11.5 - 15.0 % 17.6 (H) 15.5 (H) Platelet Count 150 - 400 k/uL 301 238 MPV 9.0 - 12.7 fL 9.1 9.5 Absolute nRBC <0.01 k/uL <0.01 <0.01 Cholesterol, Total <200 mg/dL 144 236 (H) Triglyceride <150 mg/dL 75 144 HDL Cholesterol >39 mg/dL 36 (L) 39 (L) Non HDL Cholesterol <130 mg/dL 108 197 (H) Fasting Time hrs 12 15 VLDL Cholesterol <30 mg/dL 15 29 TC:HDL Ratio <5.10 4.00 6.05 (H) LDL Cholesterol <100 mg/dL 93 168 (H) LDL:HDL Ratio <2.54 2.58 (H) 4.31 (H) Creatinine, Ur Random (UCRR) 20.0 - 300.0 mg/dL 77.5 Albumin, Urine Random mg/L <12.0 Albumin/Creat Ratio <30 mg/g <15 Hemoglobin A1C 4.3 - 5.6 % 7.7 (H) 7.6 (H) Estimated Average Glucose mg/dL 174 171 Hemoglobin A1C (POCT) 4.2 - 5.6 % 9.1 (A) 8.3 (A) Assessment and Plan Encounter Diagnosis ICD-10-CM 1. Pure hypercholesterolemia E78.00 LIPID PANEL BASIC LIPID PANEL BASIC 2. Type 2 diabetes mellitus without complication, without long-term current use of insulin (HCC) E11.9 COMP METABOLIC PANEL HGB A1C 3. Essential hypertension with goal blood pressure less than 130/80 I10 COMP METABOLIC PANEL CBC 4. Sebaceous cysts L72.3 CONSULT TO GENERAL SURGERY Back of head; 2 right parietal area posteriorly and 1 left occipital area 5. Seborrheic keratosis L82.1 CONSULT TO GENERAL SURGERY Above issues addressed with patient. Patient involved in shared decision making for management of medical issues. History and medications reviewed. Epic updated as needed Refills and/or prescriptions taken care of and meds adjusted as indicated after reviewed history, exam and labs. Health Maintenance reviewed. Updated record and/or ordered tests as recorded. Encouraged on efforts at healthy diet and regular exercise and adequate sleep. Enmanuel Carroll MD documented in this encounterMer[facility] History of Present illness Narrative* Lola Anand MA - 03/24/2023 7:57 AM EDT POPULATION HEALTH NAVIGATION OUTREACH Action/FYI Return in about 6 months (around 03/10/2023) Patient Identified by Name and : YES, via phone Outreach Outcome/Action Spoke to patient / parent / legal guardian: Patient scheduled Did you use a PCP flex slot to schedule this appointment? Yes Reason for Outreach Care Gap or Scheduling/Wellness visits Payer: Payor: HU[employer]NA MEDICARE / Plan: [employer] MEDICARE PPO / Product Type: PPO / Care Gap Reviewed:: Follow-up appointment Reminder: Reminder note to check Health Maintenance for items below Health Maintenance items due: HEPATITIS C SCREENING Never done DIABETIC FOOT EXAM due on 05/09/2021 DILATED RETINAL EXAM due on 09/22/2022 ADVANCE DIRECTIVE DISCUSSION due on 10/04/2022 DEPRESSION ASSESSMENT due on 10/04/2022 HBA1C due on 03/05/2023 Navigation Signature: Lola Anand MA March 24, 2023 7:57 AM documented in this encounterMer[facility]03-31-2023 Instructions* Patient Instructions* Jennifer Armijo APRN.CNP - 01/01/2023 2:36 PM EDT Go to [facility] Present for us will call with results. documented in this encounterMercy [facility]03-31-2023 History of Present illness Narrative* Jennifer RICHARD Armijo - 01/01/2023 2:31 PM EDT Images from the original note were not included. Subjective The history is provided by the patient. No spanish interpreter/translator was used. CHRIS Hernandez is a 77 year old male who presents today for CC of pain in upper leg that started over the past 24 hours and is worse. There is a palpable lump. He traveled 2 weeks ago to [place].He is not on a blood thinner. BP 122/78 Pulse 90 Temp 36.6 C (97.9 F) (Tympanic) Resp 16 Wt 102.1 kg (225 lb) SpO2 98% BMI 31.50 kg/m Social History Tobacco Use Smoking status: Never Smokeless tobacco: Never Substance Use Topics Alcohol use: Yes Comment: rarely Drug use: No PAST MEDICAL HISTORY Diagnosis Date Abdominal pain, right lower quadrant Benign neoplasm of colon Calculus of gallbladder without mention of cholecystitis or obstruction 06/01/2005 Diaphragmatic hernia without mention of obstruction or gangrene Diverticulosis of colon (without mention of hemorrhage) 06/01/2005 Diverticulosis of colon (without mention of hemorrhage) Esophageal reflux 06/01/2005 Obesity, unspecified 06/01/2005 Other primary cardiomyopathies 06/01/2005 Other specified visual disturbances Pure hypercholesterolemia 06/01/2005 Snoring Type II or unspecified type diabetes mellitus without mention of complication, not stated as uncontrolled 06/01/2005 Unspecified essential hypertension 06/01/2005 I have confirmed and edited as necessary, the [facility] Review of Systems Constitutional: Negative for chills and fever. Musculoskeletal: Positive for joint pain (leg pain). Negative for myalgias. Skin: Negative for itching and rash. All other systems reviewed and are negative. Objective Physical Exam Vitals and nursing note reviewed. Pulmonary: Effort: Pulmonary effort is normal. Musculoskeletal: Right upper leg: Swelling and tenderness present. No edema, deformity, lacerations or bony tenderness. Left upper leg: Normal. Legs: Comments: Area of pain and small palpable lump Skin: General: Skin is warm and dry. Neurological: Mental Status: He is alert and oriented to person, place, and time. Psychiatric: Mood and Affect: Affect normal. ASSESSMENT/PLAN: 1. Acute pain of right thigh - ICD9: 729.5, ICD10: M79.651 Possbile DVT, phlebitis, varicose vein Able to get Stat us today at [facility] will call with results. - US DVT UPPER RIGHT- interpreted by AMBER COLLAZO MD IMPRESSION: Negative study for proximal DVT in the right lower extremity. Negative study for calf DVT in the right lower extremity. Acute, occlusive superficial thrombophlebitis involving the right greater saphenous vein. Diagnosis and treatment plan were discussed and questions were answered to the patient's satisfaction. Pt acknowledged understanding of concepts and follow up plan. Specific signs and symptoms that would indicate the need for higher level of care were discussed indetail warranting prompt ER evaluation. Jennifer Armijo APRN.CADEN documented in this encounterMer[facility]01-31-2023 Miscellaneous Notes* Telephone Encounter - Lula Nova LPN - 11/03/2022 9:05 AM EST PATIENT NOTIFIED OF SAME. * Telephone Encounter - Enmanuel Carroll MD - 11/02/2022 7:52 PM EST Noted. The following approved medication requests have been transmitted electronically. Requested Prescriptions Signed Prescriptions Disp Refills fluconazole (DIFLUCAN) 150 mg tablet 1 tablet 0 Sig: Take 1 tablet by mouth once daily for 1 day. Authorizing Provider: ENMANUEL CARROLL nystatin (MYCOSTATIN) ointment 30 g 0 Sig: Apply to affected area twice daily. May discontinue a week after rash resolves. Treat for recurrent rash Authorizing Provider: ENMANUEL CARROLL MD * Telephone Encounter - Lynne Weinstein Sonia AVILA - 11/02/2022 2:47 PM EST Patient states has enough of the Nystatin Cream to use. What patient is requesting is Fluconazole 150mg tablet x 1 as he has taken in the past for the symptoms. Patient states he had been diagnosed with Balanitis. He would cleanse area and reapply the Nystatin ointment 2-[address] [facility] in [place]. Lynne Scott LPN * Telephone Encounter - Marilyn Miller - 11/02/2022 12:26 PM EST Sudheer is calling with redness/soreness at the head of his penis. He thought it may be another UTI from the jardiance, but he does not have any urinary symptoms or fever. He is using a cream he has used before and it is helping. Please call patient at [phone] (he will have the name of the cream when the nurse calls back. His pharmacy is: [facility] in [place]. documented in this encounterMer[facility]10-12-2022 History of Present illness Narrative* Lola Anand MA - 07/15/2022 9:49 AM EDT POPULATION HEALTH NAVIGATION OUTREACH Action/FYI left message on machine to return call [employer] message sent to patient Pt identified by name and : NO Outreach Outcome/Action Unable to reach patient: Left message [employer] message sent Did you use a PCP flex slot to schedule this appointment? N/A Reason for Outreach Care Gap or Scheduling/Wellness visits Payer: Payor: HU[employer]NA MEDICARE / Plan: [employer] MEDICARE PPO / Product Type: PPO / Care Gap Reviewed:: Follow-up appointment Nephropathy (Albumin/Creatinine) Urine Flu vaccine Reminder: Reminder note to check Health Maintenance for items below Health Maintenance items due: HEPATITIS C SCREENING Never done PNEUMOCOCCAL: 66+(2 - PPSV23 if available, else PCV20) due on 04/11/2019 COVID-19 VACCINE(3 - Booster for Moderna series) due on 02/24/2021 DIABETIC FOOT EXAM due on 05/09/2021 LDL CHOLESTEROL due on 08/28/2021 ADVANCE DIRECTIVE DISCUSSION Never done DEPRESSION ASSESSMENT Never done URINE ALBUMIN:CREATININE RATIO due on 12/02/2021 HBA1C due on 01/04/2022 INFLUENZA(1) due on 06/04/2022 Message Sent to Practice: No Navigation Signature: Lola Anand, Population Health Navigator July 15, 2022 9:49 AM documented in this encounterMercy [facility]07-02-2022 Miscellaneous Notes* Telephone Encounter - Marquita Alexis RN - 04/04/2022 8:36 AM EDT Pt called and is notified of providers results and instructions. Pt voices understanding. Sent message to Pt through [employer]. Marquita Alexis RN * Telephone Encounter - Enmanuel Carroll MD - 04/04/2022 12:27 AM EDT Sounds like balanitis. If has trouble with foreskin getting stifk behind the head of the penis, should be seen right away as this could cause permanent damage--ER or urgent care. Would stop soaps, topical antibiotic., silvadene, etc--these could all be causing increased irritation.. They recommend cleansing with saline solution a couple times a day. Can treat for possible yeast infection with difucan sent to pharmacy. Should be seen if not getting better. Express care over the holiday weekend versus IM department or urologist. Sent a [employer] message including above. * Telephone Encounter - Marquita Alexis RN - 04/03/2022 10:23 AM EDT Pt called in and reports he has soreness, itching, and redness on his penis. He has itched to the point where there are some scrapes and it is bleeding a little bit. Pt states he isn't circumcised. He says he has some pain when cleaning it and touching it, and he hasn't change soap. Pt denies pain with urination or at rest. Pt denies redness around the groin area in the creases. He has tried a 3 i n 1 ointment and Hydrocortisone cream. He has a Silvadene cream that usually works really well thathe hasn't tried. Pt asking if there is something the provider would recommend, or if she would callsomething in he uses [facility] in [place]. Please call and advise. documented in this encounterMercy [facility]07-14-2021 History of Past illness Narrative* Problem Noted Date Diagnosed Date Resolved Date Uncontrolled type 2 diabetes mellitus with hyperglycemia 04/16/2021 05/24/2023 Overview: Improved glucose since started checking again in April (every other day, once to a few times a day).Down to 80s last night and today Apnea 02/28/2016 07/08/2016 Overview: witnessed by Type 2 diabetes mellitus, controlled 06/01/2005 10/06/2021 documented as of this encounter (statuses as of 05/24/2023) [facility] of Past illness Narrative* Problem Noted Date Diagnosed Date Resolved Date Uncontrolled type 2 diabetes mellitus with hyperglycemia 04/16/2021 05/24/2023 Overview: Improved glucose since started checking again in April (every other day, once to a few times a day).Down to 80s last night and today Apnea 02/28/2016 07/08/2016 Overview: witnessed by Type 2 diabetes mellitus, controlled 06/01/2005 10/06/2021 documented as of this encounter (statuses as of 06/09/2023) [facility] of Past illness Narrative* Problem Noted Date Diagnosed Date Resolved Date Uncontrolled type 2 diabetes mellitus with hyperglycemia 04/16/2021 05/24/2023 Overview: Improved glucose since started checking again in April (every other day, once to a few times a day).Down to 80s last night and today Apnea 02/28/2016 07/08/2016 Overview: witnessed by Type 2 diabetes mellitus, controlled 06/01/2005 10/06/2021 documented as of this encounter (statuses as of 06/15/2023) [facility] of Past illness Narrative* Problem Noted Date Diagnosed Date Resolved Date Uncontrolled type 2 diabetes mellitus with hyperglycemia 04/16/2021 05/24/2023 Overview: Improved glucose since started checking again in April (every other day, once to a few times a day).Down to 80s last night and today Apnea 02/28/2016 07/08/2016 Overview: witnessed by documented as of this encounter (statuses as of 11/15/2023) [facility] of Past illness Narrative* Problem Noted Date Diagnosed Date Resolved Date Uncontrolled type 2 diabetes mellitus with hyperglycemia 04/16/2021 05/24/2023 Overview: Improved glucose since started checking again in April (every other day, once to a few times a day).Down to 80s last night and today Apnea 02/28/2016 07/08/2016 Overview: witnessed by documented as of this encounter (statuses as of 01/19/2024) [facility] of Past illness Narrative* Problem Noted Date Resolved Date Apnea 02/28/2016 07/08/2016 Overview: witnessed by Type 2 diabetes mellitus, controlled 06/01/2005 10/06/2021 documented as of this encounter (statuses as of 04/04/2022) [facility] of Past illness Narrative* Problem Noted Date Resolved Date Apnea 02/28/2016 07/08/2016 Overview: witnessed by Type 2 diabetes mellitus, controlled 06/01/2005 10/06/2021 documented as of this encounter (statuses as of 07/15/2022) [address]27-2016 History of Past illness Narrative* Problem Noted Date Resolved Date Apnea 02/28/2016 07/08/2016 Overview: witnessed by Type 2 diabetes mellitus, controlled 06/01/2005 10/06/2021 documented as of this encounter (statuses as of 11/03/2022) [facility] of Past illness Narrative* Problem Noted Date Resolved Date Apnea 02/28/2016 07/08/2016 Overview: witnessed by Type 2 diabetes mellitus, controlled 06/01/2005 10/06/2021 documented as of this encounter (statuses as of 01/02/2023) [facility] of Past illness Narrative* Problem Noted Date Resolved Date Apnea 02/28/2016 07/08/2016 Overview: witnessed by Type 2 diabetes mellitus, controlled 06/01/2005 10/06/2021 documented as of this encounter (statuses as of 01/02/2023) [facility] of [facility] illness Narrative* Problem Noted Date Resolved Date Apnea 02/28/2016 07/08/2016 Overview: witnessed by Type 2 diabetes mellitus, controlled 06/01/2005 10/06/2021 documented as of this encounter (statuses as of 03/24/2023) [facility] [place] [facility]* Diagnosis Acute pain of right thigh- Primary [facility] Acute pain of right thigh [facility]* Diagnosis Pure hypercholesterolemia- Primary Type 2 diabetes mellitus without complication, without long-term current use of insulin (HCC) Essential hypertension with goal blood pressure less than 130/80 Sebaceous cysts Sebaceous cyst Seborrheic keratosis Other seborrheic keratosis [facility]* Diagnosis Sebaceous cyst- Primary Seborrheic keratosis Other seborrheic keratosis [facility]* Diagnosis Visit for suture removal- Primary Encounter for removal of sutures [facility]* Diagnosis Mixed hyperlipidemia- Primary Diabetic polyneuropathy associated with type 2 diabetes mellitus (HCC) Essential hypertension with goal blood pressure less than 130/80 VENU (obstructive sleep apnea) Obstructive sleep apnea (adult) (pediatric) Obesity, Class I, BMI 30-34.9 Obesity, unspecified documented in this encounter [facility] [place] [facility]* Diagnosis Itching- Primary Unspecified pruritic disorder Rash Rash and other nonspecific skin eruption [facility] [place] [facility]* Diagnosis URI, acute- Primary Acute upper respiratory infections of unspecified site documented in this encounter [facility] [place] [facility]* Diagnosis Elevated PSA, between 10 and less than 20 ng/ml- Primary Elevated prostate specific antigen (PSA) documented in this encounter [facility] [place] [facility]* Diagnosis Medicare annual wellness visit, subsequent- Primary Routine general medical examination at a health care facility Diabetic polyneuropathy associated with type 2 diabetes mellitus (HCC) Essential hypertension with goal blood pressure less than 130/80 Mixed hyperlipidemia Anemia, unspecified type Screening for depression Encounter for screening examination for other mental health and behavioral disorders Encounter for immunization Need for other specified prophylactic vaccination against single bacterial disease documented in this encounter [facility] noteNo assessment information availableWOhio State East Hospital Work Phone: Evaluation note* Diagnosis Medicare annual wellness visit, subsequent- Primary Routine general medical examination at a health care facility Diabetic polyneuropathy associated with type 2 diabetes mellitus (HCC) Other cardiomyopathies (HCC) Encounter for screening examination for other mental health and behavioral disorders Screening for depression Essential hypertension with goal blood pressure less than 130/80 Benign prostatic hyperplasia without urinary obstruction Other diabetic neurological complication associated with type 2 diabetes mellitus (HCC) documented in this encounter [facility] [place] [facility]* Diagnosis Encounter for screening for cardiovascular disorders- Primary Screening for other and unspecified cardiovascular conditions documented in this encounter [facility] note* Diagnosis Onset Date Resolution Status Admit Date Abnormal findings on diagnostic imaging of heart and coronary circulation acute July 12, 2025 2:56pm Diabetes acute July 12, 025 2:56pm High cholesterol acute July 12, 2025 2:56pm Hypertension chronic July 12, 2025 2:56pm [place] [facility] Work Phone: Reason for referral (narrative)* Diagnostic Procedure Only (Urgent) - Closed Specialty Diagnoses / Procedures Referred By Ken kwan Referred To Contact US IMAGING Diagnoses Acute pain of right thigh Procedures US DVT LOWER RIGHT DUP-SCAN XTR VEINS UNILATERAL/LIMITED STUDY Jennifer Armijo APRN.CONVENTIONS RESERVATIONIST [address] [place] [address] Us Imaging Referral ID Status Reason Start Date Expiration Date V isits Requested Visits Authorized [id number] Closed Auto-Generate d Referral 01/01/2023 01/31/2024 1 1 [facility] for referral (narrative)* Diagnostic Procedure Only (Urgent) - Closed Specialty Diagnoses / Procedures Referred By Contac t Referred To Contact US IMAGING Diagnoses Acute pain of right thigh Procedures US DVT LOWER RIGHT DUP-SCAN XTR VEINS UNILATERAL/LIMITED STUDY Jennifer Armijo APRN.CONVENTIONS RESERVATIONIST [address] [place] [address] Us Imaging Referral ID Status Reason Start Date Expiration Date V isits Requested Visits Authorized [id number] Closed Auto-Generate d Referral 01/01/2023 01/31/2024 1 1 [facility] for referral (narrative)No reason for referral information availableWOhio State East Hospital Work Phone: Reason for visit Narrative* Diagnostic Procedure Only (Urgent) - Closed Specialty Diagnoses / Procedures Referred By Contac t Referred To Contact US IMAGING Diagnoses Acute pain of right thigh Procedures US DVT LOWER RIGHT DUP-SCAN XTR VEINS UNILATERAL/LIMITED STUDY Jennifer Armijo APRN.CONVENTIONS RESERVATIONIST [id number] [place] [id number] Us Imaging Referral ID Status Reason Start Date Expiration Date V isits Requested Visits Authorized [id number] Closed Auto-Generate d Referral 01/01/2023 01/31/2024 1 1 [facility] Advance Directives No Advanced Directives Records FoundDocuments on File Type Date Recorded Patient Stitcher Tape Controlled Machine Expl anation Advance Directive(s) 08/31/2016 1:20 PM Documents on File Type Date Recorded Patient Stitcher Tape Controlled Machine Expl anation Advance Directive(s) 09/23/2022 9:21 AM Documents on File Type Date Recorded Patient Stitcher Tape Controlled Machine Expl anation Advance Directive(s) 09/23/2022 9:21 AM Summary Purpose Family History No Family History Records Found Relationship Condition Age at Onset Recorded Date/T agapito sister Malignant neoplasm Unknown Diabetes mellitus Unknown Reason for Referral Specialty Diagnoses / Procedures Referred By Contac t Referred To Contact General Surgery Diagnoses Sebaceous cyst Seborrheic keratosis Procedures CONSULT TO GENERAL SURGERY OFFICE/OUTPATIENT [facility] 60-74 MINUTES Enmanuel Carroll MD [address] [place] [address] Referral ID Status Reason Start Date Expiration Date V isits Requested Visits Authorized [id number] Closed PCP Requested Referral 04/20/2023 04/19/2024 1 1 Specialty Diagnoses / Procedures Referred By Contac t Referred To Contact Dermatology Diagnoses Itching Rash Procedures CONSULT TO DERMATOLOGY Talon Ruiz MD [address] [facility] [place] [address] Beatrice Madrigal MD [address] [facility] [place] [address] Referral ID Status Reason Start Date Expiration Date Visits Requested Visits Authorized [id number] Ref Not Required PCP Requested Referral 01/18/2024 01/17/2025 1 1 Specialty Diagnoses / Procedures Referred By Contac t Referred To Contact Urology Diagnoses Elevated PSA, between 10 and less than 20 ng/ml Procedures CONSULT TO UROLOGY OFFICE/OUTPATIENT [facility] 60 MINUTES Enmanuel Carroll MD [address] [place] [address] Referral ID Status Reason Start Date Expiration Date Visits Requested Visits Authorized [id number] Authorized PCP Requested Referral 05/30/2024 05/30/2025 1 1 Chief Complaint and Reason for Visit Chief Complaint Admit Date PSA April 18, 2025 11:4 1am Chief Complaint Admit Date PSA April 18, 2025 11:4 1am SCREENING June 21, 2025 7:13am CT CALCIUM SCORING Chanelle 18th, 2025 7:14am ABN CCTA (SELF) July 12, 2025 2: 56pm FRIEND July 20, 2025 8 :37am Reason for Visit Admit Date Abnormal findings on diagnos tic imaging of heart and coronary circulation July 12, 2025 2:56pm Diabetes July 12, 2025 2: 56pm High cholesterol July 12, 2025 2: 56pm Hypertension July 12, 2025 2: 56pm Additional Source Comments Source Comments (unrecognize d section and content) In the event this informatio n is protected by the Federal Confidentiality of Alcohol and Drug Abuse Patient Records regulations: The Federal rules restrict any use of the information to criminally investigate or prosecute any alcohol or drug abuse patient.[facility] HospitalIn the event this information is protected by the Federal Confidentiality of Alcohol and Drug Abuse Patient Records regulations: The Federal rules restrict any use of the information to criminally investigate or prosecute any alcohol or drug abuse patient.[facility] HospitalIn the event this information is protected by the Federal Confidentiality of Alcohol and Drug Abuse Patient Records regulations: The Federal rules restrict any use of the information to criminally investigate or prosecute any alcohol or drug abuse patient.[facility] HospitalIn the event this information is protected by the Federal Confidentiality of Alcohol and Drug Abuse Patient Records regulations: The Federal rules restrict any use of the information to criminally investigate or prosecute any alcohol or drug abuse patient.[facility] HospitalIn the event this information is protected by the Federal Confidentiality of Alcohol and Drug Abuse Patient Records regulations: The Federal rules restrict any use of the information to criminally investigate or prosecute any alcohol or drug abuse patient.[facility] HospitalIn the event this information is protected by the Federal Confidentiality of Alcohol and Drug Abuse Patient Records regulations: The Federal rules restrict any use of the information to criminally investigate or prosecute any alcohol or drug abuse patient.[facility] HospitalIn the event this information is protected by the Federal Confidentiality of Alcohol and Drug Abuse Patient Records regulations: The Federal rules restrict any use of the information to criminally investigate or prosecute any alcohol or drug abuse patient.[facility] HospitalIn the event this information is protected by the Federal Confidentiality of Alcohol and Drug Abuse Patient Records regulations: The Federal rules restrict any use of the information to criminally investigate or prosecute any alcohol or drug abuse patient.[facility] HospitalIn the event this information is protected by the Federal Confidentiality of Alcohol and Drug Abuse Patient Records regulations: The Federal rules restrict any use of the information to criminally investigate or prosecute any alcohol or drug abuse patient.[facility] HospitalIn the event this information is protected by the Federal Confidentiality of Alcohol and Drug Abuse Patient Records regulations: The Federal rules restrict any use of the information to criminally investigate or prosecute any alcohol or drug abuse patient.[facility] HospitalIn the event this information is protected by the Federal Confidentiality of Alcohol and Drug Abuse Patient Records regulations: The Federal rules restrict any use of the information to criminally investigate or prosecute any alcohol or drug abuse patient.[facility] HospitalIn the event this information is protected by the Federal Confidentiality of Alcohol and Drug Abuse Patient Records regulations: The Federal rules restrict any use of the information to criminally investigate or prosecute any alcohol or drug abuse patient.[facility] HospitalIn the event this information is protected by the Federal Confidentiality of Alcohol and Drug Abuse Patient Records regulations: The Federal rules restrict any use of the information to criminally investigate or prosecute any alcohol or drug abuse patient.[facility] HospitalIn the event this information is protected by the Federal Confidentiality of Alcohol and Drug Abuse Patient Records regulations: The Federal rules restrict any use of the information to criminally investigate or prosecute any alcohol or drug abuse patient.[facility] HospitalIn the event this information is protected by the Federal Confidentiality of Alcohol and Drug Abuse Patient Records regulations: The Federal rules restrict any use of the information to criminally investigate or prosecute any alcohol or drug abuse patient.[facility] HospitalIn the event this information is protected by the Federal Confidentiality of Alcohol and Drug Abuse Patient Records regulations: The Federal rules restrict any use of the information to criminally investigate or prosecute any alcohol or drug abuse patient.[facility] HospitalIn the event this information is protected by the Federal Confidentiality of Alcohol and Drug Abuse Patient Records regulations: The Federal rules restrict any use of the information to criminally investigate or prosecute any alcohol or drug abuse patient.[facility] HospitalIn the event this information is protected by the Federal Confidentiality of Alcohol and Drug Abuse Patient Records regulations: The Federal rules restrict any use of the information to criminally investigate or prosecute any alcohol or drug abuse patient.[facility] HospitalIn the event this information is protected by the Federal Confidentiality of Alcohol and Drug Abuse Patient Records regulations: The Federal rules restrict any use of the information to criminally investigate or prosecute any alcohol or drug abuse patient.[facility] HospitalIn the event this information is protected by the Federal Confidentiality of Alcohol and Drug Abuse Patient Records regulations: The Federal rules restrict any use of the information to criminally investigate or prosecute any alcohol or drug abuse patient.[facility] HospitalIn the event this information is protected by the Federal Confidentiality of Alcohol and Drug Abuse Patient Records regulations: The Federal rules restrict any use of the information to criminally investigate or prosecute any alcohol or drug abuse patient.[facility] HospitalIn the event this information is protected by the Federal Confidentiality of Alcohol and Drug Abuse Patient Records regulations: The Federal rules restrict any use of the information to criminally investigate or prosecute any alcohol or drug abuse patient.[facility] Reason for Visit (unrecogniz ed section and content) Reason Comments Patient Update Medication Request Reason Onset Date Comments Population Health Navigation Outreach 07/15/2022 [employer] Care Gaps Reason Onset Date Comments Nurse Triage Call 11/02/2022 Penile Problem 11/02/2022 Reason Comments right leg and knee pain X 1 week-cannot recall an injury Reason Onset Date Comments Population Health Navigation Outreach 03/24/2023 [employer] Care Gaps Reason Comments F/U 6 months Labs prior Reason Comments Procedure Excision of scalp le gaby *3 Reason Comments Follow Up Suture removal Reason Comments 6 month follow up Reason Comments Follow Up L side flank skin ir ritation post cyst removal Reason Comments Cough Runny nose and conge stion x1 day. Reason Comments Established Patient Elevated PSA Reason Comments Results, Lab Reason Comments Medicare Wellness Exam Reason Onset Date Comments Population Health Navigation Outreach 12/18/2024 [employer] High Risk Attempt 2 Reason Onset Date Comments Population Health Navigation Outreach 03/12/2025 [employer] workbench sammy Reason Onset Date Comments Population Health Navigation Outreach 04/11/2025 [employer] Workbench [place] Reason Comments Follow Up Medication & labs Reason Comments Patient Question Care Teams (unrecognized sec tion and content) Machine Operator Relationship Specialty Start Date End Date Enmanuel Carroll MD [address] [place] [address] PCP - General 10/19/02 Machine Operator Relationship Specialty Start Date End Date Enmanuel Carroll MD [address] [place] [address] PCP - General 10/19/02 Machine Operator Relationship Specialty Start Date End Date Enmanuel Carroll MD [facility] [place] [address] PCP - General 10/19/02 Machine Operator Relationship Specialty Start Date End Date Enmanuel Carroll MD [address] [place] [address] PCP - General 10/19/02 Machine Operator Relationship Specialty Start Date End Date Enmanuel Carroll MD [address] [place] [address] PCP - General 10/19/02 Machine Operator Relationship Specialty Start Date End Date Enmanuel Carroll MD [address] [facility] [place] [address] PCP - General 10/19/02 [facility] [address] [facility] [place] [address] 03/24/23 Machine Operator Relationship Specialty Start Date End Date Enmanuel Carroll MD [address] [facility] [place] [address] PCP - General 10/19/02 [facility] [address] [facility] [place] [address] 03/24/23 Machine Operator Relationship Specialty Start Date End Date Enmanuel Carroll MD [address] [place] [address] PCP - General 10/19/02 [facility] [address] [facility] [place] [address] 03/24/23 Machine Operator Relationship Specialty Start Date End Date Enmanuel Carroll MD [address] [place] [address] PCP - General 10/19/02 [facility] [address] [facility] [place] [address] 03/24/23 Machine Operator Relationship Specialty Start Date End Date Enmanuel Carroll MD [address] [place] [address] PCP - General 10/19/02 [facility] [address] [facility] [place] [address] 03/24/23 Machine Operator Relationship Specialty Start Date End Date Enmanuel Carroll MD [address] [place] [address] PCP - General 10/19/02 [facility] [address] [facility] [place] [address] 03/24/23 Machine Operator Relationship Specialty Start Date End Date Enmanuel Carroll MD [address] [place] [address] PCP - General 10/19/02 [facility] [address] [facility], [place] [address] 03/24/23 Machine Operator Relationship Specialty Start Date End Date Enmanuel Carroll MD [address] [place] [address] PCP - General 10/19/02 [facility] [address] [facility] [place] [address] 03/24/23 Machine Operator Relationship Specialty Start Date End Date Enmanuel Carroll MD [address] [place] [address] PCP - General 10/19/02 [facility] [address] [facility], [place] [address] 03/24/23 Machine Operator Relationship Specialty Start Date End Date Enmanuel Carrlol MD [address] [place] [address] PCP - General 10/19/02 [facility] [address] [place] [address] 03/24/23 Maddy Lowe APRN.CNS [address] [place] [address] Tool And Machine Maintainer Internal Medicine 09/11/24 Susannah Nickerson APRN.CONVENTIONS RESERVATIONIST [address] [place] [address] [facility] Internal Medicine 09/11/24 Machine Operator Relationship Specialty Start Date End Date Enmanuel Carroll MD [address] [place] [address] PCP - General 10/19/02 [facility] [address] [place] [address] 03/24/23 Maddy Lowe APRN.BUNK HOUSE WORKER [address] [place] [address] Tool And Machine Maintainer Internal Medicine 09/11/24 Susannah Nickerson APRN.CONVENTIONS RESERVATIONIST [address] [place] [address] [facility] Internal Medicine 09/11/24 Machine Operator Relationship Specialty Start Date End Date Enmanuel Carroll MD [address] [place] [address] PCP - General 10/19/02 [facility] [address] [place] [address] 03/24/23 Susannah Nickerson APRN.CONVENTIONS RESERVATIONIST [address] [place] [address] Tool And Machine Maintainer Internal Medicine 12/26/24 Maddy Lowe APRN.BUNK HOUSE WORKER [address] [place] [address] Tool And Machine Maintainer Internal Medicine 02/21/25 Team Status: Active Member Role/Relationship Status Dates Dr. Enmanuel Carroll MD Primary Care Provider Active Team Status: Inactive Member Role/Relationship Status Dates Dr. Enmanuel Carroll MD Primary Care Provider Active Start: April 18, 2025 End: April 18, 2025 [place] Attending Provider Active Start : April 18, 2025 End: April 18, 2025 [place] Referring Provider Active Start : April 18, 2025 End: April 18, 2025 Machine Operator Relationship Specialty Start Date End Date Enmanuel Carroll MD [address] [place], [place] [address] PCP - General 10/19/02 [facility] [address] [facility] [place] [address] 03/24/23 Susannah Nickerson STOREKEEPER HELPER.CONVENTIONS RESERVATIONIST [address] [place] [address] Tool And Machine Maintainer Internal Medicine 12/26/24 Maddy Lowe, STOREKEEPER HELPER.BUNK HOUSE WORKER [address] [place] [address] Tool And Machine Maintainer Internal Medicine 02/21/25 Machine Operator Relationship Specialty Start Date End Date Enmanuel Carroll MD [address] [place] [address] PCP - General 10/19/02 [facility] [address] [facility] [place] [address] 03/24/23 Susannah Nickerson STOREKEEPER HELPER.CONVENTIONS RESERVATIONIST [address] [place], [place] [address] Tool And Machine Maintainer Internal Medicine 12/26/24 Maddy Lowe APRN.BUNK HOUSE WORKER [address] [facility] [place] [address] Tool And Machine Maintainer Internal Medicine 02/21/25 Team Status: Active Member Role/Relationship Status Dates Dr. Enmanuel Carroll MD Primary care physician Active Team Status: Inactive Member Role/Relationship Status Dates Dr. Enmanuel Carroll MD Primary care physician Active Start: April 18, 2025 End: April 18, 2025 Diamond [place] Attending physician Active Star t: April 18, 2025 End: April 18, 2025 Diamond [place] Referring Provider Active Start : April 18, 2025 End: April 18, 2025 Team Status: Active Member Role/Relationship Status Dates Dr. Enmanuel Carroll MD Primary care physician Active Start: June 21, 2025 Maddy Lowe SOFTWARE SYSTEMS ARCHITECT, SOFTWARE SYSTEMS ARCHITECT-C Attending physician Active Start: June 21, 2025 Maddy Lowe SOFTWARE SYSTEMS ARCHITECT, SOFTWARE SYSTEMS ARCHITECT-C Referring Provider Active Start: June 21, 2025 Team Status: Active Member Role/Relationship Status Dates Dr. Enmanuel Carroll MD Primary care physician Active Start: June 21, 2025 Dr. Gamal Campos MD Attending physician Active Start: June 21, 2025 Dr. Gamal Campos MD Referring Provider Active S tart: June 21, 2025 Team Status: Inactive Member Role/Relationship Status Dates Dr. Enmanuel Carrlol MD Primary care physician Active Start: July 12, 2025 End: July 12, 2025 Dr. Enmanuel Carroll MD Referring Provider Active Start: July 12, 2025 End: July 12, 2025 Dr. Gamal Campos MD Attending physician Active Start: July 12, 2025 End: July 12, 2025 Team Status: Active Member Role/Relationship Status Dates Dr. Enmanuel Carroll MD Primary care physician Active Start: July 20, 2025 Dr. Gamal Campos MD Attending physician Active Start: July 20, 2025 Dr. Gamal Campos MD Referring Provider Active S tart: July 20, 2025 (unrecognized sect ion and content) No Status Records FoundNo Status Records FoundNo Status Records Found INFORMATION SOURCE (unrecogn ized section and content) DATE CREATED AUTHOR 01/06/2023 [facility] DATE CREATED AUTHOR AUTHOR'S ORGANIZ ATION 07/09/2025 [facility] DATE CREATED AUTHOR AUTHOR'S ORGANIZ ATION 07/31/2025 [facility] Goals (unrecognized section and content) Goals may be documented in a n alternate sectionGoals may be documented in an alternate section FOR RECORDS PERTAINING TO PATIENTS WHO ARE OR HAVE BEEN ENROLLED IN A CHEMICAL DEPENDENCY/SUBSTANCEABUSE PROGRAM, SOME INFORMATION MAY BE OMITTED. This clinical summary was aggregated from multiple sources. Caution should be exercised in using it in the provision of clinical care. This summary normalizes information from multiple sources, and as a consequence, information in this document may materially change the coding, format and clinical context of patient data. In addition, data may be omitted in some cases. CLINICAL DECISIONS SHOULD BE BASED ON THE PRIMARY CLINICAL RECORDS. [employer] provides no warranty or guarantee of the accuracy or completeness of information in this document.
[2025-08-01 08:54] LABS: PSA,Total- Diagnostic 14.00 ng/mL (0.00-4.00)
== END 2025-08-01 23:59 | disposition home or self-care (01) ==
LOC: LAB 06:44
PROVIDERS: PCP Internal Medicine; Referring Provider Nurse Practitioner; Visit Provider Nurse Practitioner
DX: R97.20 Elevated prostate specific antigen [PSA] (principal)
CPT/HCPCS: 36415; 84153

== ENCOUNTER → 2025-08-10 | Outpatient (CLI) | payer MEDICARE, SELFPAY ==
[2024-08-09 15:14] VITALS: BMI 29.7
--- NOTE | 2025-08-10 07:34 | ECHOCS_ITS ---
Reason For Study ECHO/Echo Complete W/ Contrast
--- NOTE | 2025-08-18 11:12 | STRESSREP_ITS ---
Stress Test Report
--- NOTE | 2025-08-18 11:12 | STRESSREP ---
Stress Test Report Exercise myocardial perfusion stress test. 79-year-old man with a history of coronary artery disease. Stress protocol: Resting EKG demonstrates normal sinus rhythm with a rate of 65 bpm resting blood pressure is 122/74 mmHg. The patient exercised according to the regular Jay Jay protocol for a total duration of 5 minutes attaining a maximum heart rate of 125 bpm which was 88% of maximum predicted heart rate; the maximum workload was 7 metabolic equivalents. At rest there were no ST or T wave changes noted to suggest ischemia and at peak exercise upsloping ST changes only were noted which did not meet the criteria for ischemia. No clinical angina was noted the test was terminated due to the target heart rate being achieved/fatigue. The peak blood pressure was 152/80 mmHg. Rate-pressure product was 17,700. Myocardial perfusion protocol. 14.3 mCi of technetium 99m sestamibi was injected at rest. The patient exercised according to regular Jay Jay protocol for total duration of 5 minutes and at peak exercise 44.1 mCi of technetium 99m sestamibi was injected stress images were obtained stress and rest images were reconstructed in comparing the short axis vertical long and horizontal long axis. Gated images were also obtained. Perfusion SPECT analysis: Review of the stress images demonstrate normal uptake of tracer noted in all areas of the myocardium. The resting images similarly demonstrate normal uptake of tracer noted in all areas of the myocardium. No areas of reversibility are noted to suggest ischemia no previous infarct was noted. Gated SPECT analysis: The gated ejection fraction is 68%. Conclusion: Normal exercise myocardial perfusion stress test at a moderate workload.
== END | disposition home or self-care (01) ==
LOC: CVS 07:29
PROVIDERS: PCP Internal Medicine; Referring Provider Internal Medicine Cardiovascular Disease; Visit Provider Internal Medicine Cardiovascular Disease
DX: I25.10 Atherosclerotic heart disease of native coronary artery without angina pectoris (principal); R93.1 Abnormal findings on diagnostic imaging of heart and coronary circulation
CPT/HCPCS: 78452; 93017; 93306; A9500; Q9957; A4216; C8929

== ENCOUNTER → 2025-08-27 | Outpatient (CLI) | payer MEDICARE, SELFPAY ==
[2024-08-09 15:14] VITALS: BMI 29.7
--- NOTE | 2025-08-27 08:00 | PROSBIL_PTH ---
PATIENT: SUDHEER HERNANDEZ LOC: [facility] U#:[id number] AGE/SX: 79/M ROOM: RE08/27/[address]: Dr. Heriberto Barragan MD : 1945 BED: DIS: 08/27/2025 SPEC #: [id number] RECD: 08/27/25 14:30 STATUS: VILMA REQ #: [id number] JODY: 08/27/25 08:[address]: Heriberto Barragan DEPT: SURGICAL PATHOLOGY RECD BY: Harlan Funes ENTERED: 08/28/25 08:57 SP TYPE: PROST BX KURT DR: Dr. Katelyn Baker MD Tissues: A - PROSTATE RIGHT B - PROSTATE RIGHT C - PROSTATE RIGHT D - PROSTATE LEFT E - PROSTATE LEFT F - PROSTATE LEFT Procedures: PROSTATE BX HEADER OPERATION: Prostate biopsy PRE-OP DIAGNOSIS: Elevated PSA TISSUE SUBMITTED: A - Right apex, B - Right mid, C - Right base, D - Left apex, E - Left mid, F - Left base MICROSCOPIC DIAGNOSIS A. 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 Prostate, mid, right, biopsy: * Prostatic adenocarcinoma, Alex score 4+4=8 (grade group 4) involving 1 of 3 cores and 19% of the tissue C. Prostate, base, right biopsy: * Benign prostatic tissue D. Prostate, apex, left, biopsy: * Benign prostatic tissue E. Prostate, mid, left, biopsy: * Benign prostatic tissue F. Prostate, base, left, biopsy: * Benign prostatic tissue MICROSCOPIC DESCRIPTION Slides are reviewed. GROSS DESCRIPTION Received in 6 formalin containers labeled with the patient's name and date of . Designated as: A. "RA" are 2 villan[place]va tissue cores, 1.8 cm and 1.9 cm in length by 0.1 cm in diameter. Entirely submitted in 1 cassette. B. "RM" are 2 fragmented tissue cores, 1.4 cm and 1.9 cm in length by 0.1 cm in diameter. Entirely submitted in 1 cassette. C. "RB" are 2 villan[place]va tissue cores, 1.6 cm and 1.7 cm in length by 0.1 cm in diameter. Entirely submitted in 1 cassette. D. "LA" are 2 fragmented tissue cores, each measuring 1.6 cm in length by 0.1 cm in diameter. Entirely submitted in 1 cassette. B. "LM" are 2 fragmented villan[place]va tissue cores, 1.4 cm and 1.6 cm in length by 0.1 cm in diameter. Entirely submitted in 1 cassette. F. "LB" are 2 fragmented villanueva tissue cores, each measuring 1.5 cm in length by 0.1 cm in diameter. Entirely submitted in 1 cassette. VT [id number]
== END | disposition home or self-care (01) ==
LOC: LABSPEC 14:55
PROVIDERS: PCP Internal Medicine; Referring Provider Urology; Visit Provider Urology
DX: C61 Malignant neoplasm of prostate (principal)
CPT/HCPCS: 88305; G0416

== ENCOUNTER → 2025-09-18 | Outpatient (CLI) | payer MEDICARE, SELFPAY ==
[2024-08-09 15:14] VITALS: BMI 29.7
--- OUTSIDE RECORDS SUMMARY | 2025-09-18 12:47 | XMS RPT_ITS | CCD ---
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 Carroll MD Work Phone: [facility] 05-09-2024 09:130400 Respiratory rate 16 /min Enmanuel Carroll MD Work Phone: [facility] 05-09-2024 09:130400 SaO2% (BldA) [Mass fraction] 97 % Enmanuel Carroll MD Work Phone: [facility] 05-09-2024 09:13-0400 Systolic blood pressure 128 mm[Hg] Enmanuel Carroll MD Work Phone: [facility] 02-25-2024 15:26-0400 Body mass index (BMI) [Ratio] 32.38 kg/m2 Adela Arellano APRN.INCINERATOR OPERATOR Work Phone: [facility] 02-25-2024 15:26-0400 Body temperature 98.49 [degF] Adela Arellano APRN.INCINERATOR OPERATOR Work Phone: [facility] 02-25-2024 15:26-0400 Body weight 105.3 kg Adela Arellano APRN.INCINERATOR OPERATOR Work Phone: [facility] 02-25-2024 15:26-0400 Diastolic blood pressure 68 mm[Hg] Adela Arellano APRN.INCINERATOR OPERATOR Work Phone: [facility] 02-25-2024 15:26-0400 Heart rate 62 /min Adela Arellano APRN.INCINERATOR OPERATOR Work Phone: [facility] 02-25-2024 15:26-0400 Respiratory rate 18 /min Adela Arellano APRN.INCINERATOR OPERATOR Work Phone: [facility] 02-25-2024 15:26-0400 SaO2% (BldA) [Mass fraction] 97 % Adela Arellano APRN.INCINERATOR OPERATOR Work Phone: [facility] 02-25-2024 15:26-0400 Systolic blood pressure 138 mm[Hg] Adela Arellano APRN.INCINERATOR OPERATOR Work Phone: [facility] 01-18-2024 11:13-0400 Body height 180.3 cm Talon Ruiz MD Work Phone: [facility] 01-18-2024 11:13-0400 Body weight 100.25 kg Talon Ruiz MD Work Phone: [facility] 01-18-2024 11:13-0400 Diastolic blood pressure 73 mm[Hg] Talon Ruiz MD Work Phone: [facility] 01-18-2024 11:13-0400 Heart rate 74 /min Talon Ruiz MD Work Phone: [facility] 01-18-2024 11:13-0400 Systolic blood pressure 116 mm[Hg] Talon Ruiz MD Work Phone: [facility] 11-15-2023 13:40-0500 Body height 180.3 cm Susannah Liya DIRT BIKE MECHANIC.INCINERATOR OPERATOR Work Phone: [facility] 11-15-2023 13:40-0500 Body weight 100.7 kg Susannah Liya DIRT BIKE MECHANIC.INCINERATOR OPERATOR Work Phone: [facility] 11-15-2023 13:40-0500 Diastolic blood pressure 72 mm[Hg] Susannah Liya DIRT BIKE MECHANIC.INCINERATOR OPERATOR Work Phone: [facility] 11-15-2023 13:40-0500 Heart rate 74 /min Susannah Liya DIRT BIKE MECHANIC.INCINERATOR OPERATOR Work Phone: [facility] 11-15-2023 13:40-0500 Respiratory rate 16 /min Susannah Liya DIRT BIKE MECHANIC.INCINERATOR OPERATOR Work Phone: [facility] 02-12-2024 13:40-0500 Systolic blood pressure 114 mm[Hg] Susannah Liya DIRT BIKE MECHANIC.INCINERATOR OPERATOR Work Phone: [facility] 04-20-2023 15:20-0400 Body temperature 97.39 [degF] Enmanuel Carroll MD Work Phone: [facility] 04-20-2023 15:20-0400 Body weight 100.7 kg Enmanuel Carroll MD Work Phone: [facility] 04-20-2023 15:20-0400 Diastolic blood pressure 60 mm[Hg] Enmanuel Carroll MD Work Phone: [facility] 04-20-2023 15:20-0400 Heart rate 90 /min Enmanuel Carroll MD Work Phone: [facility] 04-20-2023 15:20-0400 Respiratory rate 18 /min Enmanuel Carroll MD Work Phone: [facility] 04-20-2023 15:20-0400 SaO2% (BldA) [Mass fraction] 94 % Enmanuel Carroll MD Work Phone: [facility] 04-20-2023 15:20-0400 Systolic blood pressure 126 mm[Hg] Enmanuel Carroll MD Work Phone: [facility] 01-01-2023 14:24-0400 Body temperature 97.9 [degF] Jennifer Aleksander DIRT BIKE MECHANIC.INCINERATOR OPERATOR Work Phone: [facility] 01-01-2023 14:24-0400 Body weight 102.06 kg Jennifer Aleksander DIRT BIKE MECHANIC.INCINERATOR OPERATOR Work Phone: [facility] 01-01-2023 14:24-0400 Diastolic blood pressure 78 mm[Hg] Jennifer Aleksander DIRT BIKE MECHANIC.INCINERATOR OPERATOR Work Phone: [facility] 01-01-2023 14:24-0400 Heart rate 90 /min Jennifer Aleksander DIRT BIKE MECHANIC.INCINERATOR OPERATOR Work Phone: [facility] 01-01-2023 14:24-0400 Respiratory rate 16 /min Jennifer Aleksander DIRT BIKE MECHANIC.INCINERATOR OPERATOR Work Phone: [facility] 01-01-2023 14:24-0400 SaO2% (BldA) [Mass fraction] 98 % Jennifer Marcumsixto MCELROY.INCINERATOR OPERATOR Work Phone: [facility] 01-01-2023 14:24-0400 Systolic blood pressure 122 mm[Hg] Jennifer Aleksander MCELROY.INCINERATOR OPERATOR Work Phone: [facility] Encounters Encounter Date Encounter Type Care Provider Facility Start: 08-10-2025 ambulatory Gamal Campos Facility:[facility] Start: 08-01-2025 End: 08-01-2025 ambulatory Enmanuel Carroll Facility:[facility] Start: 07-20-2025 ambulatory [facility] Facility:[facility] Start: 07-12-2025 End: 07-12-[address] Gamal Campos [facility] -[facility][note 3] Group Work Phone: Start: 07-12-2025 End: 07-12-[address] Enmanuel Carroll MD Work Phone: -[facility] Start: 06-21-2025 Non-patient / Non-visit Dr. Cristobal MCBRIDE -[facility] Work Phone: Start: 06-21-2025 ambulatory Enmanuel Carroll [facility] y:[facility] Start: 06-21-2025 Registered Referred Maddy Lowe BRAKE MACHINE OPERATOR- C -Cat [facility] Work Phone: Start: 05-31-2025 End: 06-01-2025 Telephone encounter Enmanuel Carroll MD Work Phone: [address] [place] [address] Comment on above: Patient Question Start: 04-18-2025 End: 04-18-[address] Enmanuel Carroll MD Work Phone: -Laboratory Start: 04-18-2025 End: 04-18-2025 Patient encounter procedure Diamond Ragland -Laboratory Work Phone: Start: 04-18-2025 End: 04-18-2025 ambulatory Enmanuel Carroll Facility:[facility] Start: 04-11-2025 End: 04-11-2025 ambulatory Enmanuel Carroll MD Work Phone: [facility] Start: 04-11-2025 End: 04-11-2025 Patient encounter procedure Enmanuel Carroll MD Work Phone: [facility] Comment on above: Population Health Na vigation Outreach ([facility] ) Medicare annual well ness visit, subsequent [...] (HCC) Start: 04-04-2025 End: 04-04-2025 [facility] Start: 03-12-2025 End: 03-12-2025 ambulatory Hector Bryan MA [facility] Start: 03-12-2025 End: 03-12-2025 Patient encounter procedure Hector Bryan [facility] Comment on above: Population Health Na vigation Outreach ([facility]) Start: 12-18-2024 End: 12-18-2024 ambulatory Imelda Teague MA [facility] Start: 12-18-2024 End: 12-18-2024 Patient encounter procedure Imelda Teague MA [facility] Comment on above: Population Health Na vigation Outreach ([facility] High Risk Attempt 2) Start: 11-27-2024 End: 11-27-2024 ambulatory Imelda Teague [facility] Start: 11-27-2024 End: 11-27-2024 Patient encounter procedure Imelda Teague MA [facility] Start: 10-17-2024 End: 10-17-2024 ambulatory Vincent [facility] Facility:[facility] Start: 09-07-2024 End: 09-07-2024 [facility] Start: 08-17-2024 End: 08-17-2024 ambulatory Ibrahima HERNANDEZ Facility:[facility] Start: 05-30-2024 End: 05-30-2024 Office outpatient visit 10 minutes Enmanuel Carroll MD Work Phone: [facility] [place] Comment on above: Elevated PSA, betwee n 10 and less than 20 ng/ml (Primary Dx) Start: 05-30-2024 End: 05-30-2024 Telephone encounter Enmanuel Carroll MD Work Phone: [facility] [place] Comment on above: Results, Lab Start: 05-29-2024 End: 05-29-2024 Telephone encounter Enmanuel Carroll MD Work Phone: [facility] [place] Start: 05-09-2024 End: 05-09-2024 Patient encounter procedure Enmanuel Carroll MD Work Phone: [facility] [place] Comment on above: Medicare annual well ness visit, subsequent (Primary Dx); Diabetic polyneuropathy associated with type 2 diabetes mellitus (HCC); Essential hypertension with goal blood pressure less than 130/80; Mixed hyperlipidemia; Anemia, unspecified type; Screening for depression; Encounter for screening examination for other mental health and behavioral disorders; Encounter for immunization Start: 02-25-2024 End: 02-25-2024 Patient encounter procedure Adela Arellano APRN.INCINERATOR OPERATOR [facility] Comment on above: URI, acute (Primary Dx) Start: 01-18-2024 End: 01-18-2024 Patient encounter procedure Talon Ruiz MD Work Phone: General Surgery Comment on above: Itching (Primary Dx) ; Rash Start: 11-15-2023 End: 11-15-2023 Patient encounter procedure Susannah Nickerson APRN.INCINERATOR OPERATOR Work Phone: [facility] [place] Comment on above: Mixed hyperlipidemia (Primary Dx); Diabetic polyneuropathy associated with type 2 diabetes mellitus (HCC); Essential hypertension with goal blood pressure less than 130/80; VENU (obstructive sleep apnea); Obesity, Class I, BMI 30-34.9 Start: 06-15-2023 End: 06-15-2023 Nursing evaluation of patient and report Nurse Giovanna [facility] Work Phone: General Surgery Comment on above: Visit for suture rem oval (Primary Dx) Start: 06-08-2023 End: 06-08-2023 Patient encounter procedure Talon Ruiz MD Work Phone: General Surgery Comment on above: Sebaceous cyst (Prim jaquan Dx); Seborrheic keratosis Start: 04-20-2023 End: 04-20-2023 Office outpatient visit 25 minutes Enmanuel Carroll MD Work Phone: [facility] [place] Comment on above: Pure hypercholestero lemia (Primary Dx); Type 2 diabetes mellitus without complication, without long-term current use of insulin (HCC); Essential hypertension with goal blood pressure less than 130/80; Sebaceous cysts; Seborrheic keratosis Start: 03-24-2023 ambulatory [facility] [place] Comment on above: Population Health Na vigation Outreach ([employer] [facility] ) Start: 01-01-2023 ambulatory ENMANUEL CARROLL Facilit y:[facility] Start: 01-01-2023 End: 01-01-2023 Subsequent hospital visit by physician [facility] Comment on above: Acute pain of right thigh [M79.651] Start: 01-01-2023 End: 01-01-2023 Patient encounter procedure Jennifer Armijo DIRT BIKE MECHANIC.INCINERATOR OPERATOR Work Phone: [facility] Comment on above: Acute pain of right thigh (Primary Dx) Start: 11-02-2022 Telephone encounter Enmanuel mcrae MD Work Phone: [facility] [place] Comment on above: Nurse Triage Call; P enile Problem Start: 07-15-2022 ambulatory [facility] [place] Comment on above: Population Health Na vigation [...] Dup-scan xtr veins unilateral/limited study Jennifer Armijo DIRT BIKE MECHANIC.INCINERATOR OPERATOR Work Phone: Start: 10-06-2021 Adult depression scr eening assessment Enmanuel Carroll MD Work Phone: Start: 08-31-2016 Colonoscopy Enmanuel miranda MD Work Phone: Plan of Treatment Date Care Activity Detail Author Start: 10-11-2027 Urine microalbumin profile [facility] Start: 08-31-2026 Colonoscopy COLONOSCOPY [facility] Start: 08-31-2026 COLORECTAL CANCER SCREENING COLORECTAL CANCER SCREENING [facility] Start: 04-19-2026 End: 04-19-2026 Patient encounter procedure 04/19/2026 3:40 PM EDT Office Visit [facility] [place] [address] [place] [address] nEmanuel Carroll MD [address] [place] [address] Wellness [facility] [place] Comment on above: Wellness Start: 04-11-2026 Annual PCP Team Chronic Disease Visit Annual PCP Team Chronic Disease Visit [facility] Start: 04-11-2026 Anxiety Screening Anxiety Screening [facility] Start: 04-11-2026 Depression Screening Depression Screening [facility] Start: 04-11-2026 Diabetic foot examination Diabetic Foot Exam [facility] Start: 04-11-2026 RSV Vaccine (1 - 1-dose 75+ series) RSV Vaccine (1 - 1-dose 75+ series) [facility] Comment on above: Postponed from 2021 (Declined at t his time) Start: 04-04-2026 Hepatitis B screening Urine Albumin:Creatinine Ratio [facility] Start: 11-02-2025 Glaucoma screening Dilated Retinal Exam [facility] Start: 11-02-2025 End: 11-02-2025 Patient encounter procedure 11/02/2025 9:40 AM EST Office Visit [facility] [place] [address] [place] [address] Enmanuel Carroll MD [address] [place] [address] 6 month follow up [facility] [place] Comment on above: 6 month follow up Start: 10-05-2025 Hemoglobin A1c measurement HbA1C [facility] Start: 07-20-2025 Registered Referred Registered Referred -Cardiovascular Services Work Phone: Start: 07-12-2025 End: 07-12-2025 Evaluation of diagnostic study results [facility] Start: 07-12-2025 Radionuclide imaging of perfusion of myocardium under exercise stress [facility] Start: 06-04-2025 Influenza vaccination [facility] Start: 05-30-2025 Annual PCP Team Chronic Disease Visit Annual PCP Team Chronic Disease Visit [facility] Start: 05-15-2025 End: 05-15-2025 Patient encounter procedure [facility] [place] Comment on above: Medicare Wellness Medicare Wellness/HC C Gap Closure Start: 05-09-2025 Annual PCP Team Chronic Disease Visit Annual PCP Team Chronic Disease Visit [facility] Start: 05-09-2025 Anxiety Screening Anxiety Screening [facility] Start: 05-09-2025 BP Controlled (<130/80) BP Controlled (<130/80) [facility] Start: 05-09-2025 Depression Screening Depression Screening [facility] Start: 05-09-2025 Hepatitis C screening Hepatitis C Screening [facility] Comment on above: Postponed from 1964 (Declined at t his time) Start: 04-11-2025 End: 04-11-2025 Patient encounter procedure 04/11/2025 4:40 PM EDT Office Visit [facility] [place] [address] [facility] [place], [place] [id number] Enmanuel Carroll MD [address] [facility] [place] [address] Follow up - HCC Gap Closure [facility] [place] Comment on above: Follow up - HCC Gap Closure Start: 01-17-2025 BP Controlled (<130/80) BP Controlled (<130/80) [facility] Start: 11-21-2024 End: 11-21-2024 Patient encounter procedure 11/21/2024 8:20 AM EST Office Visit [facility] [place] [address] [place] [address] Enmanuel Carroll MD [address] [place], [place] [id number] 6 month follow up [facility] [place] Comment on above: 6 month follow up Start: 11-15-2024 Annual PCP Team Chronic Disease Visit Annual PCP Team Chronic Disease Visit [facility] Start: 11-15-2024 BP Controlled (<130/80) BP Controlled (<130/80) [facility] Start: 11-15-2024 Hepatitis B surface antibody level LDL Cholesterol [facility] Start: 10-04-2024 Advance Directive Discussion Advance Directive Discussion [facility] Start: 06-04-2024 Influenza [facility] Start: 05-30-2024 End: 05-30-2024 Patient encounter procedure 05/30/2024 2:20 PM EDT Office Visit [facility] [place] [address] [place] [address] Enmanuel Carroll MD [address] [place], [place] [id number] elevated PSA [facility] [place] Comment on above: elevated PSA Start: 05-15-2024 Hemoglobin A1c measurement HbA1C [facility] Start: 05-09-2024 End: 05-09-2024 Patient encounter procedure 05/09/2024 10:00 AM EDT Office Visit [facility] [place] [address] [place], [place] [id number] Susannah Nickerson APRN.INCINERATOR OPERATOR [address] [place], [place] [id number] 6 mo follow up [facility] [place] Comment on above: 6 mo follow up Start: 04-27-2024 BP CONTROLLED (<130/80) BP CONTROLLED (<130/80) [facility] Start: 04-20-2024 ANNUAL PCP TEAM CHRONIC DISEASE VISIT ANNUAL PCP TEAM CHRONIC DISEASE VISIT [facility] Start: 04-20-2024 HEPATITIS C SCREENING HEPATITIS C SCREENING [facility] Comment on above: Postponed from 1964 (Declined at t his time) Start: 04-20-2024 Hepatitis C screening Hepatitis C Screening [facility] Comment on above: Postponed from 1964 (Declined at t his time) Start: 04-12-2024 Hepatitis B surface antibody level LDL CHOLESTEROL [facility] Start: 02-25-2024 End: 03-10-2024 COVID & INFLUENZA A/B & RSV NAAT, ROUTINE [facility] Work Phone: Comment on above: Expected: 02/25/2024, Expires: Start: 01-06-2024 Hepatitis B screening URINE ALBUMIN:CREATININE RATIO [facility] Start: 01-02-2024 BP CONTROLLED (<130/80) BP CONTROLLED (<130/80) [facility] Start: 10-21-2023 3 comp foot exam completed DIABETIC FOOT EXAM [facility] Comment on above: Postponed from 05/09/2021 (Declined at t his time) Start: 10-21-2023 End: 12-21-2023 CBC panel - Blood by Automated count CBC Lab Routine Essential hypertension with goal blood pressure less than 130/80 Expected: 10/21/2023 (Approximate), Expires: 12/21/2023 [facility] Work Phone: Comment on above: Expected: 10/21/2023 (Approximate), Expi res: 12/21/2023 Start: 10-21-2023 End: 12-21-2023 Comprehensive metabolic 2000 panel - Serum or Plasma COMP METABOLIC PANEL Lab Routine Type 2 diabetes mellitus without complication, without long-term current use of insulin (HCC) Essential hypertension with goal blood pressure less than 130/80 Expected: 10/21/2023 (Approximate), Expires: 12/21/2023 [facility] Work Phone: Comment on above: Expected: 10/21/2023 (Approximate), Expi res: 12/21/2023 Start: 10-21-2023 End: 12-21-2023 Hemoglobin A1c in Blood HGB A1C Lab Routine Type 2 diabetes mellitus without complication, without long-term current use of insulin (HCC) Expected: 10/21/2023 (Approximate), Expires: 12/21/2023 [facility] Work Phone: Comment on above: Expected: 10/21/2023 (Approximate), Expi res: 12/21/2023 Start: 10-21-2023 End: 12-21-2023 Lipid 1996 panel - Serum or Plasma LIPID PANEL BASIC Lab Routine Pure hypercholesterolemia Expected: 10/21/2023 (Approximate), Expires: 12/21/2023 [facility] Work Phone: Comment on above: Expected: 10/21/2023 (Approximate), Expi res: 12/21/2023 Start: 10-13-2023 Hemoglobin A1c/Hemoglobin.total in Blood HBA1C [facility] Start: 10-04-2023 Behavioral Health Screening Behavioral Health Screening [facility] Start: 10-03-2023 DEPRESSION ASSESSMENT DEPRESSION ASSESSMENT [facility] Comment on above: Postponed from 10/04/2022 (Declined at t his time) Start: 09-09-2023 ANNUAL PCP TEAM CHRONIC DISEASE VISIT ANNUAL PCP TEAM CHRONIC DISEASE VISIT [facility] Start: 09-09-2023 BP CONTROLLED (<130/80) BP CONTROLLED (<130/80) [facility] Start: 09-09-2023 COVID-19 VACCINE (3 - Booster for Moderna series) COVID-19 VACCINE (3 - Booster for Moderna series) [facility] Comment on above: Postponed from 02/24/2021 (Declined at t his time) Start: 09-09-2023 COVID-19 VACCINE (3 - Moderna series) COVID-19 VACCINE (3 - Moderna series) [facility] Comment on above: Postponed from 02/24/2021 (Declined at t his time) Start: 09-09-2023 PNEUMOCOCCAL: 65+ (2 - PPSV23 if available, else PCV20) PNEUMOCOCCAL: 65+ (2 - PPSV23 if available, else PCV20) [facility] Comment on above: Postponed from 06/06/2018 (Declined at t his time) Start: 09-04-2023 Hepatitis B screening URINE ALBUMIN:CREATININE RATIO [facility] Start: 09-04-2023 Hepatitis B surface antibody level LDL CHOLESTEROL [facility] Start: 07-21-2023 End: 09-20-2023 Lipid 1996 panel - Serum or Plasma LIPID PANEL BASIC Lab Routine Pure hypercholesterolemia Expected: 07/21/2023 (Approximate), Expires: 09/20/2023 [facility] Work Phone: Comment on above: Expected: 07/21/2023 (Approximate), Expi res: 09/20/2023 Start: 06-04-2023 Covid-19 Vaccine () Covid-19 Vaccine () [facility] Start: 06-04-2023 Influenza vaccination [facility] Start: 03-05-2023 Hemoglobin A1c/Hemoglobin.total in Blood HBA1C [facility] Start: 10-06-2022 Adult depression screening assessment DEPRESSION SCREENING [facility] Start: 10-06-2022 ANNUAL PCP TEAM CHRONIC DISEASE VISIT ANNUAL PCP TEAM CHRONIC DISEASE VISIT [facility] Start: 10-06-2022 BP CONTROLLED (<130/80) BP CONTROLLED (<130/80) [facility] Start: 10-04-2022 ADVANCE DIRECTIVE DISCUSSION ADVANCE DIRECTIVE DISCUSSION [facility] Start: 10-04-2022 DEPRESSION ASSESSMENT DEPRESSION ASSESSMENT [facility] Start: 09-22-2022 Glaucoma screening Dilated Retinal Exam [facility] Start: 09-22-2022 Hepatitis C antibody, confirmatory test DILATED RETINAL EXAM [facility] Start: 06-04-2022 Influenza vaccination INFLUENZA (#1) [facility] Start: 04-16-2022 HEPATITIS C SCREENING HEPATITIS C SCREENING [facility] Comment on above: Postponed from 1964 (Declined at t his time) Start: 01-04-2022 Hemoglobin A1c/Hemoglobin.total in Blood HBA1C [facility] Start: 12-02-2021 Hepatitis B screening URINE ALBUMIN:CREATININE RATIO [facility] Start: 2021 RSV Vaccine (1 - 1-dose 75+ series) RSV Vaccine (1 - 1-dose 75+ series) [facility] Start: 10-04-2021 ADVANCE DIRECTIVE DISCUSSION ADVANCE DIRECTIVE DISCUSSION [facility] Start: 10-04-2021 DEPRESSION ASSESSMENT DEPRESSION ASSESSMENT [facility] Start: 08-28-2021 Hepatitis B surface antibody level LDL CHOLESTEROL [facility] Start: 06-01-2021 COVID-19 VACCINE (3 - Booster for Moderna series) COVID-19 VACCINE (3 - Booster for Moderna series) [facility] Start: 05-09-2021 3 comp foot exam completed DIABETIC FOOT EXAM [facility] Start: 05-09-2021 Diabetic foot examination Diabetic Foot Exam [facility] Start: 02-24-2021 COVID-19 VACCINE (3 - Booster for Moderna series) COVID-19 VACCINE (3 - Booster for Moderna series) [facility] Start: 06-24-2019 BP Controlled (<130/80) BP Controlled (<130/80) [facility] Start: 04-11-2019 PNEUMOCOCCAL: 65+ (2 - PPSV23 if available, else PCV20) PNEUMOCOCCAL: 65+ (2 - PPSV23 if available, else PCV20) [facility] Start: 04-11-2019 PNEUMOCOCCAL: 65+ (2 - PPSV23 or PCV20) PNEUMOCOCCAL: 65+ (2 - PPSV23 or PCV20) [facility] Start: 2006 RSV Vaccine (1 - 1-dose 60+ series) RSV Vaccine (1 - 1-dose 60+ series) [facility] Start: 1991 COLOGUARD (FIT-DNA) COLOGUARD (FIT-DNA) [facility] Start: [address] COLONOGRAPHY [facility] Start: 1991 FECAL OCCULT BLOOD FECAL OCCULT BLOOD [facility] Start: 1991 SIGMOIDOSCOPY SIGMOIDOSCOPY [facility] Start: 1964 HEPATITIS C SCREENING HEPATITIS C SCREENING [facility] Start: 1964 Hepatitis C screening Hepatitis C Screening [facility] End: 07-01-2026 CT Heart and Coronary arteries for calcium scoring WO contrast CT CALCIUM SCORING SELF PAY Radiology Routine Encounter for screening for cardiovascular disorders 1 Occurrences starting 06/01/2025 until 07/01/2026 [facility] Work Phone: Comment on above: 1 Occurrences starting 06/01/2025 until 07/01/2026 [facility] Immunizations Immunization Date Immunization Notes Care Provider [facility] 08-01-2024 influenza virus vacc ine, unspecified formulation Enmanuel Carroll MD Work Phone: [facility] 07-13-2023 influenza (HD-IIV4) vaccine, age 65+ yr, high dose, quadrivalent, PF (FLUZONE HIGH-DOSE) Susannah Nickerson DIRT BIKE MECHANIC.INCINERATOR OPERATOR Work Phone: [facility] Work Phone: 07-13-2023 influenza virus vacc ine, unspecified formulation Enmanuel Carroll MD Work Phone: [facility] 08-19-2022 influenza, injectabl e, quadrivalent, preservative free Dr. Enmanuel Carroll MD Work Phone: [facility] 08-19-2022 influenza, seasonal, injectable Enmanuel Carroll MD Work Phone: [facility] 08-19-2022 influenza virus vacc ine, unspecified formulation Nurse Wstr Work Phone: [facility] 08-04-2022 influenza (aIIV4) vaccine, age 65+ yr, quadrivalent, PF (FLUAD QUAD) Susannah Nickerson APRN.INCINERATOR OPERATOR Work Phone: [facility] Work Phone: 02-13-2022 pneumococcal polysaccharide vaccine, 23 valent Enmanuel Carroll MD Work Phone: [facility] 08-21-2021 influenza (aIIV4) vaccine, age 65+ yr, quadrivalent, PF (FLUAD QUADRIVALENT) Enmanuel Carroll MD Work Phone: [facility] 12-30-2020 COVID-19 vaccine, fu ll dose (MODERNA) Enmanuel Carroll MD Work Phone: [facility] Work Phone: 12-02-2020 COVID-19 vaccine, fu ll dose (MODERNA) Enmanuel Carroll MD Work Phone: [facility] Work Phone: 08-13-2020 influenza, high-dose , quadrivalent vaccine (FLUZONE HIGH DOSE QUADRIVALENT) Enmanuel Carroll MD Work Phone: [facility] Work Phone: 11-13-2019 influenza, injectabl e, quadrivalent, preservative free Enmanuel Carroll MD Work Phone: [facility] Work Phone: 11-13-2019 zoster vaccine recombinant Enmanuel Carroll MD Work Phone: [facility] Work Phone: 08-16-2019 influenza, injectabl e, quadrivalent, preservative free Dr. Enmanuel Carroll MD Work Phone: [facility] 08-16-2019 influenza, seasonal, injectable, preservative free Enmanuel Carroll MD Work Phone: [facility] Work Phone: 05-19-2019 zoster vaccine recombinant Enmanuel Carroll MD Work Phone: [facility] 08-03-2018 influenza, injectabl e, quadrivalent, preservative free Dr. Enmanuel Carroll MD Work Phone: [facility] 08-03-2018 influenza, seasonal, injectable, preservative free Enmanuel Carroll MD Work Phone: [facility] Work Phone: 07-04-2018 influenza nasal, unspecified formulation Enmanuel Carroll MD Work Phone: [facility] Work Phone: 04-11-2018 pneumococcal conjuga te vaccine, 13 valent Enmanuel Carroll MD Work Phone: [facility] Work Phone: 11-12-2017 influenza, injectabl e, quadrivalent, preservative free Enmanuel Carroll MD Work Phone: [facility] 10-11-2017 tetanus toxoid, redu ron diphtheria toxoid, and acellular pertussis vaccine, adsorbed Enmanuel Carroll MD Work Phone: [facility] Work Phone: 09-20-2014 influenza, injectabl e, quadrivalent, preservative free Dr. Enmanuel Carroll MD Work Phone: [facility] 09-20-2014 influenza, seasonal, injectable, preservative free Enmanuel Carroll MD Work Phone: [facility] Work Phone: 08-18-2014 influenza, seasonal, injectable Enmanuel Carroll MD Work Phone: [facility] 07-29-2011 influenza nasal, unspecified formulation Enmanuel Carroll MD Work Phone: [facility] Work Phone: 07-04-2011 influenza virus vacc ine, unspecified formulation Enmanuel Carroll MD Work Phone: [facility] Work Phone: 07-10-2009 influenza nasal, unspecified formulation Enmanuel Carroll MD Work Phone: [facility] 04-10-2009 pneumococcal vaccine , unspecified formulation Enmanuel Carroll MD Work Phone: [facility] Work Phone: 08-16-2006 influenza virus vacc ine, unspecified formulation Enmanuel Carroll MD Work Phone: [facility] Payers Date Payer Category Payer Self-pay 2019 Medicare HUMANA MEDICARE HUMANA MEDICARE PPO [id number] 2019-Present [phone] [place] [address] PPO [id number] 2019 Medicare HUMANA MEDICARE HUMANA MEDICARE PPO [id number] 2019-Present [phone] [address] [place] [address] PPO [id number] 2019 Medicare (Managed Care) HUMANA M EDICARE [id number] 2019 Medicare [id number] 2013 Unknown HOSPITAL/MEDICAL GENERIC MEDICAL GENERIC [id number] 2013-Present [phone] [place] [id number] Indemnity [id number] 2013 Unknown [id number] 2013 Unknown [id number] Unknown [id number] Unknown [id number] Unknown [id number] Unknown [id number] Unknown [id number] Unknown [id number] Unknown [id number] Unknown [id number] Unknown [id number] Social History Date Type Detail Facility Start: 03-01-2018 End: 08-09-2024 Tobacco smoking status MEIS Never smoked tobacco [facility] Start: 10-06-2021 End: 04-11-2025 Alcohol intake Current drinker of alcohol (finding) [facility] Start: 05-07-2020 History SDOH Alcohol Frequency 1 [facility] Start: 05-07-2020 History SDOH Alcohol Std Drinks 98 [facility] Start: 08-31-2016 History SDOH Alcohol Comment rarely [facility] Start: 05-07-2020 History SDOH Social Connections Phone 5 [facility] Start: 05-07-2020 History SDOH Social Connections Judaism 3 [facility] Start: 05-07-2020 History SDOH Social Connections Membership 2 [facility] Start: 05-07-2020 Education 12 [facility] Start: 1945 Sex Assigned At Male [facility] Start: 03-01-2018 End: 01-01-2023 Tobacco use and exposure Smokeless tobacco non-user [facility] Start: 05-07-2020 End: 04-20-2023 History of Social function [facility] Start: 05-07-2020 End: 04-20-2023 Social connection and isolation panel [facility] Do you belong to any clubs or organizations such as [employer], [employer], [employer] or athleBelly groups, or school groups? No [facility] Are you now , , , , never or living with a partner? [facility] How often to you hav e a drink containing alcohol? Never [facility] Start: 09-04-2012 How many standard drinks containing alcohol do you have on a typical day? Patient refused [facility] Do you feel stress - tense, restless, nervous, or anxious, or unable to sleep at night because your mind is troubled all the time - these days [OSQ] Only a little [facility] (I/We) worried juan c er (my/our) food would run out before (I/we) got money to buy more. Never true [facility] Start: 05-07-2020 Gender identity Identifies as male gender (finding) [facility] Start: 05-07-2020 Sexual orientation Heterosexual (finding) [facility] Do you belong to any clubs or organizations such as [employer], [employer], [employer] or [employer], or school groups? Yes [facility] How often to you hav e a drink containing alcohol? 2-4 times a month [facility] How many standard dr inks containing alcohol do you have on a typical day? 1 or 2 [facility] How often to you hav e a drink containing alcohol? Monthly or less [facility] Start: 04-30-2020 Tobacco Use Tobacco Use [facility] Medical Equipment Procedure Code Equipment Code Equipment Origin al Text Equipment Identifier Dates Check blood suga rs three times daily or as directed [id number], [id number] Start: 11-04-2007 Comment on above: Check blood sugars t hree times daily or as directed Functional Status Date Assessment Result Facility 11-29-2014 Are you deaf, or do you have serious difficulty hearing No 11/29/2014 10:02 AM Elda Decker LPN No [facility] 11-29-2014 Are you blind, or do you have serious difficulty seeing, even when wearing glasses No 11/29/2014 10:02 AM Elda Decker LPN No [facility] 11-29-2014 Do you have serious difficulty walking or climbing stairs No 11/29/2014 10:02 AM Elda Decker LPN No [facility] 11-29-2014 Do you have difficul ty dressing or bathing No 11/29/2014 10:02 AM Elda Decker LPN No [facility] 11-29-2014 Because of a physica l, mental, or emotional condition, do you have difficulty doing errands alone such as visiting a physician's office or shopping No 11/29/2014 10:02 AM Elda Decker LPN No [facility] Mental Status Date Assessment Result Facility 11-29-2014 Because of a physica l, mental, or emotional condition, do you have serious difficulty concentrating, remembering, or making decisions No 11/29/2014 10:02 AM Elda Decker LPN No [facility] Clinical Notes 02-28-2016 to 07-12-2025 Note Date & Type Note Facility 07-12-[address] [facility] 07-12-2025 Progress note Note Date/Time July 12, 2025 3:22pm [facility] [address] [place] [address] OFFICE VISIT Date of Service: 07/12/25 MR#: [id number] Acct: [id number] Name: SUDHEER HERNANDEZ Rep #: [id number] : 1945 Provider: Dr. Celena Campos MD Age/Sex: 79/M Location: [facility] Status: Signed HPI HPI History of Present [...] in blood pressure post-exercise, leading to a code blue situation. He also mentions a heart catheterization [...] Monitor Intake Visit Reasons: ABN CCTA (SELF) Chinese Medicine Practitioner Required: No Accompanied by: Significant Other Is patient in pain?: No Allergies No Known Allergies Allergy (Verified 07/12/25 15:01) Medications ?Medication ?Instructions ?Recorded ?Confirmed ?Type metformin 500 mg tablet 1,000 mg PO BIDCM 09/25/13 1 History multivitamin 1 ea PO DAILY 04/30/2007/12 History -spo-wcz-other fplwl7n-kovz 2 ea PO DAILY 07/12/25 History oil [...] SOB with activity, SOB at rest, SOB orthopnea\SOB lying down or Cough GI GI: Negative [...] Acute Plan: # Atherosclerotic heart disease of [place] coronary artery without angina pectoris (I25.10) Coronary [...] is due for blood work at the [facility] and depending on those findings further recommendations [...] Today I25.10 - Atherosclerotic heart disease of [place] coronary artery without angina pectoris Nuclear Stress [...] applicable) CC: Dr. Enmanuel Carroll MD ~ [facility] [employer] Work Phone: 1(677) 565-724208-29-2025 Telephone encounter Note* Telephone Encounter - Martina Monahan MA - 06/01/2025 1:43 PM EDT Referral placed and faxed with order Left message for patient he can call [facility] to schedule Martina Monahan MA [facility]08-29-2025 Miscellaneous Notes* Telephone Encounter - Martina Monahan MA - 06/01/2025 1:43 PM EDT Referral placed and faxed with order Left message for patient he can call [facility] to schedule Martina Monahan MA * Telephone Encounter - Maddy Lowe APRN.CNS - 06/01/2025 11:45 AM EDT OK, order filed, please process. * Telephone Encounter - Martina Monahan MA - 06/01/2025 9:00 AM EDT Patient is requesting only CT calcium score test patient advised wants to go to [facility] since free Martina Monahan MA * Telephone [...] please. Please advise patient. documented in this encounterJ.[facility]. [facility] Telephone encounter Note * Telephone Encounter - Maddy Lowe APRN.CNS - 06/01/2025 11:45 AM EDT OK, order filed, please process. [facility]08-29-2025 Telephone encounter Note* Telephone Encounter - Martina Monahan MA - 06/01/2025 9:00 AM EDT Patient is requesting only CT calcium score test patient advised wants to go to [facility] since free Martina Monahan MA [facility]08-28-2025 Telephone encounter Note* Telephone Encounter - Jaye Eugene RN - 05/31/2025 7:28 PM EDT Perhaps need to call pt and confirm what veins he wants ultrasound on and is he talking about the Calcium CT score measuring calcium buildup in the coronary arteries. Has pt checked with insurance company for coverage on testing? [facility]08-28-2025 Telephone encounter Note* Telephone Encounter - Juju Vega - 05/31/2025 3:33 PM EDT Patient had message on wait list requesting the follow orders from PCP. Pt is requesting order for ultrasound, veins and calcium to be tested please. Please advise patient. [facility]07-09-2025 Instructions* Patient Instructions* Enmanuel Carroll MD [...] kidney function, cholesterol, urine microalbumin) at the [place];we will update your records here to avoid duplicate tests. - Keep your hemoglobin A1c in the mid-6% range; report any significant lows or highs. - Schedule a primary care follow-up appointment in 6 months. - Plan your next annual wellness visit under your [employer] Medicare Advantage plan in October (calendar-year benefit). Screening schedule The following prevention plan [...] review all the medicines you take, even quvf-hdn-wishyre medicines. As you get older, the way [...] have certain medical conditions. documented in this encounterJ.[facility]. [facility]-2025 NoteHNO ID: [id number] Author: ENMANUEL CARROLL MD Service: ? Author Type: Physician Type: Progress Notes Filed: 05/04/2025 00:43 Note Text: This note was created using [employer]. Subjective Sudheer Hernandez is a 79 year old male. SUBJECTIVE: Sudheer Hernandez is a 79-year-old male with a history of DM, presenting for a Medicare Annual Wellness Visit. Sudheer reports his health as very good. He exercises approximately 20 minutes per session, [...] care of multiple specialists, including a urologist, agricultural labor camp manager, seed and fertilizer specialist, and primary care physician at the [place]. He has a history of BPH and is monitored by his urologist, Dr. Mathews, every 6 months. He had an eye exam in late October and has a follow-up scheduled for next October. He also sees a seed and fertilizer specialist every 3-4 months for foot exams. He was previously under the care of a diabetic pharmacist, Dr. Khalil, but was released from care due to improved glycemic control. He continues to see his primary care physician, Dr. Roger, at the [place] every 6 months. Sudheer is currently on [...] SpO2 95% BM (more content not included)...[facility]07-09-2025 History of Present illness Narrative* Enmanuel Carroll MD - 04/11/2025 5:38 PM EDT Images from the original note were not included. This note was created using [employer]. Subjective Sudheer Hernandez is a 79 year old male. SUBJECTIVE: Sudheer Hernandez is a 79-year-old male with a history of DM, presenting for a Medicare Annual Wellness Visit. Sudheer reports his health as very good. He exercises approximately 20 minutes per session, [...] care of multiple specialists, including a urologist, agricultural labor camp manager, seed and fertilizer specialist, and primary care physician at the [place]. He has a history of BPH and is monitored by his urologist, Dr. Mathews, every 6 months. He had an eye exam in late October and has a follow-up scheduled for next October. He also sees a seed and fertilizer specialist every 3-4 months for foot exams. He was previously under the careof a diabetic pharmacist, Dr. Khalil, but was released from care due to improved glycemic control.He continues to see his primary care physician, Dr. Roger, at the [place] every 6 months. Sudheer is currently on [...] He expresses a desire to lower his KaL1kctscoef. PAST MEDICAL HISTORY Diagnosis Date Abdominal pain, [...] memory normal. Judgment: Judgment normal. Latest Ref Rng 11/15/2023 04/04/2025 Protein, Total 6.3 - 8.0 [...] below visit was discussed with the patient/authorized pharmacy sales representative; all questions welcomed and answered. Patient/authorized pharmacy sales representative agreed to proceedSudheer Hernandez is [...] Outside specialists seen: Dr. Barragan (urology at [facility]); [place] for [place] and seed and fertilizer specialist and primarycare provider. Was seeing PharmD. Medical/Family [...] provided # Medicare annual wellness visit, subsequent (Z00.00) - Completed Medicare annual wellness visit. - Discussed insurance coverage with [employer], confirming eligibility for the visit today. [...] urology. Enmanuel Carroll MD Recording using ambient Povio software for draft documentation of the visit was discussed with the patient/authorized pharmacy sales representative; all questions welcomed and answered. Patient/authorized pharmacy sales representative agreed to proceed documented in this encounterJ.[facility]. [facility]07-[facility]-2025 NoteHNO ID: [id number] Author: ?, ?, ? Service: ? Author [...] reach patient: Left message MyChart message sent HCC related Navigation Signature: Marilyn Miller April 11, 2025 10:[address] [facility]07-09-2025 History of Present illness Narrative* Marilyn [...] reach patient: Left message MyChart message sent HCC related Navigation Signature: Marilyn Miller April 11, 2025 10:17 AM documented in this encounterJ.W. [facility]-2025 NotePatient Outreach (NETNAV) SUDHEER HERNANDEZ ([id number]) 1945 M Date Time Provider Department 04/11/25 ENMANUEL CARROLL During your visit today, we recorded the following information about you: Marilyn Calloway 04/11/2025 10:23 AM Signed POPULATION HEALTH NAVIGATION OUTREACH Action/FYI Patient outreach for HCCs HM due; KED, BENJAMIN Lvm and sent iLinkhart to close gaps/ pt sees PCP today. Reason for Outreach Care Gap/HCC or Scheduling Wellness Visits Care Gaps due: Diabetic Eye Exam KEPb Patient Contacted: Unable or unnecessary to reach patient: Left message MyChart message sent HCC related Navigation Signature: Marilyn [...] Encounter Status:Closed by MARILYN CALLOWAY on 04/11/25[facility]06-09-2025 NoteHNO ID: [id number] Author: HECTOR BRYAN MA Service: ? Author Type: Arrow Point Attacher Type: Progress Notes Filed: 03/12/2025 15:09 Note Text: POPULATION HEALTH NAVIGATION OUTREACH Action/FYI Gaps due: A1C KED DIABETIC RETINAL EXAM HCCs Med adherence: Rosuvastatin, Lisinopril, ezetimibe, jardiance, glipizide, metformin LVM/MCM/Updated notes. Reason for Outreach Care Gap/HCC or Scheduling Wellness Visits Care Gaps due: Diabetic Eye Exam HBA1C KED Patient Contacted: Unable or unnecessary to reach patient: Left message [employer] message sent HCC related Updated appointment notes Navigation Signature: Hector Bryan MA March 12, 2025 3:04 [facility]06-09-2025 History of Present illness Narrative* Hector [...] or unnecessary to reach patient: Left message [employer] message sent HCC related Updated appointment notes Navigation Signature: Hector Bryan MA March 12, 2025 3:04 PM documented in this encounterJ.W. [facility]06-09-2025 NotePatient Outreach (NETNAV) SUDHEER HERNANDEZ ([id number]) 1945 M Date Time Provider Department 03/12/25 [...] or unnecessary to reach patient: Left message [employer]t message sent HCC related Updated appointment notes [...] Encounter Status:Closed by HECTOR BRYAN on 03/12/25[facility] 02-27-2025 NoteHNO ID: [id number] Author: LULA NOVA LPN Service: ? Author Type: LICENSED NURSE Type: Progress Notes Filed: 02/27/2025 16:35 Note Text: LEFT MESSAGE FOR PATIENT TO CALL OFFICE.[facility]05-23-2025 NoteHNO ID: [id number] Author: ENMANUEL CARROLL MD Service: ? Author [...] add more labs if patient wants them[facility] Note HNO ID: [id number] Author: IMELDA TEAGUE MA Service: ? Author Type: [place] Attacher Type: Progress Notes Filed: 02/20/2025 14:51 Note Text: POPULATION HEALTH NAVIGATION OUTREACH Action/ Spoke with patient Scheduled follow up Labs sent to PCP Retinal exam outside [facility] H@H sent via SeeVolutiont Reason for Outreach [facility] Care Gaps due: Follow-up Appointment Diabetic Eye Exam KED Patient Contacted: Spoke to patient/parent/or legal guardian Patient identified by name and : Yes [facility] actions taken: Patient scheduled/pended orders: Follow-up Appointment KED 04/11/2025 in [facility] with ENMANUEL CARROLL - Follow up 05/15/2025 in [facility] with ENMANUEL CARROLL - Medicare Wellness, due Navigation Signature: Imelda Teague MA February 20, 2025 2:49 [facility]05-20-2025 NoteHNO ID: [id number] Author: ALBERTO DELCID RN Service: ? Author [...] Alberto Delcid RN February 20, 2025 1:37 [facility]05-20-2025 NotePatient Outreach (AMBCMG) SUDHEER HERNANDEZ ([id number]) 1945 M Date Time Provider Department 02/20/25 ALBERTO DELCID [facility] During your visit today, we recorded the [...] Labs sent to PCP Retinal exam outside [facility] H@H sent via See[employer]olutiont Reason for Outreach [facility] Care Gaps due: Follow-up Appointment Diabetic Eye Exam KED Patient Contacted: Spoke to patient/parent/or legal guardian Patient identified by name and : Yes [facility] actions taken: Patient scheduled/pended orders: Follow-up Appointment ANA M 04/11/2025 in [facility] with ENMANUEL CARROLL - Follow up 05/15/2025 in [facility] with ENMANUEL CARROLL - Medicare Wellness, due Navigation Signature: Imelda Teague MA February [...] [E11.42] Order(s):ALBUMIN/CREATININE RATIO, URINE [SQUACR] Order #: [id number] FUTURE HEMOGLOBIN A1C [HWNBA3T] Order #: [id number] FUTURE Prescriptions as of 02/27/2025 - COQ10, [...] 02/28/2016 Apnea [R06.81] (more content not included)...[facility] 12-18-2024 NoteHNO ID: [id number] Author: IMELDA TEAGUE MA Service: ? Author Type: Arrow Point Attacher Type: Progress Notes Filed: 12/18/2024 12:06 Note Text: POPULATION HEALTH NAVIGATION OUTREACH Action/FYI VM and Mychart sent Due for follow up Hm due- retinal exam, urine albumin, A1c, influenza Reason for Outreach Care Gap/HCC or Scheduling Wellness Visits Care Gaps due: Follow-up Appointment Diabetic Eye Exam HBA1C KED Flu Vaccine Patient Contacted: Unable or unnecessary to reach patient: Left message Asurvesthart message sent Navigation Signature: Imelda Teague MA December 18, 2024 8:[address] [facility]03-17-2025 History of Present illness Narrative* Imelda [...] or unnecessary to reach patient: Left message Asurvesthart message sent Navigation Signature: Imelda Teague MA December 18, 2024 8:34 AM documented in this encounterJ.[facility]. [facility]03-17-[facility] NotePatient Outreach (NETNAV) SUDHEER HERNANDEZ ([id number]) 1945 Bill Date Time Provider Department 12/18/24 IMELDA TEAGUE During your visit today, we [...] Encounter Status:Closed by IMELDA TEAGUE on 12/18/24[facility] 11-27-2024 NoteHNO ID: [id number] Author: IMELDA TEAGUE MA Service: ? Author Type: Arrow Point Attacher Type: Progress Notes Filed: 11/27/2024 14:56 Note [...] Imelda Teague MA November 27, 2024 2:42 [facility]02-24-2025 History of Present illness Narrative* Imelda [...] or unnecessary to reach patient: Left message AsurvestharLawrence[place] [employer] message sent Updated appointment notes Navigation Signature: Imelda Teague MA November 27, 2024 2:42 PM documented in this encounterJ.W. [facility]02-24-2025 NotePatient Outreach (NETNAV) SUDHEER HERNANDEZ ([id number]) 1945 Bill Date Time Provider Department 11/27/24 IMELDA TEAUGE During your visit today, we recorded the [...] or unnecessary to reach patient: Left message Asurvesthart message sent Updated appointment notes Navigation Signature: [...] Encounter Status:Closed by IMELDA TEAGUE on 11/27/24[facility] 05-30-2024 Telephone encounter Note* Telephone Encounter - Lynne Scott LPN - 05/30/2024 7:54 PM EDT Made several calls throughout the day to attempt to get the lab results. Finally did get a fax number to fax request for the results. Patient aware. Lynne Scott LPN [facility]08-27-2024 Miscellaneous Notes* Telephone Encounter - Lynne [...] for abnormal lab that was done [place]. Pt requesting office get results from [place] for appt today. # [phone] Fax# [phone] This nurse tried to call office but was transferred a couple of times and did not reach office needed. Faxed lab result request to [place] at fax number given. Isis Painting LPN documented in this encounterJ.W. Ruby [facility]08-27-2024 Instructions* Patient Instructions* Enmanuel Carroll MD [...] can choose to see a urologist at [facility] or consult with Dr. Augustin Foster, Dr. Chung West, or Dr. Rell Alvarez at [place]. - Please let us know if you experience any new symptoms, such as pain with voiding, unexplained weight loss, fevers, chills, or blood in the urine. documented in this encounterJ.W. [facility] Hospital08-27-2024 History of Present illness Narrative* Enmanuel Carroll MD - 05/30/2024 3:17 PM EDT This note was created using [employer]. Subjective Sudheer Hernandez is a 78 year [...] having any further procedures done locally in [place] rather than traveling to [place]. Patient denies dysuria, hematuria, unexplained weight loss, [...] Chung West, and Dr. Rell Alvarez in [place]. - Placed a consult order for urology. - Advised patient to follow up with a urologist to discuss further diagnostic and treatment options. Enmanuel Carroll MD documented in this encounterJ.W. [facility]08-27-2024 Telephone encounter Note * Telephone Encounter - Isis Painting LPN - 05/30/2024 8:37 AM EDT Pt calls today to report that he has an appt with pcp for abnormal lab that was done [place]. Pt requesting office get results from [place] for appt today. # [phone] Fax# [phone] This nurse tried to call office but was transferred a couple of times and did not reach office needed. Faxed lab result request to [place] at fax number given. Isis Painting LPN [facility]08-26-2024 Telephone encounter Note* Telephone Encounter - Deborah Marquez RN - 05/29/2024 4:56 PM EDT Patient calling with request for appointment to discuss elevated PSA and options with PCP. Patient had test done @ [facility] about one week ago. He will call [...] Appointment scheduled per request. Deborah Marquez RN [facility]08-26-2024 Miscellaneous Notes* Telephone Encounter - Deborah Marquez RN - 05/29/2024 4:56 PM EDT Patient calling with request for appointment to discuss elevated PSA and options with PCP. Patient had test done @ [facility] about one week ago. He will call [...] request. Deborah Marquez RN documented in this encounterJ.W. [facility]08-06-2024 Instructions* Patient Instructions* Enmanuel Carroll MD [...] help with neuropathy symptoms. This is available [id number]. - Continue wearing your custom-fit support socks [...] review all the medicines you take, even chfj-xdb-ylkkzil medicines. As you get older, the way [...] have certain medical conditions. documented in this encounterJ.W. [facility]08-06-2024 History of Present illness Narrative* Enmanuel Carroll MD - 05/09/2024 9:57 AM EDT Images from the original note were not included. This note was created using [employer]. Subjective Sudheer Hernandez is a 78 year [...] His blood sugar readings are now running pretty good, with a recent reading of 124 in [...] shaky during these episodes but reports feeling a little bit light-headed. He inquires about the possibility of reducing [...] F) Resp 16 Ht 181.5 cm (5' 11.46) Wt 97.6 kg (215 lb 2.7 oz) [...] as of this encounter: 181.5 cm (5' 11.46). Weight as of this encounter: 97.6 kg [...] content normal. Judgment: Judgment normal. Latest Ref Rng 09/04/2022 04/12/2023 11/15/2023 Protein, Total 6.3 - [...] record. Outside specialists seen: [facility] Medical/Family history review Reviewed and updated problem [...] F) Resp 16 Ht 181.5 cm (5' 11.46) Wt 97.6 kg (215 lb 2.7 oz) [...] time. Enmanuel Carroll MD documented in this encounterJ.W. [facility]05-24-2024 History of Present illness Narrative* Adela Arellano APRN.[facility] - 02/25/2024 3:33 PM EDT CC: Patient [...] & CA, R & L heart ; mild CAD SKIN GRAFT PROCEDURE 10/04/1966 Right leg, shot in [place] STRESS TEST W/PHY SUPERVISION 10/04/1999 ALLERGIES Patient [...] tablets by mouth once daily. Taking from [place] once daily blood sugar diagnostic(ONE TOUCH [...] Patient agreeable to treatment plan. Adela Arellano APRN.INCINERATOR OPERATOR documented in this encounterJ.W. [facility]04-16-2024 History of Present illness Narrative* Talon [...] 116/73, pulse 74, height 180.3 cm (5' 11), weight 100.2 kg (221 lb). Both the [...] but no other pathology. documented in this encounterJ.W. [facility]02-12-2024 History of Present illness Narrative* Susannah Nickerson APRN.INCINERATOR OPERATOR - 11/15/2023 1:54 PM EST SUBJECTIVE Sudheer [...] 114/72 Pulse 74 Resp 16 Ht 5' 11 (1.80m) Wt 222 lb (100.7kg) BMI 30.98 [...] up on chronic conditions and medications.. Susannah iNckerson APRN-CADEN documented in this encounterJ.W. Ruby [facility]09-12-2023 Nurse Note* Millie Banks RN - [...] or questions.Millie Banks RN documented in this encounterJ.W. Ruby [facility] Hospital09-06-2023 History of Present illness Narrative* Talon [...] tolerated the procedure well. documented in this encounterJ.W. Ruby [facility] Hospital09-05-2023 Instructions* Patient Instructions* Maria Elena Ernandez [...] feel free to call our office at [phone] and ask to be transferred to General Surgery. Thank you for choosing [facility] - General [facility]. Instructions After Skin Excison [...] or even hot tub. documented in this encounterJ.W. Ruby [facility] Hospital09-05-2023 Nurse Note* Maria Elena Ernandez LPN [...] Maria Elena Ernandez LPN documented in this encounterJ.W. [facility]07-18-2023 Instructions* Patient Instructions* Enmanuel Carroll MD [...] can keep giving blood. documented in this encounterJ.W. [facility] Hospital07-18-2023 History of Present illness Narrative* Enmanuel Carroll MD - 04/20/2023 3:32 PM EDT Images from the original note were not included. This note was created using Azale[employer]. Subjective Sudheer Hernandez is a 77 year [...] [facility] every 3 months through seed and fertilizer specialist. PSA went up to 6 and saw [...] sleep. Enmanuel Carroll MD documented in this encounterJ.W. [facility]06-21-2023 History of Present illness Narrative* Lola [...] 24, 2023 7:57 AM documented in this encounterJ.W. [facility] Hospital03-31-2023 Instructions* Patient Instructions* Jennifer Armijo APRN.CNP - 01/01/2023 2:36 PM EDT Go to [facility] Present for us will call with results. documented in this encounterJ.W. Ruby [facility] Hospital03-31-2023 History of Present illness Narrative* Jennifer ArmijoLILIBETH.INCINERATOR OPERATOR - 01/01/2023 2:31 PM EDT Images from the original note were not included. Subjective The history is provided by the patient. No bilingual speech language pathologist was used. HPI Sudheer Hernandez is a 77 year old male who presents today for CC of pain in upper leg that started over the past 24 hours and is worse. There is a palpable lump. He traveled 2 weeks ago to [place].He is not on a blood thinner. BP [...] have confirmed and edited as necessary, the [facility] Review of Systems Constitutional: Negative for [...] Able to get Stat us today at [facility] will call with results. - US DVT [...] evaluation. Jennifer Armijo APRN.CADEN documented in this encounterJ.W. Ruby [facility] Hospital01-31-2023 Miscellaneous Notes* Telephone Encounter - Lula [...] Nystatin ointment 2-3 times daily. Patient uses [facility] in [place]. Lynne Scott LPN * Telephone Encounter - Marilyn Miller - 11/02/2022 12:26 PM EST Sudheer is calling with redness/soreness at the head of his penis. He thought it may be another UTI from the jardiance, but he does not have any urinary symptoms or fever. He is using a cream he has used before and it is helping. Please call patient at [phone] (he will have the name of the cream when the nurse calls back. His pharmacy is: [facility] in [place]. documented in this encounterJ.W. [facility] Hospital10-12-2022 History of Present illness Narrative* Lola Anand MA - 07/15/2022 9:49 AM EDT POPULATION HEALTH NAVIGATION OUTREACH Action/FYI left message on machine to return call [employer] message sent to patient Pt identified by name and : NO Outreach Outcome/Action Unable to reach patient: Left message Asurvesthart message sent Did you use a PCP [...] 15, 2022 9:49 AM documented in this encounterJ.W. Ruby [facility] Hospital07-02-2022 Miscellaneous Notes* Telephone Encounter - Marquita Alexis RN - 04/04/2022 8:36 AM EDT Pt called and is notified of providers results and instructions. Pt voices understanding. Sent message to Pt through [employer]. Marquita Alexis RN * Telephone Encounter - [...] versus IM department or urologist. Sent a [employer] message including above. * Telephone Encounter - [...] callsomething in he uses [facility] in [place]. Please call and advise. documented in this encounterJ.W. [facility] Hospital07-14-2021 History of Past illness Narrative* Problem [...] of this encounter (statuses as of 05/24/2023) [facility] History of Past illness Narrative* Problem [...] of this encounter (statuses as of 06/09/2023) [facility] History of Past illness Narrative* Problem [...] of this encounter (statuses as of 06/15/2023) [facility] History of Past illness Narrative* Problem Noted Date Diagnosed Date Resolved Date Uncontrolled type 2 diabetes mellitus with hyperglycemia 04/16/2021 05/24/2023 Overview: Improved glucose since started checking again in April (every other day, once to a few times a day).Down to 80s last night and today Apnea 02/28/2016 07/08/2016 Overview: witnessed by documented as of this encounter (statuses as of 11/15/2023) [facility]07-[facility] History of Past illness Narrative* Problem Noted Date Diagnosed Date Resolved Date Uncontrolled type 2 diabetes mellitus with hyperglycemia 04/16/2021 05/24/2023 Overview: Improved glucose since started checking again in April (every other day, once to a few times a day).Down to 80s last night and today Apnea 02/28/2016 07/08/2016 Overview: witnessed by documented as of this encounter (statuses as of 01/19/2024) [facility]05-27-2016 History of Past illness Narrative* Problem Noted Date Resolved Date Apnea 02/28/2016 07/08/2016 Overview: witnessed by Type 2 diabetes mellitus, controlled 06/01/2005 10/06/2021 documented as of this encounter (statuses as of 04/04/2022) [facility]05-[facility]2016 History of Past illness Narrative* Problem Noted Date Resolved Date Apnea 02/28/2016 07/08/2016 Overview: witnessed by Type 2 diabetes mellitus, controlled 06/01/2005 10/06/2021 documented as of this encounter (statuses as of 07/15/2022) [facility] of Past illness Narrative* Problem Noted Date Resolved Date Apnea 02/28/2016 07/08/2016 Overview: witnessed by Type 2 diabetes mellitus, controlled 06/01/2005 10/06/2021 documented as of this encounter (statuses as of 11/03/2022) [facility] of Past illness Narrative* Problem Noted Date Resolved Date Apnea 02/28/2016 07/08/2016 Overview: witnessed by Type 2 diabetes mellitus, controlled 06/01/2005 10/06/2021 documented as of this encounter (statuses as of 01/02/2023) [facility] History of Past illness Narrative* Problem Noted Date Resolved Date Apnea 02/28/2016 07/08/2016 Overview: witnessed by Type 2 diabetes mellitus, controlled 06/01/2005 10/06/2021 documented as of this encounter (statuses as of 01/02/2023) [facility] History of Past illness Narrative* Problem Noted Date Resolved Date Apnea 02/28/2016 07/08/2016 Overview: witnessed by Type 2 diabetes mellitus, controlled 06/01/2005 10/06/2021 documented as of this encounter (statuses as of 03/24/2023) [facility]Evaluation [facility]* Diagnosis Acute pain of right thigh- Primary [facility] Acute pain of right thigh [facility] Diagnosis Pure hypercholesterolemia- Primary Type [...] removal of sutures [facility] Diagnosis Mixed hyperlipidemia- Primary Diabetic polyneuropathy associated with type 2 diabetes mellitus (HCC) Essential hypertension with goal blood pressure less than 130/80 VENU (obstructive sleep apnea) Obstructive sleep apnea (adult) (pediatric) Obesity, Class I, BMI 30-34.9 Obesity, unspecified documented in this encounter [facility]* Diagnosis Itching- Primary Unspecified pruritic disorder Rash Rash and other nonspecific skin eruption documented in this encounter [facility] note* Diagnosis URI, acute- Primary Acute upper respiratory infections of unspecified site [facility]* Diagnosis Elevated PSA, between 10 and less than 20 ng/ml- Primary Elevated prostate specific antigen (PSA) [facility]* Diagnosis Medicare annual wellness visit, subsequent- [...] single bacterial disease documented in this encounter [facility] noteNo assessment information availableWCleveland Clinic Luther[facility] Work Phone: Evaluation note* Diagnosis Medicare [...] diabetes mellitus (HCC) documented in this encounter [facility]* Diagnosis Encounter for screening for cardiovascular disorders- Primary Screening for other and unspecified cardiovascular conditions documented in this encounter [facility] note* Diagnosis Onset Date Resolution Status Admit Date Abnormal findings on diagnostic imaging of heart and coronary circulation acute July 12, 2025 2:56pm Diabetes acute July 12, 025 2:56pm High cholesterol acute July 12, 2025 2:56pm Hypertension chronic July 12, 2025 2:56pm [facility] Work Phone: Reason for referral (narrative)* Diagnostic Procedure Only (Urgent) - Closed Specialty Diagnoses / Procedures Referred By Contnadir t Referred To Contact US IMAGING Diagnoses Acute pain of right thigh Procedures US DVT LOWER RIGHT DUP-SCAN XTR VEINS UNILATERAL/LIMITED STUDY Aleksander, Jennifer, DIRT BIKE MECHANIC.INCINERATOR OPERATOR [id number] [place] [address] Us Imaging Referral ID Status Reason Start Date Expiration Date V isits Requested Visits Authorized [id number] Closed Auto-Generate d Referral 01/01/2023 01/31/2024 1 1 [facility] for referral (narrative)* Diagnostic Procedure Only (Urgent) - Closed Specialty Diagnoses / Procedures Referred By Contac t Referred To Contact US IMAGING Diagnoses Acute pain of right thigh Procedures US DVT LOWER RIGHT DUP-SCAN XTR VEINS UNILATERAL/LIMITED STUDY Jennifer Armijo APRN.INCINERATOR OPERATOR [id number] [id number] [facility] Imaging Referral ID Status Reason Start Date Expiration Date V isits Requested Visits Authorized [id number] Closed Auto-Generate d Referral 01/01/2023 01/31/2024 1 1 [facility] for referral (narrative)No reason for referral information availableWCleveland Clinic Luther[facility] Hospital Work Phone: reason for visit Narrative* Diagnostic Procedure Only (Urgent) - Closed Specialty Diagnoses / Procedures Referred By Contac t Referred To Contact US IMAGING Diagnoses Acute pain of right thigh Procedures US DVT LOWER RIGHT DUP-SCAN XTR VEINS UNILATERAL/LIMITED STUDY Jennifer Armijo APRN.INCINERATOR OPERATOR [id number] [place] [id number] [facility] Referral ID Status Reason Start Date Expiration Date V isits Requested Visits Authorized [id number] Closed Auto-Generate d Referral 01/01/2023 01/31/2024 1 1 [facility] Advance Directives No Advanced Directives Records FoundDocuments on File Type Date Recorded Patient Travelift Operator Expl anation Advance Directive(s) 08/31/2016 1:20 PM Documents on File Type Date Recorded Patient Travelift Operator Expl anation Advance Directive(s) 09/23/2022 9:21 AM Documents on File Type Date Recorded Patient Travelift Operator Expl anation Advance Directive(s) 09/23/2022 9:21 AM Summary Purpose Family History No Family History Records Found Relationship Condition Age at Onset Recorded Date/T agapito sister Malignant neoplasm Unknown Diabetes mellitus Unknown Reason for Referral Specialty Diagnoses / Procedures Referred By Ken kwan Referred To Contact General Surgery Diagnoses Sebaceous cyst Seborrheic keratosis Procedures CONSULT TO GENERAL SURGERY OFFICE/OUTPATIENT [facility] 60-74 MINUTES Enmanuel Carroll MD [address] [place] [address] Referral ID Status Reason Start Date Expiration Date V isits Requested Visits Authorized [id number] Closed PCP Requested Referral 04/20/2023 04/19/2024 1 1 Specialty Diagnoses / Procedures Referred By Ken kwan Referred To Contact Dermatology Diagnoses Itching Rash Procedures CONSULT TO DERMATOLOGY Talon Ruiz MD [address] [facility] [place] [address] Beatrice Madrigal MD [address] [facility] [place] [address] Referral ID Status Reason Start Date Expiration Date Visits Requested Visits Authorized [id number] Ref Not Required PCP Requested Referral 01/18/2024 01/17/2025 1 1 Specialty Diagnoses / Procedures Referred By Ken kwan Referred To Contact Urology Diagnoses Elevated PSA, between 10 and less than 20 ng/ml Procedures CONSULT TO UROLOGY OFFICE/OUTPATIENT [facility] 60 MINUTES Enmanuel Carroll MD [address] [phone] Referral ID Status Reason Start Date Expiration Date Visits Requested Visits Authorized [id number] Authorized PCP Requested Referral 05/30/2024 05/30/2025 1 1 Chief Complaint and Reason for Visit Chief Complaint Admit Date PSA April 18, 2025 11:4 1am Chief Complaint Admit Date PSA April 18, 2025 11:4 1am SCREENING June 21, 2025 7:13am CT CALCIUM SCORING June 21, 2025 7:14am ABN CCTA (SELF) July 12, [...] or prosecute any alcohol or drug abuse patient.[facility] HospitalIn the event this information is protected by the Federal Confidentiality of Alcohol and Drug Abuse Patient Records regulations: The Federal rules restrict any use of the information to criminally investigate or prosecute any alcohol or drug abuse patient.[facility] HospitalIn the event this information is protected by the Federal Confidentiality of Alcohol and Drug Abuse Patient Records regulations: The Federal rules restrict any use of the information to criminally investigate or prosecute any alcohol or drug abuse patient.[facility] HospitalIn the event this information is protected by the Federal Confidentiality of Alcohol and Drug Abuse Patient Records regulations: The Federal rules restrict any use of the information to criminally investigate or prosecute any alcohol or drug abuse patient.[facility] HospitalIn the event this information is protected by the Federal Confidentiality of Alcohol and Drug Abuse Patient Records regulations: The Federal rules restrict any use of the information to criminally investigate or prosecute any alcohol or drug abuse patient.[facility] HospitalIn the event this information is protected by the Federal Confidentiality of Alcohol and Drug Abuse Patient Records regulations: The Federal rules restrict any use of the information to criminally investigate or prosecute any alcohol or drug abuse patient.[facility] HospitalIn the event this information is protected by the Federal Confidentiality of Alcohol and Drug Abuse Patient Records regulations: The Federal rules restrict any use of the information to criminally investigate or prosecute any alcohol or drug abuse patient.[facility] HospitalIn the event this information is protected by the Federal Confidentiality of Alcohol and Drug Abuse Patient Records regulations: The Federal rules restrict any use of the information to criminally investigate or prosecute any alcohol or drug abuse patient.[facility] HospitalIn the event this information is protected by the Federal Confidentiality of Alcohol and Drug Abuse Patient Records regulations: The Federal rules restrict any use of the information to criminally investigate or prosecute any alcohol or drug abuse patient.[facility] HospitalIn the event this information is protected by the Federal Confidentiality of Alcohol and Drug Abuse Patient Records regulations: The Federal rules restrict any use of the information to criminally investigate or prosecute any alcohol or drug abuse patient.[facility] HospitalIn the event this information is protected by the Federal Confidentiality of Alcohol and Drug Abuse Patient Records regulations: The Federal rules restrict any use of the information to criminally investigate or prosecute any alcohol or drug abuse patient.[facility] HospitalIn the event this information is protected by the Federal Confidentiality of Alcohol and Drug Abuse Patient Records regulations: The Federal rules restrict any use of the information to criminally investigate or prosecute any alcohol or drug abuse patient.[facility] Hospital[facility] the event this information is protected by the Federal Confidentiality of Alcohol and Drug Abuse Patient Records regulations: The Federal rules restrict any use of the information to criminally investigate or prosecute any alcohol or drug abuse patient.[facility] HospitalIn the event this information is protected by the Federal Confidentiality of Alcohol and Drug Abuse Patient Records regulations: The Federal rules restrict any use of the information to criminally investigate or prosecute any alcohol or drug abuse patient.[facility] HospitalIn the event this information is protected by the Federal Confidentiality of Alcohol and Drug Abuse Patient Records regulations: The Federal rules restrict any use of the information to criminally investigate or prosecute any alcohol or drug abuse patient.[facility] HospitalIn the event this information is protected by the Federal Confidentiality of Alcohol and Drug Abuse Patient Records regulations: The Federal rules restrict any use of the information to criminally investigate or prosecute any alcohol or drug abuse patient.[facility] HospitalIn the event this information is protected by the Federal Confidentiality of Alcohol and Drug Abuse Patient Records regulations: The Federal rules restrict any use of the information to criminally investigate or prosecute any alcohol or drug abuse patient.[facility] HospitalIn the event this information is protected by the Federal Confidentiality of Alcohol and Drug Abuse Patient Records regulations: The Federal rules restrict any use of the information to criminally investigate or prosecute any alcohol or drug abuse patient.[facility] HospitalIn the event this information is protected by the Federal Confidentiality of Alcohol and Drug Abuse Patient Records regulations: The Federal rules restrict any use of the information to criminally investigate or prosecute any alcohol or drug abuse patient.[facility] HospitalIn the event this information is protected by the Federal Confidentiality of Alcohol and Drug Abuse Patient Records regulations: The Federal rules restrict any use of the information to criminally investigate or prosecute any alcohol or drug abuse patient.[facility] HospitalIn the event this information is protected by the Federal Confidentiality of Alcohol and Drug Abuse Patient Records regulations: The Federal rules restrict any use of the information to criminally investigate or prosecute any alcohol or drug abuse patient.[facility] HospitalIn the event this information is protected by the Federal Confidentiality of Alcohol and Drug Abuse Patient Records regulations: The Federal rules restrict any use of the information to criminally investigate or prosecute any alcohol or drug abuse patient.[facility] Reason for Visit (unrecogniz ed section [...] [employer] workbench sammy Reason Onset Date Comments [facility] Health Navigation Outreach 04/11/2025 [employer] Sammy Reason Comments Follow Up Medication & labs Reason Comments Patient Question Care Teams (unrecognized sec tion and content) Barge Pilot Relationship Specialty Start Date End Date Enmanuel Carroll MD [address] [place] [id number] PCP - General 10/19/02 Barge Pilot Relationship Specialty Start Date End Date Enmanuel Carroll MD [address] [place] [address] PCP - General 10/19/02 Barge Pilot Relationship Specialty Start Date End Date Enmanuel Carroll MD [address] [place] [address] PCP - General 10/19/02 Barge Pilot Relationship Specialty Start Date End Date Enmanuel Carroll MD [address] [place] [address] PCP - General 10/19/02 Barge Pilot Relationship Specialty Start Date End Date Enmanuel Carroll MD [address] [place] [address] PCP - General 10/19/02 Barge Pilot Relationship Specialty Start Date End Date Enmanuel Carroll MD [address] [place] [address] PCP - General 10/19/02 [facility] [address] [facility] [place] [address] 03/24/23 Barge Pilot Relationship Specialty Start Date End Date Enmanuel Carroll MD [address] [facility] [place] [address] PCP - General 10/19/02 [facility] [address] [facility] [place] [address] 03/24/23 Barge Pilot Relationship Specialty Start Date End Date Enmanuel Carroll MD [address] [facility] [place] [address] PCP - General 10/19/02 [address] [place] [address] 03/24/23 Barge Pilot Relationship Specialty Start Date End Date Enmanuel Carroll MD [address] [place] [address] PCP - General 10/19/02 [address] [place] [address] 03/24/23 Barge Pilot Relationship Specialty Start Date End Date Enmanuel Carroll MD [address] [place] [address] PCP - General 10/19/02 [facility] [address] [facility] [place] [id number] 03/24/23 Barge Pilot Relationship Specialty Start Date End Date Enmanuel Carroll MD [address] [facility] [place] [address] PCP - General 10/19/02 [facility] [address] [facility] [place] [address] 03/24/23 Barge Pilot Relationship Specialty Start Date End Date Enmanuel Carroll MD [address] [facility] [place] [address] PCP - General 10/19/02 [facility] [address] [facility] [place] [address] 03/24/23 Barge Pilot Relationship Specialty Start Date End Date Enmanuel Carroll MD [address] [facility] [place] [address] PCP - General 10/19/02 [facility] [address] [facility] [place] [address] 03/24/23 Barge Pilot Relationship Specialty Start Date End Date Enmanuel Carroll MD [address] [facility] [place] [address] PCP - General 10/19/02 [facility] [address] [facility] [place] [address] 03/24/23 Barge Pilot Relationship Specialty Start Date End Date Enmanuel Carroll MD [address] [facility] [place] [address] PCP - General 10/19/02 [facility] [address] [facility] [place] [address] 03/24/23 Maddy Lowe APRN.MANAGER COUNTRY [address] [facility] [place] [address] Front End Drupal Developer Internal Medicine 09/11/24 Susannah Nickerson DIRT BIKE MECHANIC.INCINERATOR OPERATOR [address] [facility] [place] [address] Front End Drupal Developer Internal Medicine 09/11/24 Barge Pilot Relationship Specialty Start Date End Date Enmanuel Carroll MD [address] [place] [place] [address] PCP - General 10/19/02 [facility] [address] [place] [address] 03/24/23 Maddy Lowe DIRT BIKE MECHANIC.MANAGER COUNTRY [address] [place] [address] Front End Drupal Developer Internal Medicine 09/11/24 Susannah Nickerson DIRT BIKE MECHANIC.INCINERATOR OPERATOR [address] [place] [address] Front End Drupal Developer Internal Medicine 09/11/24 Barge Pilot Relationship Specialty Start Date End Date Enmanuel Carroll MD [address] [place] [address] PCP - General 10/19/02 [facility] [address] [facility] [place] [address] 03/24/23 Susannah Nickerson DIRT BIKE MECHANIC.INCINERATOR OPERATOR [address] [place] [address] Front End Drupal Developer Internal Medicine 12/26/24 Maddy Lowe, DIRT BIKE MECHANIC.MANAGER COUNTRY [address] [place] [address] Front End Drupal Developer Internal Medicine 02/21/25 Team Status: Active Member Role/Relationship Status Dates Dr. Enmanuel Carroll MD Primary Care Provider Active Team Status: Inactive Member Role/Relationship Status Dates Dr. Enmanuel Carroll MD Primary Care Provider Active Start: April 18, 2025 End: April 18, 2025 Diamond Ragland Attending Provider Active Start : April 18, 2025 End: April 18, 2025 Diamond Ragland Referring Provider Active Start : April 18, 2025 End: April 18, 2025 Barge Pilot Relationship Specialty Start Date End Date Enmanuel Carroll MD [address] [place] [address] PCP - General 10/19/02 [facility] [address] [place] [address] 03/24/23 Susannah Nickerson DIRT BIKE MECHANIC.INCINERATOR OPERATOR [address] [place] [address] Front End Drupal Developer Internal Medicine 12/26/24 Maddy Lowe APRN.MANAGER COUNTRY [address] [place] [address] Front End Drupal Developer Internal Medicine 02/21/25 Barge Pilot Relationship Specialty Start Date End Date Enmanuel Carroll MD [address] [place] [address] PCP - General 10/19/02 [facility] [address] [place] [address] 03/24/23 Susannah Nickerson DIRT BIKE MECHANIC.INCINERATOR OPERATOR [address] [place] [address] Front End Drupal Developer Internal Medicine 12/26/24 Maddy Lowe, DIRT BIKE MECHANIC.MANAGER COUNTRY [address] [place] [address] [facility] Internal Medicine 02/21/25 Team Status: Active Member Role/Relationship Status Dates Dr. Enmanuel Carroll MD Primary care physician Active Team Status: Inactive Member Role/Relationship Status Dates Dr. Enmanuel Carroll MD Primary care physician Active Start: April 18, 2025 End: April 18, 2025 Diamond Wattsing Attending physician Active Star t: April 18, 2025 End: April 18, 2025 Diamond Wattsing Referring Provider Active Start : April 18, 2025 End: April 18, 2025 Team Status: Active Member Role/Relationship Status Dates Dr. Enmanuel Carroll MD Primary care physician Active Start: June 21, 2025 Maddy Lowe BRAKE MACHINE OPERATOR, BRAKE MACHINE OPERATOR-C Attending physician Active Start: June 21, 2025 Maddy Lowe BRAKE MACHINE OPERATOR, BRAKE MACHINE OPERATOR-C Referring Provider Active Start: June 21, 2025 [...] section and content) DATE CREATED AUTHOR 01/06/2023 [facility] DATE CREATED AUTHOR AUTHOR'S ORGANIZ ATION 07/09/2025 [facility] DATE CREATED AUTHOR AUTHOR'S ORGANIZ ATION 08/12/2025 [facility] Goals (unrecognized section and content) Goals may [...] BE BASED ON THE PRIMARY CLINICAL RECORDS. [facility] [email or web address] provides no warranty or guarantee of the accuracy or completeness of information in this document.
== END | disposition home or self-care (01) ==
PROVIDERS: PCP Internal Medicine; Referring Provider Urology; Visit Provider Urology
DX: C61 Malignant neoplasm of prostate (principal)
CPT/HCPCS: 78815; A9595